=== PATIENT | female | born 1950 | race Caucasian/White ===

== ENCOUNTER 2019-03-22 07:40 | Outpatient (CLI) | payer MEDICARE, SELFPAY ==
--- NOTE | ~2019-03-22 | MR_ITS ---
EXAMINATION: MR cervical spine wo con DATE: 03/22/2019 08:58 INDICATION: Cervical radiculopathy. TECHNIQUE: Magnetic resonance imaging (MRI) of the cervical spine was performed without intravenous c ontrast. Sequences included sagittal T2-weighted FSE, sagittal STIR FSE, sagittal T1-weighted FSE, ax ial MERGE, and axial T2-weighted FSE. COMPARISON: Cervical spine radiographs 12/20/2017 FINDINGS: There is 2 mm anterolisthesis of C3 on C4. Vertebral body heights are normal. There is mild ly decreased disc height at C3-C4 and severely decreased disc height from C4-C5 through C6-C7. The sp inal cord signal intensity is normal. The following disc levels are specifically discussed: C2-C3: There is a central extrusion. There is no uncovertebral joint osteoarthritis. There is mild ri ght and severe left facet joint osteoarthritis. There is no neural foraminal stenosis. There is no ce ntral canal stenosis. C3-C4: The disc does not extend beyond the endplate margin. There is moderate bilateral uncovertebral joint osteoarthritis. There is mild right and severe left facet joint osteoarthritis. There is mild bilateral neural foraminal stenosis. There is no central canal stenosis. C4-C5: The disc is bulging. There is severe bilateral uncovertebral joint osteoarthritis. There is mi ld bilateral facet joint osteoarthritis. There is moderate right and mild left neural foraminal steno sis. There is mild central canal stenosis with ventral indentation of spinal cord. C5-C6: The disc is bulging. There is severe bilateral uncovertebral joint osteoarthritis. There is no facet joint osteoarthritis. There is moderate bilateral neural foraminal stenosis. There is mild jas tral canal stenosis with ventral indentation of spinal cord. C6-C7: The disc is bulging. There is moderate right and severe left uncovertebral joint osteoarthriti s. There is moderate bilateral facet joint osteoarthritis. There is mild right and moderate left neur al foraminal stenosis. There is mild central canal stenosis. C7-T1: The disc does not extend beyond the endplate margin. There is no uncovertebral joint osteoarth ritis. There is severe bilateral facet joint osteoarthritis. There is mild left neural foraminal sten osis. There is no central canal stenosis. IMPRESSION: 1. Severe cervical spondylosis. Reviewed, dictated and finalized at location A. GER REIMBURSEMENT
== END 2019-03-22 07:41 | disposition home or self-care (01) ==
PROVIDERS: PCP Internal Medicine; Visit Provider Internal Medicine
DX: M47.22 Other spondylosis with radiculopathy, cervical region (principal); M05.79 Rheumatoid arthritis with rheumatoid factor of multiple sites without organ or systems involvement
CPT/HCPCS: 72141

== ENCOUNTER 2019-04-04 08:45 | Outpatient (CLI) | payer MEDICARE, SELFPAY ==
--- NOTE | ~2019-04-04 | MM_ITS ---
EXAMINATION: MM screening kaleigh BI w maria l HISTORY: Screening mammogram TECHNIQUE: Craniocaudal and mediolateral oblique 3-D tomosynthesis images were obtained and synthetic 2-D images were generated. CAD analysis was submitted and interpreted. COMPARISON: No prior mammogram is available for comparison at this institution. BREAST PARENCHYMAL COMPOSITION: The breasts are heterogeneously dense, which may obscure small masses . FINDINGS: There are bilateral mammographic asymmetries. Comparison with any prior available mammogram s is recommended. If no prior examinations are available, then bilateral diagnostic mammography is re commended, with ultrasound if required. No malignant calcification, skin thickening or retraction is detected. IMPRESSION: 1. Bilateral mammographic asymmetries 2. Comparison with prior mammogram examinations is recommended; if not available, bilateral diagnosti c mammography and possibly breast ultrasound is recommended. BI-RADS Category 0: Incomplete: Needs additional imaging evaluation. Reviewed, dictated and finalized at location A. RAL SUPPLY MANAGER IMPRESSION: 1. Bilateral mammographic asymmetries 2. Comparison with prior mammogram examinations is recommended; if not availabl e, bilateral diagnostic mammography and possibly breast ultrasound is recommend ed. BI-RADS Category 0: Incomplete: Needs additional imaging evaluation.
--- NOTE | ~2019-04-04 | DEXA_ITS ---
Bone Density Report Name: Chandrika Welch Age: 69 Sex: Female Ethnicity: White Date of : 1950 Indication: postmenopausal; height loss; asthma or emphysema; rheumatoid arthritis; Referring Provider: MARGARITO HOOKS Study: Bone densitometry was performed. Exam Date: April 04, 2019 Accession number: [id number] Bone Density: Region BMD T-score Z-score Classification AP Spine (L1-L4) 0.693 -3.2 -1.0 Osteoporosis Femoral Neck (Left) 0.517 -3.0 -1.1 Osteoporosis Total Hip (Left) 0.615 -2.7 -1.1 Osteoporosis Total Hip Bilateral Avg 0.575 -3.1 -1.5 Osteoporosis Femoral Neck (Right) 0.483 -3.3 -1.4 Osteoporosis Total Hip (Right) 0.533 -3.4 -1.8 Osteoporosis World Health Organization criteria for BMD impression classify patients as: Normal (T-score at or above -1.0), Osteopenia (T-score between -1.0 and -2.5), or Osteoporosis (T-score at or below -2.5). 10-year Fracture Risk: FRAX not reported because: Some T-score for Spine Total or Hip Total or Femoral Neck at or below -2.5 Treated for osteoporosis Clinical Information Provided by Patient: Has rheumatoid arthritis Is being treated for osteoporosis Has used the following medications: Fosamax (i.e. alendronate), Vitamin D, Calcium Has the following medical conditions: Asthma or Emphysema Patient maximum height was 68 Menopause Age: 48 No regular weight bearing exercise Drinks caffeinated beverages Onset of menses at age 10 Number of children 2 Impression: The patient has osteoporosis, based on the Right Total Hip T-score. Discussion: It is important to ask patients whether they are taking their medications and to encourage continued and appropriate compliance with their osteoporosis therapies to reduce fracture risk. It is also important to review their risk factors and encourage appropriate calcium and vitamin D intakes, exercise, fall prevention and other lifestyle measures. Follow-Up: Consider a repeat BMD and Vertebral Fracture Assessment (VFA) exam in 2 years or sooner if medically necessary, to reassess this patient's status. Reported by: HANH on 04/04/2019 9:30:00 AM. Reviewed, dictated and finalized at location ADonovan WEINER
== END 2019-04-04 08:46 | disposition home or self-care (01) ==
LOC: ANHIMG 08:54
PROVIDERS: PCP Internal Medicine; Visit Provider Internal Medicine
DX: Z12.31 Encounter for screening mammogram for malignant neoplasm of breast (principal); N95.9 Unspecified menopausal and perimenopausal disorder; M81.0 Age-related osteoporosis without current pathological fracture; R92.8 Other abnormal and inconclusive findings on diagnostic imaging of breast
CPT/HCPCS: 77063; 77067; 77080

== ENCOUNTER 2019-04-19 08:56 | Outpatient (CLI) | payer MEDICARE, SELFPAY ==
--- NOTE | 2019-04-19 | EST_ITS ---
Patient Info Name: Chandrika Welch Age: 69 years : 1950 Gender: Female Ht: 66 in Wt: 115 lbs BSA: 1.55 m2 Exam Date: 04/19/2019 10:37 AM Exam Location: [facility] Stress Patient Status: Outpatient Admit Date: 04/19/2019 Staff Ordering Physician: Jarvis Castillo MD Attending Provider: Jarvis Castillo MD Exercise Technologist: Solange Torres RDCS Exercise Physician: Sanjay Palm DO Exam Type: CA stress kaye w NM Study Info Indications I25.10 - Atherosclerotic heart disease of [place] coronary artery without angina pectoris A regadenoson stress test was performed. Summary 1. 1. Negative lexiscan stress test for ischemic ST changes by ECG criteria. 2. 2. Baseline hypertension. 3. 3. Nuclear scan to follow and will be reported separately. Please correlate with it. 4. 4. Patient informed of the above results. Protocol: Lexiscan Stress ECG Details Stage: REST Duration (min): 5 min : 31 sec HR (bpm): 81 SBP (mmHg): 151 DBP (mmHg): 87 Stage: REST Duration (min): 26 min : 17 sec HR (bpm): 85 SBP (mmHg): 151 DBP (mmHg): 87 Stage: STAGE 1 Duration (min): 1 min : 0 sec HR (bpm): 103 SBP (mmHg): 141 DBP (mmHg): 83 Stage: RECOVERY Duration (min): 1 min : 0 sec HR (bpm): 109 SBP (mmHg): 139 DBP (mmHg): 82 Stage: RECOVERY Duration (min): 2 min : 0 sec HR (bpm): 109 SBP (mmHg): 139 DBP (mmHg): 82 Stage: RECOVERY Duration (min): 3 min : 0 sec HR (bpm): 108 SBP (mmHg): 138 DBP (mmHg): 81 Stage: RECOVERY Duration (min): 3 min : 18 sec HR (bpm): 105 SBP (mmHg): 138 DBP (mmHg): 81 Rest HR: 85 bpm Peak HR: 111 bpm Rest Sys BP: 151 mmHg Peak Sys BP: 141 mmHg Max Pred HR: 149 bpm % Max Pred HR: 74 % Target HR: 127 bpm Max RPP: 15,651 bpm*mmHg Termination Reason: Completed protocol Cardiac Symptoms: Shortness of breath Total Time: 1 min : 0 sec Rest Lassiter BP: 87 mmHg Peak Lassiter BP: 83 mmHg Total Dose: 0.4 mg Resting ECG Sinus rhythm with borderline ST abnormality in ant/inf leads. Stress ECG No ST changes. Arrhythmias None. Report Signatures
--- NOTE | ~2019-04-19 | NM_ITS ---
EXAMINATION: NM kaye stress w perfusion EXAM DATE: 04/19/2019 12:54 INDICATION: Atherosclerotic heart disease of [place] coronary arteries. TECHNIQUE: Rest images were obtained following intravenous administration of 8.5 mCi Tc99m tetrofosmi n (Myoview). The patient was infused intravenously with Lexiscan (regadenoson). Then, 24.9 mCi Tc99m tetrofosmin (Myoview) was administered intravenously, and stress images were obtained. Data was recon structed into short axis and horizontal and vertical long axis SPECT images. Gated SPECT images were also obtained. There is no prior study for comparison. FINDINGS: There is no definite reversible or fixed perfusion abnormality to suggest ischemia or infar ction. There is normal left ventricular wall motion. End diastolic volume: 68 mL. End-systolic volume: 28 mL. Left ventricular ejection fraction: 59%. IMPRESSION: 1. Normal myocardial perfusion at rest and during stress. 2. Left ventricular ejection fraction measuring 59%. Reviewed, dictated and finalized at location B. TEIN BROS BAGELS ASSISTANT MANAGER
== END 2019-04-19 08:57 | disposition home or self-care (01) ==
PROVIDERS: PCP Internal Medicine; Visit Provider Internal Medicine
DX: I25.10 Atherosclerotic heart disease of native coronary artery without angina pectoris (principal)
CPT/HCPCS: 78452; 93017; A9502; J2785

== ENCOUNTER 2019-05-06 11:20 | Outpatient (CLI) | payer MEDICARE, SELFPAY ==
--- NOTE | ~2019-05-06 | MMUS_ITS ---
EXAMINATION: MM diagnostic mammo BI, US breast BI limited HISTORY: Follow-up breast asymmetries TECHNIQUE: Additional 3-D tomosynthesis images of the breasts were performed and synthetic 2-D images were generated. CAD analysis was submitted and interpreted. High resolution bilateral breast ultraso und was performed. COMPARISON: Comparison to multiple prior studies sequentially, with oldest reviewed study dated 11/20. FINDINGS: MAMMOGRAPHIC FINDINGS: The breasts are heterogenously dense, which may obscure small masses. There are no suspicious masses, calcifications or architectural distortion in either breast to suggest malignancy. No significant in terval change. ULTRASOUND: The right axilla there is a 2.5 cm lymph node with normal hilum, likely reactive. No other right aubree st masses are identified. In the left breast at 12:00 there is an oval hypoechoic mass measuring 1.8 x 1.6 x 1.4 cm with internal vascularity. No significant posterior features. IMPRESSION: 1. Nonspecific oval hypoechoic left breast mass at 12:00 with internal vascularity. This does not hav e a typical appearance for intramammary lymph node. Ultrasound left breast biopsy recommended. BI-RAD S Category 4. 2. Probable benign right axillary lymph node. Six-month follow-up ultrasound recommended. BI-RADS Cat egory 3, likely benign. Reviewed, dictated and finalized at location A. IMPRESSION: 1. Nonspecific oval hypoechoic left breast mass at 12:00 with internal vascular ity. This does not have a typical appearance for intramammary lymph node. Ultra sound left breast biopsy recommended. BI-RADS Category 4. 2. Probable benign right axillary lymph node. Six-month follow-up ultrasound re commended. BI-RADS Category 3, likely benign.
== END 2019-05-06 11:21 | disposition home or self-care (01) ==
LOC: ANHIMG 11:23
PROVIDERS: PCP Internal Medicine; Visit Provider Internal Medicine
DX: R92.8 Other abnormal and inconclusive findings on diagnostic imaging of breast (principal)
CPT/HCPCS: 76642; 77066

== ENCOUNTER 2019-05-30 13:01 | Outpatient (CLI) | payer MEDICARE, SELFPAY ==
--- NOTE | ~2019-05-30 | US_ITS ---
US breast LT limited DATE: 05/30/2019 14:00 INDICATION: Nonspecific oval hypoechoic left breast mass suggested at 12:00 on 05/06/2019 bilateral di gital screening mammogram examination TECHNIQUE: High-resolution ultrasound imaging of left breast at 12:00 COMPARISON: 05/06/2019 bilateral Limited breast ultrasound bilateral diagnostic digital mammogram 04/04/2019 bilateral digital screening mammogram FINDINGS: No reproducible breast mass or suspicious shadowing is evident at 12:00. IMPRESSION: BI-RADS Category 1: Negative Recommendation: Routine annual mammographic screening Reviewed, dictated and finalized at Location A. Reviewed, dictated and finalized at location A.
== END 2019-05-30 13:02 | disposition home or self-care (01) ==
PROVIDERS: PCP Internal Medicine; Visit Provider Surgery
DX: R92.8 Other abnormal and inconclusive findings on diagnostic imaging of breast (principal)
CPT/HCPCS: 76642

== ENCOUNTER 2020-04-30 08:08 | Outpatient (CLI) | payer MEDICARE, SELFPAY ==
--- NOTE | ~2020-04-30 | XR_ITS ---
EXAMINATION: XR barium swallow modified DATE: 04/30/2020 08:54 INDICATION: Unspecified abnormal involuntary movements, history of breast tremor TECHNIQUE: Modified barium esophagram was performed by myself to administered fluoroscopy, in conjun ction with speech pathologist who administered barium in varying consistencies as per speech patholog ist documentation. This was recorded on tape. A single fluoroscopic spot image was recorded. The DAP for this procedure was 0.8 Gycm2. Fluoroscopy exposure time was 1.4 minutes. FINDINGS: Oral stage: Adequate function. Pharyngeal phase: Adequate function. Laryngeal penetration: None. Aspiration: None. Laryngeal sensitivity: Present. IMPRESSION: Normal modified esophagram. Please refer to speech pathologist findings and specific feed ing recommendations. Reviewed, dictated and finalized at location A. UP MOLD TECHNICIAN IMPRESSION: Normal modified esophagram. Please refer to speech pathologist find ings and specific feeding recommendations.
[2020-04-30 13:30] VITALS: PULSE 92; O2SAT 93
[2020-04-30 13:35] VITALS: PULSE 112; O2SAT 85
[2020-04-30 13:37] VITALS: O2SAT 87
[2020-04-30 13:38] VITALS: O2SAT 90
[2020-04-30 13:45] VITALS: PULSE 89; O2SAT 94
--- NOTE | 2020-04-30 14:02 | PCRCNOTE ---
Home o2 eval faxed to dr. zelaya called office to to inform of new set up
--- NOTE | 2020-04-30 14:03 | HOMEO2EVAL ---
Home Oxygen Evaluation RC: Home Oxygen (O2) Evaluation Start: 04/30/20 13:59 Freq: Status: Active Protocol: RPE Activity Type Activity Date Activity User E-Sign Co-Sign Detail Recorded Client Recorded Date Recorded By Document 04/30/20 13:30 ESPERANZA [id number] 04/30/20 14:02 ESPERANZA Document 04/30/20 13:35 ESPERANZA [email or web address] 04/30/20 14:02 ESPERANZA Document 04/30/20 13:37 ESPERANZA [email or web address] 04/30/20 14:02 ESPERANZA Document 04/30/20 13:38 ESPERANZA [email or web address] 04/30/20 14:02 ESPERANZA Document 04/30/20 13:45 ESPERANZA [email or web address] 04/30/20 14:02 ESPERANZA 04/30/20 04/30/20 04/30/20 13:30 13:35 13:37 Home O2 Evaluation Test Phase Resting Exercise Exercise Oxygen Delivery Room Air Room Air Nasal Cannula Oxygen Flow Rate (L/min) 1 Pulse Oximetry (90-100 %) 93 85 L 87 L Pulse Rate (60-100 beats/min) 92 112 H Activity Tolerance Excellent Ambulation Distance (feet) 600 Home Oxygen Evaluation Comments Treatment Charges O2 Evaluation - Outpatient 04/30/20 04/30/20 13:38 13:45 Home O2 Evaluation Test Phase Exercise Resting Oxygen Delivery Nasal Cannula Room Air Oxygen Flow Rate (L/min) 2 Pulse Oximetry (90-100 %) 90 94 Pulse Rate (60-100 beats/min) 89 Activity Tolerance Ambulation Distance (feet) Home Oxygen Evaluation Comments Pt. requires 2 liters with exertion/ activity. Treatment Charges
--- NOTE | 2020-04-30 16:43 | STOPEVAL ---
MODIFIED BARIUM SWALLOW EVALUATION: Thank you for referring Chandrika Welch to [facility].? Attending Provider: Jarvis Castillo MD fax# [phone] *ST Outpatient Evaluation Outpatient Past Medical History Past Medical History Source of Past Medical History Patient Neurological History Hx Other Neurological Disorders R/O; slight tremor--new Respiratory History Hx Chronic Obstructive Pulmonary Disease Yes (COPD) Evaluation Information Problem Diagnosis dysphagia Onset 2 years ago Additional Evaluation Detail pt reports having a tremor which she states is relatively new. Pt reports that she has increased mucous and coughing to the point of choking ; pt then reported that she has choked several times Prior Level of Function Prior Swallow Level Prior Intake Method Oral Prior Diet Regular (Level 7 Diet) Prior Liquid Consistency Thin (Level 0 Diet) Pain Assessment Timing of Pain Assessment Timing of Pain Assessment Assessment Self Report Self Report Pain Level 0 Pain Score Pain Score 0: Self Report Modified Barium Swallow Evaluation Consistency Solid Consistency Method of Presentation Spoon Oral Preparatory Symptoms Within Functional Limits Oral Phase Symptoms Within Functional Limits Pharyngeal Phase Symptoms Within Functional Limits Severity of Vallecular Residue None - 0% No Residue Severity of Pyriform Sinus Residue None - 0% No Residue 8 Point Laryngeal Penetration-Aspiration Material Does Not Enter Airway Scale Cervical/Esophageal Symptoms Within Functional Limits Mixed Consistency Method of Presentation Spoon Oral Preparatory Symptoms Within Functional Limits Oral Phase Symptoms Within Functional Limits Pharyngeal Phase Symptoms Within Functional Limits Severity of Vallecular Residue None - 0% No Residue Severity of Pyriform Sinus Residue None - 0% No Residue 8 Point Laryngeal Penetration-Aspiration Material Does Not Enter Airway Scale Cervical/Esophageal Symptoms Within Functional Limits Pureed Consistency Method of Presentation Spoon Oral Preparatory Symptoms Within Functional Limits Oral Phase Symptoms Within Functional Limits Pharyngeal Phase Symptoms Within Functional Limits Severity of Vallecular Residue None - 0% No Residue Severity of Pyriform Sinus Residue None - 0% No Residue 8 Point Laryngeal Penetration-Aspiration Material Does Not Enter Airway Scale Cervical/Esophageal Symptoms Within Functional Limits Thin Uncontrolled 2 Method of Presentation Straw Oral Preparatory Symptoms Within Functional Limits Oral Phase Sym
== END 2020-04-30 08:09 | disposition home or self-care (01) ==
PROVIDERS: PCP Internal Medicine; Visit Provider Internal Medicine
DX: R25.9 Unspecified abnormal involuntary movements (principal); R13.10 Dysphagia, unspecified
CPT/HCPCS: 92611; 94618

== ENCOUNTER → 2020-06-05 01:50 | Outpatient (CLI) | payer MEDICARE, SELFPAY ==
[2020-06-05 19:39] LABS: SARS-CoV-2 RNA PCR Negative
== END ==
PROVIDERS: PCP Internal Medicine; Visit Provider Internal Medicine Gastroenterology
DX: Z01.812 Encounter for preprocedural laboratory examination (principal); Z20.822 Contact with and (suspected) exposure to COVID-19
CPT/HCPCS: C9803; U0003; U0005

== ENCOUNTER 2020-06-08 00:53 | Day surgery (SDC) | payer MEDICARE, SELFPAY ==
[2020-05-29 10:52] VITALS: BMI 18.3
[2020-06-08 08:29] VITALS: BP 161/87; PULSE 94; RESP 18; TEMP 36.6; O2SAT 94; BMI 18.1
[2020-06-08] MEDS: LACTATED RINGERS 1,000 ML 150 ML IV CONT (08:37)
--- NOTE | 2020-06-08 09:02 | PM.HPGS ---
History of Present Illness History of Present Illness Consent: Risks, benefits, and alternatives have been discussed and questions answered. Patient agrees to proceed with procedure. Chief complaint: hx of colon polyps Narrative: Chandrika Welch is a 70 year old female here for colon cancer screening. She has had polyps removed in the past Review of Systems Review of Systems: All systems reviewed & are unremarkable except as noted in HPI and below PMFSH Past Medical History Medical History Abnormal finding of blood chemistry, unspecified Adult BMI <19 kg/sq m Cervicalgia Chronic mitral valve regurgitation Colon cancer screening COPD (chronic obstructive pulmonary disease) DJD (degenerative joint disease), multiple sites Elevated homocysteine Encounter for Medicare annual wellness exam Encounter for routine adult health examination without abnormal findings Encounter for screening mammogram for malignant neoplasm of breast Follow up Hyperlipidemia Migraines Mitral valve regurgitation MVP (mitral valve prolapse) On snf drug therapy Post menopausal problems Radicular pain of shoulder Resting tremor Rheumatoid arthritis Sinus drainage Trigger finger of both hands Vitamin D deficiency Surgical History Surgical History History of lymph node excision Hx of breast surgery 1974 Hx of tubal ligation 1972 Family History Family History Mother Hypertension Family history of atrial fibrillation Family history of congestive heart failure Family history of hearing loss Father Family history of chronic obstructive pulmonary disease Other Cerebrovascular accident Family history of liver disease Social History Social History Smoking packs per day: 1 Smoking cigarettes per day: 20.0 Years smoked: 36 Smoking pack-years: 36.00 Smoking status: Former smoker Tobacco type: cigarettes Alcohol intake: current Alcohol use details: socially Living arrangements: alone Gender identity (if verbalized by the patient): Female Spiritual care concerns: No Meds Home Medications and Allergies Home Medications Medication Instructions Recorded Confirmed Type cholecalciferol (vitamin D3) 50 2,000 unit PO DAILY 01/07/19 05/29/20 History mcg (2,000 unit) tablet folic acid 1 mg tablet 1 mg PO DAILY 01/07/19 05/29/20 History rosuvastatin 10 mg tablet 10 mg PO DAILY #90 tablet 08/16/19 05/29/20 Rx mecobalamin (vitamin B12) 1,000 1,000 mcg SUBLINGUAL DAILY 11/21/19 05/29/20 History mcg disintegrating tablet,sublingual sulfasalazine 500 mg tablet See Rx Instructions .ROUTE 01/27/20 05/29/20 Rx .COMPLEX #540 tablet alendronate 70 mg tablet See Rx Instructions .ROUTE 02/24/20 05/29/20 Rx .COMPLEX #12 tablet fluticasone fur. 100 mcg-umeclid See Rx Instructions .ROUTE 03/23/20 05/29/20 Rx 62.5 mcg-vilant 25 mcg .COMPLEX #60 ea inhalat.powder albuterol sulfate 90 mcg/actuation 1 inh INHALATION Q4H PRN #8.5 g 04/09/20 05/29/20 Rx aerosol inhaler Rinvoq 15 mg PO DAILY 05/29/20 05/29/20 History Allergies Allergy/AdvReac Type Severity Reaction Status Date / Time No Known Allergies Allergy Verified 06/08/20 08:28 Vital Signs Vital Signs - 24 hr 06/08/20 08:29 Temperature 36.6 C Pulse Rate 94 Respiratory Rate 18 Blood Pressure 161/87 H Pulse Oximetry 94 Exam Resp: Auscultation: clear to auscultation bilaterally Cardio: Rate: regular rate Rhythm: regular rhythm GI: GI Palp: Yes Soft to palpation and No Tenderness to palpation present (GI) Assessment and Plan Assessment and plan (1) Colon cancer screening: Code(s): Z12.11 - Encounter for screening for malignant neoplasm of colon Status: Acute Assessment and Plan: C
--- NOTE | 2020-06-08 09:20 | WPDANESEPPF ---
Anes - Initial Pre Proc Eval Procedure: Operation Date: 06/08/20 09:30 Proposed Procedures p Screening Colonoscopy - Collin Prado MD Date/Time: 06/08/20 09:20 Surgeon: Collin Prado MD Pre Op Diagnosis: hx of colon polyps Patient Data Age: 70 Gender: F Height: 5 ft 7 in Weight: 52.4 kg Last Vital Signs Temp 98 F 06/08/20 08:29 Pulse 94 06/08/20 08:29 Resp 18 06/08/20 08:29 BP 161/87 H 06/08/20 08:29 Pulse Ox 94 06/08/20 08:29 Allergies Allergy/AdvReac Type Severity Reaction Status Date / Time No Known Allergies Allergy Verified 06/08/20 08:28 Home Medications Medication Instructions Recorded Confirmed Type cholecalciferol (vitamin D3) 50 2,000 unit PO DAILY 01/07/19 05/29/20 History mcg (2,000 unit) tablet folic acid 1 mg tablet 1 mg PO DAILY 01/07/19 05/29/20 History rosuvastatin 10 mg tablet 10 mg PO DAILY #90 tablet 08/16/19 05/29/20 Rx mecobalamin (vitamin B12) 1,000 1,000 mcg SUBLINGUAL DAILY 11/21/19 05/29/20 History mcg disintegrating tablet,sublingual sulfasalazine 500 mg tablet See Rx Instructions .ROUTE 01/27/20 05/29/20 Rx .COMPLEX #540 tablet alendronate 70 mg tablet See Rx Instructions .ROUTE 02/24/20 05/29/20 Rx .COMPLEX #12 tablet fluticasone fur. 100 mcg-umeclid See Rx Instructions .ROUTE 03/23/20 05/29/20 Rx 62.5 mcg-vilant 25 mcg .COMPLEX #60 ea inhalat.powder albuterol sulfate 90 mcg/actuation 1 inh INHALATION Q4H PRN #8.5 g 04/09/20 05/29/20 Rx aerosol inhaler Rinvoq 15 mg PO DAILY 05/29/20 05/29/20 History Patient hx anesthesia problems: none Family hx anesthesia problems: none PMFSH Past Medical History Medical History Abnormal finding of blood chemistry, unspecified Adult BMI <19 kg/sq m Cervicalgia Chronic mitral valve regurgitation Colon cancer screening COPD (chronic obstructive pulmonary disease) DJD (degenerative joint disease), multiple sites Elevated homocysteine Encounter for Medicare annual wellness exam Encounter for routine adult health examination without abnormal findings Encounter for screening mammogram for malignant neoplasm of breast Follow up Hyperlipidemia Migraines Mitral valve regurgitation MVP (mitral valve prolapse) On snf drug therapy Post menopausal problems Radicular pain of shoulder Resting tremor Rheumatoid arthritis Sinus drainage Trigger finger of both hands Vitamin D deficiency Surgical History Surgical History History of lymph node excision Hx of breast surgery 1974 Hx of tubal ligation 1972 Family History Family History Mother Hypertension Family history of atrial fibrillation Family history of congestive heart failure Family history of hearing loss Father Family history of chronic obstructive pulmonary disease Other Cerebrovascular accident Family history of liver disease Social History Social History Smoking packs per day: 1 Smoking cigarettes per day: 20.0 Years smoked: 36 Smoking pack-years: 36.00 Smoking status: Former smoker Tobacco type: cigarettes Alcohol intake: current Alcohol use details: socially Living arrangements: alone Gender identity (if verbalized by the patient): Female Spiritual care concerns: No Anes - Eval Final PreProcedure Day of Procedure 06/08/20 09:20 Patient weight: normal Heart: regular rate and rhythm Lungs: clear to auscultation Airway: Mallampati scale class II Neurological: alert and oriented Last oral intake: >/= 8 hours ASA classification: III Emergent: no Anesthetic plan: proceed Anesthesia type and monitoring: general GIVS and standard monitoring Informed Consent: The patient's anesthetic plan and its attendant risks and benefits were discussed with the patient/
[2020-06-08 09:51] VITALS: BP 90/53; PULSE 81; RESP 20; O2SAT 100
[2020-06-08 10:01] VITALS: BP 111/62; PULSE 76; RESP 22; O2SAT 97
[2020-06-08 10:11] VITALS: BP 144/72; PULSE 74; RESP 18; O2SAT 97
== END 2020-06-08 10:30 | disposition home or self-care (01) ==
PROVIDERS: PCP Internal Medicine; Visit Provider Internal Medicine Gastroenterology
PROC: 0DJD8ZZ Inspection of Lower Intestinal Tract, Via Natural or Artificial Opening Endoscopic (ICD-10-PCS; CPT 45378; principal; 2020-06-08 09:30)
DX: Z12.11 Encounter for screening for malignant neoplasm of colon (principal); Z86.010 Personal history of colon polyps; J44.9 Chronic obstructive pulmonary disease, unspecified; E78.5 Hyperlipidemia, unspecified; I34.1 Nonrheumatic mitral (valve) prolapse; I34.0 Nonrheumatic mitral (valve) insufficiency; M06.9 Rheumatoid arthritis, unspecified; E55.9 Vitamin D deficiency, unspecified; Z79.51 Long term (current) use of inhaled steroids; Z87.891 Personal history of nicotine dependence
CPT/HCPCS: G0105; J2704; J7120

== ENCOUNTER 2020-09-30 10:31 | Outpatient (CLI) | payer MEDICARE, SELFPAY ==
--- NOTE | ~2020-09-30 | XR_ITS ---
EXAMINATION: XR chest 2V DATE: 09/30/2020 10:58 INDICATION: Shortness of breath TECHNIQUE: Frontal and lateral views of the chest are obtained COMPARISON: 01/06/2013 FINDINGS: There are airspace opacities of the left lung base. There is no pleural effusion or pneumot horax. The cardiomediastinal silhouette is normal. There is moderate thoracic spondylosis. IMPRESSION: 1. Left basilar airspace opacity, consistent with atelectasis versus pneumonia. Reviewed, dictated and finalized at location B.
[2020-09-30 11:47] LABS: Basophils Percent Auto 0.6 % (0.2-1.2); Eosinophils Absolute Auto 0.1 K/mm3 (0-0.3); Eosinophils Percent Auto 1.6 % (0-4.4); Hematocrit 35.9 % (37.0-47.0); Hemoglobin 11.4 g/dL (12.0-15.0); Immature Granulocyte Absolute 0.04 K/mm3 (0.00-0.031); Immature Granulocyte Percent A 0.6 % (0-0.5); Lymphocytes Absolute Auto 1.12 K/mm3 (0.9-3.2); Lymphocytes Percent Auto 16.3 % (18.3-44.2); Mean Corpuscular HGB Conc 31.8 g/dl (32-36); Mean Corpuscular Hemoglobin 30.5 pg (26-34); Mean Platelet Volume 8.8 fl (7.4-10.4); Monocytes Absolute Auto 0.9 K/mm3 (0.1-0.6); Monocytes Percent Auto 12.7 % (2.6-8.5); Neutrophils Absolute Auto 4.7 K/mm3 (1.3-6.7); Neutrophils Percent Auto 68.2 % (45.5-73.1); Platelet Count Result 311 k/mm3 (150-375); Red Blood Count 3.74 M/mm3 (4.2-5.4); Red Cell Distribution Width 13.8 % (11.5-14.5); White Blood Count 6.9 K/mm3 (4.5-10.0)
[2020-09-30 12:02] LABS: Anion Gap 8 mmol/L (8-16); Blood Urea Nitrogen 12 mg/dL (7-17); Calcium 9.7 mg/dL (8.4-10.2); Carbon Dioxide 27 mmol/L (22-30); Chloride 106 mmol/L (98-107); Estimated Glomerular Filt Rate > 60; Glucose 94 mg/dL (65-110); Potassium 4.2 mmol/L (3.4-5.0); Sodium 141 mmol/L (137-145)
[2020-09-30 12:24] LABS: Influenza Control Positive
== END 2020-09-30 10:32 | disposition home or self-care (01) ==
LOC: ANHIMG 10:41
PROVIDERS: PCP Internal Medicine; Visit Provider Internal Medicine
DX: R68.89 Other general symptoms and signs (principal); G43.901 Migraine, unspecified, not intractable, with status migrainosus; R91.8 Other nonspecific abnormal finding of lung field
CPT/HCPCS: 71046; 80048; 85025; 87804

== ENCOUNTER → 2020-10-02 03:50 | Outpatient (CLI) | payer MEDICARE, SELFPAY ==
[2020-10-03 04:07] LABS: SARS-CoV-2 RNA PCR Negative
== END ==
PROVIDERS: PCP Internal Medicine; Visit Provider Internal Medicine
DX: R68.89 Other general symptoms and signs (principal); Z20.822 Contact with and (suspected) exposure to COVID-19
CPT/HCPCS: C9803; U0003; U0005

== ENCOUNTER 2020-10-08 08:18 | Outpatient (CLI) | payer MEDICARE, SELFPAY ==
--- NOTE | ~2020-10-08 | XR_ITS ---
EXAMINATION: XR chest 2V DATE: 10/08/2020 08:44 INDICATION: COPD presenting with pneumonia TECHNIQUE: PA and lateral views of the chest were obtained. COMPARISON: Chest radiograph dated 09/30/2020 FINDINGS: Hyperexpansion of the lungs with increased lucency and architectural distortion the upper lung zones consistent with emphysema. No focal airspace opacities, pulmonary edema, pleural effusion or pneumoth orax. The cardiomediastinal silhouette is normal. Mild thoracic and moderate lower cervical spondylos is. IMPRESSION: 1. Emphysema. Reviewed, dictated and finalized at location A. IMPRESSION: 1. Emphysema.
== END 2020-10-08 08:19 | disposition home or self-care (01) ==
PROVIDERS: PCP Internal Medicine; Visit Provider Internal Medicine
DX: J18.9 Pneumonia, unspecified organism (principal); J43.9 Emphysema, unspecified
CPT/HCPCS: 71046

== ENCOUNTER 2021-05-12 09:59 | Outpatient (CLI) | payer MEDICARE, SELFPAY ==
--- NOTE | ~2021-05-12 | CT_ITS ---
EXAMINATION: CT abdomen pelvis wo con DATE: 05/12/2021 10:12 INDICATION: Hematuria TECHNIQUE: Computed tomography (CT) of the abdomen and pelvis was performed without intravenous contr ast. The dose-length product (DLP) was 144.39 mGy-cm. Automated exposure control and iterative recons truction technique were employed. COMPARISON: 01/04/2018 FINDINGS: There is severe emphysema visualized lung bases. The heart size is normal. There is calcifi ed atherosclerosis of the aorta and many of the other arteries. The liver, spleen, pancreas, and adre nal glands are normal. Stones are present in the nondistended gallbladder. There is a 1.5 cm cyst in the upper pole of the right kidney. The left kidney is unremarkable. No stones are identified in the kidneys, ureters, or bladder. There is no hydronephrosis or hydroureter. No pathologically enlarged a bdominal or pelvic lymph nodes are identified. There is no free intraperitoneal gas or evidence of [place] obstruction. There is calcified atherosclerosis of the aorta and many of the other arteries. A mo derate volume of colonic stool is present. There is mild lumbar spondylosis. IMPRESSION: 1. No CT correlate for the patient's symptoms. 2. Cholelithiasis without evidence of cholecystitis. Reviewed, dictated and finalized at location B.
== END 2021-05-12 10:00 | disposition home or self-care (01) ==
LOC: ANHIMG 10:02
PROVIDERS: PCP Internal Medicine; Visit Provider Internal Medicine
DX: R31.9 Hematuria, unspecified (principal); K80.20 Calculus of gallbladder without cholecystitis without obstruction; N28.1 Cyst of kidney, acquired; I70.0 Atherosclerosis of aorta; M47.816 Spondylosis without myelopathy or radiculopathy, lumbar region
CPT/HCPCS: 74176

== ENCOUNTER 2021-06-25 11:36 | Outpatient (CLI) | payer MEDICARE, SELFPAY ==
--- NOTE | ~2021-06-25 | XR_ITS ---
EXAMINATION: XR hip RT min 2V DATE: 06/25/2021 12:31 INDICATION: Multiple joint pain. TECHNIQUE: 2 views of right hip were obtained. COMPARISON: None. FINDINGS: Bone alignment is normal. No fracture. There is mild right hip osteoarthritis. IMPRESSION: 1. Mild right hip osteoarthritis. Reviewed, dictated and finalized at location A.
--- NOTE | ~2021-06-25 | XR_ITS ---
EXAMINATION: XR ankle RT 2V, XR foot LT 2V, XR foot RT 2V, XR ankle LT 2V DATE: 06/25/2021 12:30 INDICATION: Multiple joint pain TECHNIQUE: 1. Anteroposterior and lateral view of the right ankle were obtained. 2. Dorsoplantar and lateral views of the right foot were obtained. 3. Anteroposterior and lateral view of the left ankle were obtained. 2. Dorsoplantar and lateral views of the left foot were obtained. COMPARISON: None. FINDINGS: Alignment of the left foot and ankle is normal. No fracture. Relatively symmetric pattern of mild lux yarticular osteoarthritis at multiple joints throughout the right foot. Prominent juxta articular ero kushal with thin sclerotic margins and overhanging cortical edges at the lateral aspect of the head of the right fifth metatarsal with appearance classic for gout. A couple additional smaller scattered hernandez barticular lucencies with thin sclerotic margins at the lateral head of the right first metatarsal an d at the medial head of the left first metatarsal which could represent additional erosions. Couple s mall sclerotic bone islands at the right calcaneus and at the right second middle phalanx. No ankle j oint effusions. The soft tissues are unremarkable. IMPRESSION: 1. Juxta articular erosion at the head of the right fifth metatarsal and a couple additional smaller likely erosions at the heads of the bilateral first metatarsals. Differential would include gout or o ther crystalline arthritis or potentially other inflammatory arthritis such as rheumatoid although th e relative preservation of the joint space at the fifth metatarsal phalangeal joint despite the dispr oportionately large erosion would favor a crystalline arthropathy. 2. Mild polyarticular osteoarthritis at the bilateral feet. Reviewed, dictated and finalized at location A. IMPRESSION: 1. Juxta articular erosion at the head of the right fifth metatarsal and a coup le additional smaller likely erosions at the heads of the bilateral first metat arsals. Differential would include gout or other crystalline arthritis or poten tially other inflammatory arthritis such as rheumatoid although the relative pr eservation of the joint space at the fifth metatarsal phalangeal joint despite the disproportionately large erosion would favor a crystalline arthropathy. 2. Mild polyarticular osteoarthritis at the bilateral feet. IMPRESSION: 1. Juxta articular erosion at the head of the right fifth metatarsal and a coup le additional smaller likely erosions at the heads of the bilateral first metat arsals. Differential would include gout or other crystalline arthritis or poten tially other inflammatory arthritis such as rheumatoid although the relative pr eservation of the joint space at the fifth metatarsal phalangeal joint despite the disproportionately large erosion would favor a crystalline arthropathy. 2. Mild polyarticular osteoarthritis at the bilateral feet. IMPRESSION: 1. Juxta articular erosion at the head of the right fifth metatarsal and a coup le additional smaller likely erosions at the heads of the bilateral first metat arsals. Differential would include gout or other crystalline arthritis or poten tially other inflammatory arthritis such as rheumatoid although the relative pr eservation of the joint space at the fifth metatarsal phalangeal joint despite the disproportionately large erosion would favor a crystalline arthropathy. 2. Mild polyarticular osteoarthritis at the bilateral feet.
--- NOTE | ~2021-06-25 | XR_ITS ---
EXAMINATION: XR wrist RT 2V DATE: 06/25/2021 12:30 INDICATION: Multiple joint pain. TECHNIQUE: 2 views of right wrist were obtained. COMPARISON: None. FINDINGS: Bone alignment is normal. No fracture. There is mild osteoarthritis of distal radioulnar tomas int, triscaphe joint, and first carpometacarpal joint. IMPRESSION: 1. Mild polyarticular osteoarthritis. Reviewed, dictated and finalized at location A.
--- NOTE | ~2021-06-25 | XR_ITS ---
EXAMINATION: XR hip LT min 2V DATE: 06/25/2021 12:31 INDICATION: Multiple joint pain. TECHNIQUE: 2 views of left hip were obtained. COMPARISON: None. FINDINGS: Bone alignment is normal. No fracture. There is mild left hip osteoarthritis. IMPRESSION: 1. Mild left hip osteoarthritis. Reviewed, dictated and finalized at location A.
--- NOTE | ~2021-06-25 | XR_ITS ---
EXAMINATION: XR elbow RT 2V, XR elbow LT 2V DATE: 06/25/2021 12:30 INDICATION: Multiple joint pain TECHNIQUE: 1. Anteroposterior and lateral views of the right elbow were obtained. 2. Anteroposterior and lateral views of the left elbow were obtained. COMPARISON: None. FINDINGS: Diffuse osteopenia. Alignment is normal at both elbows. No fracture. Joint spaces are normal. No eros ions. Soft tissues are unremarkable. No elbow joint effusions. IMPRESSION: 1. Diffuse osteopenia. Otherwise negative bilateral oblique radiographs. Reviewed, dictated and finalized at location A. IMPRESSION: 1. Diffuse osteopenia. Otherwise negative bilateral oblique radiographs.
--- NOTE | ~2021-06-25 | XR_ITS ---
EXAMINATION: XR shoulder LT min 2V, XR shoulder RT min 2V DATE: 06/25/2021 12:31 INDICATION: Multiple joint pain TECHNIQUE: 1. AP and axillary views of the left shoulder were obtained. 2. AP and axillary views of the right shoulder were obtained. COMPARISON: None FINDINGS: Normal alignment at both shoulders. No fracture.Mild osteoarthritis at the bilateral acromioclavicul ar joints. Right glenohumeral joint space appears relatively preserved. The left glenohumeral joint s pace is not well profiled but appears likely mildly narrowed. No evident erosions. Severe lower cervi myesha and mild to moderate thoracic spondylosis. Visualized portions of the lungs are clear. Soft tiss ues are unremarkable. IMPRESSION: Mild right glenohumeral and bilateral acromioclavicular osteoarthritis. Reviewed, dictated and finalized at location A. IMPRESSION: Mild right glenohumeral and bilateral acromioclavicular osteoarthritis.
--- NOTE | ~2021-06-25 | XR_ITS ---
EXAMINATION: XR hand LT 2V DATE: 06/25/2021 12:32 INDICATION: Multiple joint pain TECHNIQUE: 1. Posteroanterior and lateral views of the left wrist were obtained. 2. Dorsal palmar and lateral views of the left hand were obtained. 3. Posteroanterior and lateral views of the right wrist were obtained. 2. Dorsal palmar and lateral views of the right hand were obtained. COMPARISON: None. FINDINGS: There is 2 mm ulnar minus variance on both the left and right. Chronic widening of the left scapholun ate interval consistent with scapholunate ligament insufficiency. Alignment of the hands and wrists i s otherwise normal normal. No fracture identified. Relatively symmetric polyarticular osteoarthritis at the bilateral hands and wrists. This is of moderate severity at the left midcarpal, bilateral tri scaphe joints, the left second-fourth and right second, fourth and fifth distal interphalangeal joint s and right fifth proximal interphalangeal joint and otherwise mild at the remaining bilateral interp halangeal joints, metacarpophalangeal joints, the distal radioulnar, wrist, midcarpal and first carpa l metacarpal joints. There are new periarticular erosions at the radial and ulnar aspects of the head of the right first metacarpal, at the head of the fifth proximal phalanx and base of the bilateral f ifth middle phalanges and at the radial side of the base of the left second distal phalanx. No eviden t progression of additional lucency suspicious for chronic erosions at the right ulnar styloid proces s, the head of the right second metacarpal and head of the right middle phalanx. Mild periarticular soft tissue swelling at a few of the interphalangeal joints. IMPRESSION: 1. Several new periarticular erosions at a few of the metacarpophalangeal and interphalangeal joints likely related to a reported history of rheumatoid arthritis. Differential would include other iván lline arthropathy such as gout or other inflammatory arthritides including bradycardiac of arthritis. 2. Mild to moderate polyarticular osteoarthritis at the bilateral hands and wrists. 3. 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 Reviewed, dictated and finalized at location A. IMPRESSION: 1. Several new periarticular erosions at a few of the metacarpophalangeal and i nterphalangeal joints likely related to a reported history of rheumatoid arthri tis. Differential would include other crystalline arthropathy such as gout or o ther inflammatory arthritides including bradycardiac of arthritis. 2. Mild to moderate polyarticular osteoarthritis at the bilateral hands and wri sts. 3. Widening of the scapholunate interval consistent with scapholunate ligament insufficiency with atypical moderate severity osteoarthritis at the midcarpal j oint suggesting developing secondary scapholunate advanced collapse (SLAC) warren t.
--- NOTE | ~2021-06-25 | XR_ITS ---
EXAMINATION: XR hand RT 2V, XR wrist LT 2V DATE: 06/25/2021 12:32 INDICATION: Multiple joint pain TECHNIQUE: 1. Posteroanterior and lateral views of the left wrist were obtained. 2. Dorsal palmar and lateral views of the left hand were obtained. 3. Posteroanterior and lateral views of the right wrist were obtained. 2. Dorsal palmar and lateral views of the right hand were obtained. COMPARISON: None. FINDINGS: There is 2 mm ulnar minus variance on both the left and right. Chronic widening of the left scapholun ate interval consistent with scapholunate ligament insufficiency. Alignment of the hands and wrists i s otherwise normal normal. No fracture identified. Relatively symmetric polyarticular osteoarthritis at the bilateral hands and wrists. This is of moderate severity at the left midcarpal, bilateral lalo caphe joints, the left second-fourth and right second, fourth and fifth distal interphalangeal joints and right fifth proximal interphalangeal joint and otherwise mild at the remaining bilateral interph alangeal joints, metacarpophalangeal joints, the distal radioulnar, wrist, midcarpal and first carpal metacarpal joints. There are new periarticular erosions at the radial and ulnar aspects of the head of the right first metacarpal, at the head of the fifth proximal phalanx and base of the bilateral fi fth middle phalanges and at the radial side of the base of the left second distal phalanx. No evident progression of additional lucency suspicious for chronic erosions at the right ulnar styloid process , the head of the right second metacarpal and head of the right middle phalanx. Mild periarticular so ft tissue swelling at a few of the interphalangeal joints. IMPRESSION: 1. Several new periarticular erosions at a few of the metacarpophalangeal and interphalangeal joints likely related to a reported history of rheumatoid arthritis. Differential would include other iván lline arthropathy such as gout or other inflammatory arthritides including bradycardiac of arthritis. 2. Mild to moderate polyarticular osteoarthritis at the bilateral hands and wrists. 3. 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 Reviewed, dictated and finalized at location A. Reviewed, dictated and finalized at location A. IMPRESSION: 1. Several new periarticular erosions at a few of the metacarpophalangeal and i nterphalangeal joints likely related to a reported history of rheumatoid arthri tis. Differential would include other crystalline arthropathy such as gout or o ther inflammatory arthritides including bradycardiac of arthritis. 2. Mild to moderate polyarticular osteoarthritis at the bilateral hands and wri sts. 3. Widening of the scapholunate interval consistent with scapholunate ligament insufficiency with atypical moderate severity osteoarthritis at the midcarpal j oint suggesting developing secondary scapholunate advanced collapse (SLAC) wris t.
--- NOTE | ~2021-06-25 | XR_ITS ---
EXAMINATION: XR knee LT 2V, XR knee RT 2V DATE: 06/25/2021 12:31 INDICATION: Multiple joint pain TECHNIQUE: 1. Weight bearing anterior and mildly flexed lateral views of the right knee were obtained. 2. Weight bearing anterior and mildly flexed lateral views of the left knee were obtained. COMPARISON: None. FINDINGS: Alignment is normal at both knees. No fracture. Mild joint space narrowing at the medial and lateral compartments of the right knee. Joint spaces in the left knee are normal. No erosions. Soft tissues a re unremarkable with no knee joint effusion. IMPRESSION: 1. Mild osteoarthritis at the medial and lateral compartments of the right knee. 2. Negative left knee radiographs. Reviewed, dictated and finalized at location A. IMPRESSION: 1. Mild osteoarthritis at the medial and lateral compartments of the right knee . 2. Negative left knee radiographs.
== END 2021-06-25 11:37 | disposition home or self-care (01) ==
PROVIDERS: PCP Internal Medicine; Visit Provider Internal Medicine Rheumatology
DX: M25.50 Pain in unspecified joint (principal); M89.9 Disorder of bone, unspecified; M15.9 Polyosteoarthritis, unspecified; M85.89 Other specified disorders of bone density and structure, multiple sites
CPT/HCPCS: 73030; 73070; 73100; 73120; 73502; 73560; 73600; 73620

== ENCOUNTER 2022-02-16 10:01 | Outpatient (CLI) | payer MEDICARE, SELFPAY ==
--- NOTE | ~2022-02-16 | XR_ITS ---
EXAMINATION: XR chest 2V DATE: 02/16/2022 10:39 INDICATION: Other general symptoms and signs TECHNIQUE: PA and lateral views of the chest are obtained. COMPARISON: 10/08/2020 FINDINGS: The lungs are hyperinflated but free of acute opacities. No pleural effusion or pneumothora x. The cardiomediastinal silhouette is normal. There is moderate thoracic spondylosis. IMPRESSION: 1. No acute cardiopulmonary abnormality. Reviewed, dictated and finalized at location B. [employer] SERVER ON CALL
[2022-02-16 10:47] LABS: Basophils Percent Auto 0.4 % (0.2-1.2); Eosinophils Absolute Auto 0.1 K/mm3 (0-0.3); Eosinophils Percent Auto 1.3 % (0-4.4); Hematocrit 38.9 % (37.0-47.0); Hemoglobin 12.2 g/dL (12.0-15.0); Immature Granulocyte Absolute 0.03 K/mm3 (0.00-0.031); Immature Granulocyte Percent A 0.5 % (0-0.5); Lymphocytes Absolute Auto 0.31 K/mm3 (0.9-3.2); Lymphocytes Percent Auto 5.6 % (18.3-44.2); Mean Corpuscular HGB Conc 31.4 g/dl (32-36); Mean Corpuscular Hemoglobin 30.5 pg (26-34); Mean Corpuscular Volume 97.3 fl (80-100); Mean Platelet Volume 9.6 fl (7.4-10.4); Monocytes Absolute Auto 0.8 K/mm3 (0.1-0.6); Monocytes Percent Auto 14.2 % (2.6-8.5); Neutrophils Absolute Auto 4.4 K/mm3 (1.3-6.7); Platelet Count Result 243 k/mm3 (150-375); Red Cell Distribution Width 13.4 % (11.5-14.5); White Blood Count 5.6 K/mm3 (4.5-10.0)
[2022-02-16 10:55] LABS: Anion Gap 7 mmol/L (8-16); Blood Urea Nitrogen 12 mg/dL (7-17); Calcium 8.8 mg/dL (8.4-10.2); Carbon Dioxide 27 mmol/L (22-30); Chloride 101 mmol/L (98-107); Cholesterol 180 mg/dL (0-200); Estimated Glomerular Filt Rate > 60; Glucose 116 mg/dL (65-110); HDL Direct 93 mg/dL; Potassium 3.6 mmol/L (3.4-5.0); Sodium 135 mmol/L (137-145); Triglycerides 65 mg/dL (<150)
[2022-02-16 11:06] LABS: LDL Cholesterol Direct 53 mg/dL
[2022-02-16 11:24] LABS: Hemoglobin A1C 5.7 % (<5.7)
[2022-02-16 11:25] LABS: Thyroid Stimulating Hormone 0.251 uIU/mL (0.465-4.680)
[2022-02-16 11:26] LABS: Influenza A QL RT-PCR Negative (Negative); Influenza B QL RT-PCR Negative (Negative); SARS-CoV-2 RNA PCR Positive
[2022-02-16 11:46] LABS: Free T4 Free Thyroxine 1.35 ng/mL (0.78-2.19); Vitamin D 25 Hydroxy 55.3 ng/mL
== END 2022-02-16 10:02 | disposition home or self-care (01) ==
PROVIDERS: PCP Internal Medicine; Visit Provider Internal Medicine
DX: R79.9 Abnormal finding of blood chemistry, unspecified (principal); E78.5 Hyperlipidemia, unspecified; E55.9 Vitamin D deficiency, unspecified; R68.89 Other general symptoms and signs; Z79.899 Other long term (current) drug therapy
CPT/HCPCS: 71046; 80048; 80061; 82306; 83036; 84439; 84443; 85025; 87636

== ENCOUNTER 2022-07-18 14:53 | Observation (INO) | payer MEDICARE, SELFPAY ==
[2022-07-18] VITALS (21 sets, daily range): BP systolic 97–127; BP diastolic 61–79; PULSE 93–119; RESP 13–120; TEMP 37.1–37.3; O2SAT 80–100
--- NOTE | ~2022-07-18 | CT_ITS ---
EXAMINATION: CT cervical spine wo con DATE: 07/19/2022 11:36 INDICATION: Neck pain. TECHNIQUE: Computed tomography (CT) of the cervical spine was performed without intravenous contrast. Automated exposure control and iterative reconstruction technique were employed. The dose-length pro duct was 103.99 mGy-cm. COMPARISON: None FINDINGS: Emphysema is noted. There is 2 mm retrolisthesis of C5 on C6 and C7 on T1. There is mild ky phosis of cervical spine. Vertebral body heights are normal. There is mildly decreased disc height at C2-C3 and C3-C4 and severely decreased disc height from C4-C5 through C6-C7. The following disc leve ls are specifically discussed: C2-C3: There is no uncovertebral joint osteoarthritis. There is mild right and severe left facet join t osteoarthritis. There is no neural foraminal stenosis. There is no central canal stenosis. C3-C4: There is moderate bilateral uncovertebral joint osteoarthritis. There is severe bilateral face t joint osteoarthritis. There is mild bilateral neural foraminal stenosis. There is no central canal stenosis. C4-C5: There is severe bilateral uncovertebral joint osteoarthritis. There is mild right and severe l eft facet joint osteoarthritis. There is moderate right and mild left neural foraminal stenosis. Ther e is mild central canal stenosis. C5-C6: There is severe bilateral uncovertebral joint osteoarthritis. There is mild bilateral facet tomas int osteoarthritis. There is moderate bilateral neural foraminal stenosis. There is mild central herson l stenosis. C6-C7: There is severe bilateral uncovertebral joint osteoarthritis. There is severe right and modera te left facet joint osteoarthritis. There is mild bilateral neural foraminal stenosis. There is mild central canal stenosis. C7-T1: There is no uncovertebral joint osteoarthritis. There is severe bilateral facet joint osteoart hritis. There is mild left neural foraminal stenosis. There is no central canal stenosis. IMPRESSION: 1. No fracture. 2. Severe cervical spondylosis. Reviewed, dictated and finalized at location L.
--- NOTE | ~2022-07-18 | CT_ITS ---
EXAMINATION: CTA chest PE protocol DATE: 07/18/2022 16:52 INDICATION: Chest wall pain with breathing. Shortness of breath. TECHNIQUE: Computed tomography (CT) pulmonary angiogram of the chest was performed with 100 mL Omnipa que-350 intravenous contrast. Additional 3D reconstructions utilizing coronal maximum intensity proje ction (MIP) were performed. Automated exposure control and iterative reconstruction technique were em ployed. The dose-length product was 193.46 mGy-cm. COMPARISON: None FINDINGS: Excellent contrast opacification of the pulmonary arteries. There is mild streak artifact from dense contrast in the superior vena cava and right atrium. Mild scattered respiratory motion artifact which does not significantly limit evaluation. No pulmonary embolism. No pneumonia, pulmonary edema, pleur al effusion or pneumothorax. Mild cardiomegaly with mild right ventricular and right atrial enlargeme nt. There is enlargement of the central pulmonary arteries consistent with pulmonary arterial hyperte nsion. Small amount of atherosclerotic coronary artery calcification. No pericardial effusion. Thorac ic aorta is normal in caliber with no dissection. No pathologically enlarged thoracic lymphadenopathy . Multiple small calcified gallstones in the dependent aspect of the normal gallbladder. 1 cm cyst at the upper pole of the right kidney. Moderate thoracic spondylosis. IMPRESSION: 1. Severe emphysema and enlargement of the central pulmonary arteries consistent with pulmonary arter ial hypertension. No acute cardiopulmonary disease. 2. Cholelithiasis. Reviewed, dictated and finalized at location A. IMPRESSION: 1. Severe emphysema and enlargement of the central pulmonary arteries consisten t with pulmonary arterial hypertension. No acute cardiopulmonary disease. 2. Cholelithiasis.
--- NOTE | ~2022-07-18 | XR_ITS ---
EXAMINATION: XR chest 2V DATE: 07/18/2022 15:26 INDICATION: Shortness of breath with back pain and fever TECHNIQUE: frontal and lateral views of the chest were obtained. COMPARISON: Chest radiograph dated 02/16/2022 FINDINGS: Mild hyperexpansion of lungs with increased retrosternal clear space and increased lucency and yonathan ectural distortion in the upper lung zones consistent with emphysema. Blunting at the bilateral poste rior sulci which could relate to be hyperexpansion or very small pleural effusions. No other airspace opacities, pulmonary edema or pneumothorax. The cardiomediastinal silhouette is within normal limits for AP technique. Mild lumbar dextrocurvature. Chronic mild anterior wedging of a couple upper thora cic vertebral bodies. IMPRESSION: 1. Emphysema with blunting at the posterior sulci which could be due to the emphysema or very small p leural effusions. Reviewed, dictated and finalized at location A. IMPRESSION: 1. Emphysema with blunting at the posterior sulci which could be due to the emp hysema or very small pleural effusions.
--- NOTE | 2022-07-18 14:59 | ECG_ITS ---
Measurements Intervals [place] Rate: 0 P: MS: 0 QRS: QRSD: 0 T: QT: 0 QTc: 0 Interpretive Statements SINUS OR ECTOPIC ATRIAL TACHYCARDIA NON-CONDUCTED PREMATURE ATRIAL COMPLEXES BORDERLINE ST-T WAVE ABNORMALITY- DIFFUSE LEADS BASELINE ARTIFACT- AVR, AVL, AVF, V1-V6 ABNORMAL ECG NO PREVIOUS ECG AVAILABLE FOR COMPARISON Electronically Signed On 07-18-2022 21:18:14 CDT by Sanjay Palm D.O.
[2022-07-18 15:12] LABS: Hematocrit 37.3 % (37.0-47.0); Hemoglobin 12.1 g/dL (12.0-15.0); Mean Corpuscular HGB Conc 32.4 g/dl (32-36); Mean Corpuscular Hemoglobin 31.3 pg (26-34); Mean Corpuscular Volume 96.4 fl (80-100); Mean Platelet Volume 8.9 fl (7.4-10.4); Platelet Count Result 210 k/mm3 (150-375); Red Blood Count 3.87 M/mm3 (4.2-5.4); Red Cell Distribution Width 13.3 % (11.5-14.5)
[2022-07-18 15:25] LABS: Alanine Aminotransferase 25 U/L (6-35); Albumin Level 4.2 g/dL (3.5-5.1); Alkaline Phosphatase 37 U/L (38-126); Anion Gap 6 mmol/L (8-16); Aspartate Amino Transferase 32 U/L (14-36); Bilirubin,Total 0.5 mg/dL (0.2-1.3); Blood Urea Nitrogen 30 mg/dL (7-17); Calcium 8.1 mg/dL (8.4-10.2); Carbon Dioxide 26 mmol/L (22-30); Chloride 102 mmol/L (98-107); Estimated CRCL calculation 74 ml/min; Estimated Glomerular Filt Rate > 60; Glucose 102 mg/dL (65-110); Potassium 3.9 mmol/L (3.4-5.0); Sodium 134 mmol/L (137-145)
[2022-07-18 15:42] LABS: Band Neutrophils Percent 18 % (0-6); Monocytes Absolute Manual 0.55 K/mm3 (0.1-0.90); Monocytes Percent Manual 11 % (3-9); Neutrophils Absolute Manual 4.25 K/mm3 (1.7-7.2); Neutrophils Percent Manual 67 % (46-73); Total Cells Counted 100
[2022-07-18 15:43] LABS: Platelet Estimate Adequate (Adequate); Schistocytes None Seen (NORMAL)
[2022-07-18] MEDS: KETOROLAC 15 MG/ML VIAL (*BKC) IV PUSH (15:55)
[2022-07-18] MEDS: SODIUM CHLORIDE 0.9% IV 1,000 ML 999 ML IV CONT (15:56)
[2022-07-18 16:28] LABS: Influenza A QL RT-PCR Negative (Negative); Influenza B QL RT-PCR Negative (Negative); SARS-CoV-2 RNA PCR Negative (Negative)
--- NOTE | 2022-07-18 17:10 | PC.NURSE ---
Hypoxia noted on monitor, pt placed on 2L NC.
[2022-07-18] MEDS: IPRATROPIUM BR 0.02% INH SOLN 0.5 MG/2.5 ML VIAL INHALATION (17:53)
[2022-07-18] MEDS: LEVALBUTEROL NEB 1.25 MG/3 ML INHALATION (17:53)
--- NOTE | 2022-07-18 18:30 | ED.GENADULT ---
HPI - General Adult General Chief complaint: Shortness of Breath/Dyspnea Stated complaint: SOB, upper back pain Time Seen by Provider: 07/18/22 14:57 History of Present Illness HPI narrative: Patient is a 72-year-old female who presents ER with shortness of breath. Reports she woke up this morning and been feeling short of breath throughout the day. Has history of COPD and emphysema. She reports she started having some back pain along with it. Mild pain with deep breath. She also reports generalized myalgias body aches into her legs. She reports that she had a temperature of 100.5 ?F. No runny nose or sore throat. She does have some cough. No chest pain or pressure. No known sick contacts. Patient reports dysuria x3 over the last week. Related Data Home Medications Medication Instructions Recorded Confirmed cholecalciferol (vitamin D3) 50 2,000 unit PO DAILY 01/07/19 07/15/22 mcg (2,000 unit) tablet folic acid 1 mg tablet 1 mg PO DAILY 01/07/19 07/15/22 mecobalamin (vitamin B12) 1,000 1,000 mcg sublingual DAILY 11/21/19 07/15/22 mcg disintegrating tablet,sublingual Rinvoq 15 mg PO DAILY 05/29/20 07/15/22 Allergies Allergy/AdvReac Type Severity Reaction Status Date / Time No Known Allergies Allergy Verified 07/18/22 15:06 Review of Systems Review of Systems: All systems reviewed & are unremarkable except as noted in HPI and below Constitutional: Constitutional: Denies chills, Reports fatigue and Reports fever(s) ENT: Denies nasal congestion and Denies sore throat Cardiovascular: Cardiovascular: Denies chest pain, Denies rapid heart rate and Denies radiating jaw, neck or arm pain Respiratory: Respiratory: Reports cough, Reports dyspnea and Denies wheezing Gastrointestinal: Gastrointestinal: Denies abdominal pain, Reports nausea and Denies vomiting Genitourinary: Genitourinary: Denies nocturia and Reports dysuria Musculoskeletal: Musculoskeletal: Reports back pain, Reports myalgias, Denies arthralgias and Denies joint swelling PMFSH Past Medical History Medical History Abnormal finding of blood chemistry, unspecified Adult BMI <19 kg/sq m Cervicalgia Chronic mitral valve regurgitation Colon cancer screening COPD (chronic obstructive pulmonary disease) DJD (degenerative joint disease), multiple sites Elevated coronary artery calcium score Elevated homocysteine Encounter for Medicare annual wellness exam Encounter for routine adult health examination without abnormal findings Encounter for screening mammogram for malignant neoplasm of breast Follow up Hematuria History of colonic polyps Hyperlipidemia Migraines Mitral valve regurgitation MVP (mitral valve prolapse) Need for COVID-19 vaccine On intermediate accountant drug therapy Personal history of COVID-19 Post menopausal problems Radicular pain of shoulder Resting tremor Rheumatoid arthritis Sinus drainage Trigger finger of both hands Vitamin D deficiency Surgical History Surgical History History of lymph node excision Hx of breast surgery 1974 Hx of tubal ligation 1972 Family History Family History Mother Hypertension Family history of atrial fibrillation Family history of congestive heart failure Family history of hearing loss Father Family history of chronic obstructive pulmonary disease Other Cerebrovascular accident Family history of liver disease Social History Social History Smoking packs per day: 1 Smoking cigarettes per day: 20.0 Years smoked: 36 Smoking pack-years: 36.00 Smoking status: Former smoker Tobacco type: cigarettes Alcohol intake: current Alcohol use details: socially Lack of Transportation: No Lack of Food: Never True Current Housing: I Have Housing Concerne
--- NOTE | 2022-07-18 19:13 | PC.NURSE ---
Pt taken to the bathroom via wheelchair, without O2. When pt returned to room she states that she was very SOB and O2 was 80%. Pt placed back on O2 at this time.
[2022-07-18 19:17] LABS: Appearance Urine Clear (Clear); Bacteria Urine None Seen /hpf; Bilirubin Urine Negative (Negative); Blood Urine 2+ (Negative); Color Urine Yellow (Yellow); Glucose Urine UA Negative (Negative); Ketones Urine Negative (Negative); Leukocyte Esterase Ur Negative LEU/UL (Negative); Nitrate Urine Negative (Negative); Non Pathogenic Casts 0-2; Protein Urine Negative (Negative); Squamous Epithelial Cell Urine None seen /hpf (Few); Urobilinogen Urine 0.2 mg/dL (<2.0); WBC Urine 0-5 /hpf
[2022-07-18] MEDS: methylPREDNISolone SOD SUCC 125 MG VIAL IV PUSH (19:25)
[2022-07-18 19:28] LABS: Add Urine Microscopic? YES; Specific Grav Ur 1.077 (1.001-1.035)
--- NOTE | 2022-07-18 19:36 | PC.NURSE ---
Pt was removed from o2 at 191 by this Rn to assess o2 stat without, pt stats in 90s but with any movement stats drop back to mid to low 80s. Pt placed back on oxygen 2L at this time.
[2022-07-18] MEDS: MORPHINE SULFATE (*CRX) 2 MG/ML INJ IV PUSH (20:01)
--- NOTE | 2022-07-18 20:35 | PM.IMHP ---
H&P: HPI History of Present Illness Date/Time: 07/18/22 20:35 Chief Complaint: Shortness of breath Narrative: this is a 72-year-old female patient who has a history of COPD and does not wear oxygen at home. The patient woke up this morning has been feeling short of breath throughout the day. The patient states that she was coughing yesterday but not today. She has been having some lower back pain and some middle back pain some pain in between her shoulders. She had mild pain with deep inspiration. She also had some generalized myalgias and malaise. She reported that she had a temperature as high as 100.5?. She also stated that she was very nauseated earlier today. She has no known sick contacts. The patient has dysuria over the last week. She is negative for influenza A/B and COVID. Chest x-ray was read as emphysema with blunting in the posterior sulci which could be due to the emphysema or very small pleural effusions. CTA was read as severe emphysema and enlargement of the central pulmonary arteries consistent with pulmonary artery hypertension. No acute cardiopulmonary disease. Cholelithiasis. The patient was given IV fluids, Toradol, neb treatment, Solu-Medrol in morphine. The patient is being admitted to observation status on the date of service of 07/18/2022. Review of Systems Review of Systems: All systems reviewed & are unremarkable except as noted in HPI and below Constitutional: Constitutional: Reports as per HPI and Reports no additional constitutional complaints Eyes: Eyes: Reports as per HPI and Reports no additional eye complaints ENT: Reports system reviewed and no additional complaints, except as documented and Reports Normal hearing present Cardiovascular: Cardiovascular: Reports no additional cardiovascular complaints Respiratory: Respiratory: Reports no additional respiratory complaints and Reports no additional respiratory complaints Gastrointestinal: Gastrointestinal: Reports as per HPI and Reports no additional gastrointestinal complaints Musculoskeletal: Musculoskeletal: Reports no additional musculoskeletal complaints Integumentary/Breasts: Skin/Breast: Reports system reviewed and no additional complaints, except as docu and Reports as per HPI Neurologic: Reports system reviewed and no additional complaints, except as documented, Reports as per HPI and Reports Normal hearing present Psychiatric: Psychiatric: Reports no additional psychiatric complaints and Reports as per HPI Endocrine: Endocrine: Reports no additional endocrine complaints Hematologic/Lymphatic: Hematologic/Lymphatic: Reports no additional hematologic/lymphatic complaints Allergic/Immunologic: Allergic/Immunologic: Reports no additional allergic/immunologic complaints PMFSH Past Medical History Medical History Abnormal finding of blood chemistry, unspecified Adult BMI <19 kg/sq m Cervicalgia Chronic mitral valve regurgitation Colon cancer screening COPD (chronic obstructive pulmonary disease) DJD (degenerative joint disease), multiple sites Elevated coronary artery calcium score Elevated homocysteine Encounter for Medicare annual wellness exam Encounter for routine adult health examination without abnormal findings Encounter for screening mammogram for malignant neoplasm of breast Follow up Hematuria History of colonic polyps Hyperlipidemia Migraines Mitral valve regurgitation MVP (mitral valve prolapse) Need for COVID-19 vaccine On intermediate card tender drug therapy Personal history of COVID-19 Post menopausal problems Radicular pain of shoulder Resting tremor Rheumatoid arthritis Sinus drainage Trigger finger of both hands Vitamin D deficiency Surgical History Surgical History (Updated 07/18/22 @ 22:06 by Luisa Carrasquillo NP) H/O colonoscopy with polypectomy History of lymph node excision Hx of breast surgery 1974 Hx of tubal ligation 1972 S/P tonsillectomy
[2022-07-18] MEDS: methylPREDNISolone SOD SUCC 125 MG VIAL 60 MG IV PUSH (23:33)
[2022-07-19] VITALS (23 sets, daily range): BP systolic 96–128; BP diastolic 48–68; PULSE 78–98; RESP 14–20; TEMP 36.1–36.7; O2SAT 84–98; BMI 19.1
--- NOTE | 2022-07-19 00:29 | ADMGEN ---
This patient, Chandrika Welch, was admitted to [facility] Room 301-01. Patient/family oriented to hospital policies and general routines including ID bracelet, bed and alarms, visiting hours, pain management, procedures, bathroom and other care routines, personal items, smoking policy, room service/diet, and visiting hours. Information on how to activate the Rapid Response Team has been discussed. Patient/Family are encouraged to report perceived risks to care and to ask questions if they do not understand what they are told or what they should do.
[2022-07-19] MEDS: LEVALBUTEROL NEB 1.25 MG/3 ML 0.63 MG INHALATION ×4 (01:22→21:00)
[2022-07-19] MEDS: IPRATROPIUM BR 0.02% INH SOLN 0.5 MG/2.5 ML VIAL INHALATION ×4 (01:22→21:00)
[2022-07-19] MEDS: methylPREDNISolone SOD SUCC 125 MG VIAL 60 MG IV PUSH (06:18)
[2022-07-19 06:22] LABS: Hematocrit 32.6 % (37.0-47.0); Hemoglobin 10.3 g/dL (12.0-15.0); Mean Corpuscular HGB Conc 31.6 g/dl (32-36); Mean Corpuscular Hemoglobin 30.7 pg (26-34); Mean Platelet Volume 9.6 fl (7.4-10.4); Platelet Count Result 180 k/mm3 (150-375); Red Blood Count 3.36 M/mm3 (4.2-5.4); Red Cell Distribution Width 13.4 % (11.5-14.5); White Blood Count 4.7 K/mm3 (4.5-10.0)
[2022-07-19 06:29] LABS: Lactic Acid Reflex 1.5 mmol/L (0.7-2.0)
[2022-07-19 06:35] LABS: Alanine Aminotransferase 26 U/L (6-35); Albumin Level 3.5 g/dL (3.5-5.1); Alkaline Phosphatase 34 U/L (38-126); Anion Gap 5 mmol/L (8-16); Aspartate Amino Transferase 27 U/L (14-36); Bilirubin,Total 0.3 mg/dL (0.2-1.3); Blood Urea Nitrogen 22 mg/dL (7-17); Calcium 7.5 mg/dL (8.4-10.2); Carbon Dioxide 26 mmol/L (22-30); Chloride 104 mmol/L (98-107); Estimated CRCL calculation 72 ml/min; Estimated Glomerular Filt Rate > 60; Glucose 166 mg/dL (65-110); Potassium 4.1 mmol/L (3.4-5.0); Sodium 135 mmol/L (137-145)
[2022-07-19 07:17] LABS: Thyroid Stimulating Hormone Reflex 0.049 uIU/mL (0.465-4.68)
[2022-07-19 08:02] LABS: Band Neutrophils Percent 7 % (0-6); Lymphocytes Absolute Manual 0.23 K/mm3 (1.1-4.5); Monocytes Absolute Manual 0.04 K/mm3 (0.1-0.90); Monocytes Percent Manual 1 % (3-9); Neutrophils Absolute Manual 4.41 K/mm3 (1.7-7.2); Neutrophils Percent Manual 87 % (46-73); Platelet Estimate Adequate (Adequate); Schistocytes None Seen (NORMAL); Total Cells Counted 100
[2022-07-19] MEDS: FLUTICASONE/UMECLIDIN/VILANTER 100-62.5-25 MCG ELLIPTA 1 PUFF INHALATION (08:22)
[2022-07-19] MEDS: ACETAMINOPHEN 325 MG TABLET 650 MG PO ×3 (08:42→18:36)
[2022-07-19] MEDS: FOLIC ACID 1 MG TABLET PO (08:42)
[2022-07-19] MEDS: CHOLECALCIFEROL 1,000 UNITS TABLET 2000 UNITS PO (08:42)
[2022-07-19] MEDS: CYANOCOBALAMIN 1,000 MCG TABLET 1000 MCG PO (08:42)
[2022-07-19] MEDS: ROSUVASTATIN 10 MG TABLET PO (08:42)
--- NOTE | 2022-07-19 12:57 | PM.IMPN ---
Progress Note: A&P Assessment and Plan (1) Back pain: Qualifiers: Back pain location: back pain in other location Chronicity: unspecified Qualified Code(s): M54.89 - Other dorsalgia Code(s): M54.9 - Dorsalgia, unspecified Status: Acute Assessment and Plan: Patient presented to the ED due to acute back pain. Patient states that she has been having this pain for approximately 3 months. Had gotten worse approximately 5 days ago and had become unbearable. Patient describes the pain as runny across her shoulders. CT cervical spine revealing severe cervical spondylosis Neurosurgery consulted and appreciate recommendations Start cyclobenzaprine p.r.n. for muscle spasms (2) COPD exacerbation: Code(s): J44.1 - Chronic obstructive pulmonary disease with (acute) exacerbation Status: Acute Assessment and Plan: Patient presents to the ED for back pain. Patient did not have any shortness of breath upon presentation. She does have a history of COPD. She had been told in the past she is to be wearing home oxygen but she refuses. CTA chest showed severe emphysema and enlargement of the central pulmonary arteries consistent with pulmonary arterial hypertension. No acute cardiopulmonary disease. Continue with nebulizer treatment Continue with Solu-Medrol Continue with Trelegy (3) Hypoxia: Code(s): R09.02 - Hypoxemia Status: Acute Assessment and Plan: the patient does not usually wear oxygen at home when she is currently on 2 L per nasal cannula. (4) Nonrheumatic mitral valve insufficiency: Code(s): I34.0 - Nonrheumatic mitral (valve) insufficiency Status: Acute Assessment and Plan: Patient is being monitored outpatient. (5) Hyperlipidemia: Qualifiers: Hyperlipidemia type: unspecified Qualified Code(s): E78.5 - Hyperlipidemia, unspecified Code(s): E78.5 - Hyperlipidemia, unspecified Status: Acute Assessment and Plan: The patient is on rosuvastatin Subjective Date/time seen: 07/19/22 12:57 Interval history: Patient presented to the ED due to acute back pain. Patient states that she has been having this pain for approximately 3 months. Had gotten worse approximately 5 days ago and had become unbearable. Patient describes the pain as runny across her shoulders. She denies numbness and tingling down her arms or legs. She has been taking [id number] Advil in aspirin for her pain. She does have history of substance dependence and worries about taking too many addictive pain medications. Exam Narrative: GENERAL: Comfortable, no acute distress HENMT: moist mucous membranes EYES: EOM intact b/l NECK: no lymphadenopathy RESPIRATORY: clear to auscultation CARDIO: RRR GI: soft, nontender, bowel sounds present SKIN: no rashes EXTREMITIES: no edema, redness or tenderness MUSCULAR: Paraspinal tenderness from and thoracic and cervical area, no spinal tenderness Objective Data Vital Signs Vital Signs: Vital Signs - 24 hr 07/18/22 14:54 07/18/22 15:02 07/18/22 17:11 Temperature 98.7 F Pulse Rate 116 H 108 H Respiratory Rate 31 H Blood Pressure 127/67 Pulse Oximetry 94 99 Oxygen Delivery Room Air Nasal Cannula Oxygen Flow Rate 2 07/18/22 17:13 07/18/22 17:13 07/18/22 17:50 Temperature Pulse Rate 100 93 Respiratory Rate 18 18 Blood Pressure 105/61 Pulse Oximetry 99 99 Oxygen Delivery Nasal Cannula Oxygen Flow Rate 2 07/18/22 15:30 07/18/22 16:00 07/18/22 16:15 Temperature Pulse Rate 111 H 108 H 105 H Respiratory Rate 18 16 13 Blood Pressure 105/64 117/67 109/65 Pulse Oximetry 99 89 L 91 Oxygen Delivery Oxygen Flow Rate 07/18/22 16:30 07/18/22 17:15 07/18/22 17:46 Temperature Pulse Rate 100 99 94 Respiratory Rate 29 H 23 H 20 Blood Pressure 102/79 115/68 97/62 L Pulse Oximetry 83 L 97 99 Oxygen Delivery Oxygen F
[2022-07-19 13:00] LABS: Free T4 Free Thyroxine Reflex 0.91 ng/dL (0.78-2.19)
[2022-07-19] MEDS: CYCLOBENZAPRINE HCL 5 MG TABLET PO ×2 (13:21→20:54)
--- NOTE | 2022-07-19 16:06 | PCRCNOTE ---
HOME O2 EVAL DONE, PT REQUIRES 2 LITERS WITH ACTIVITY, ROOM AIR AT REST. PT REFUSES HOME O2 SET UP, STATES SHE WILL THINK ABOUT IT AND [facility] OFFICE HAS ALREADY BEEN TRYING TO GET HER TO WEAR IT, SHE WILL FOLLOW UP WITH THEM IF SHE DECIDES TO USE HOME O2. FORMAL HOME O2 EVAL IS CHARTED AND IS GOOD FOR 48 HOURS.
[2022-07-19 17:05] LABS: Total Triiodothyronine (T3) 0.79 NG/ML (0.97-1.69)
[2022-07-19] MEDS: HYDROcodone/acetaminophen (*CRX) 5-325 MG TABLET 1 TAB PO (20:58)
[2022-07-20] VITALS: BP 111/60; PULSE 111; RESP 14; TEMP 36.5; O2SAT 90
[2022-07-20 04:00] VITALS: BP 122/65; PULSE 88; RESP 14; TEMP 36.2; O2SAT 94
[2022-07-20] MEDS: CYCLOBENZAPRINE HCL 5 MG TABLET PO ×2 (05:55→14:27)
[2022-07-20 06:27] LABS: Basophils Percent Auto 0.4 % (0.2-1.2); Hematocrit 31.5 % (37.0-47.0); Immature Granulocyte Absolute 0.04 K/mm3 (0.00-0.031); Immature Granulocyte Percent A 0.5 % (0-0.5); Lymphocytes Absolute Auto 0.33 K/mm3 (0.9-3.2); Lymphocytes Percent Auto 4.1 % (18.3-44.2); Mean Corpuscular HGB Conc 31.7 g/dl (32-36); Mean Corpuscular Hemoglobin 31.4 pg (26-34); Mean Corpuscular Volume 99.1 fl (80-100); Mean Platelet Volume 9.8 fl (7.4-10.4); Monocytes Absolute Auto 1.1 K/mm3 (0.1-0.6); Monocytes Percent Auto 13.4 % (2.6-8.5); Neutrophils Absolute Auto 6.6 K/mm3 (1.3-6.7); Neutrophils Percent Auto 81.6 % (45.5-73.1); Platelet Count Result 200 k/mm3 (150-375); Red Blood Count 3.18 M/mm3 (4.2-5.4); Red Cell Distribution Width 13.7 % (11.5-14.5); White Blood Count 8.1 K/mm3 (4.5-10.0)
[2022-07-20 06:38] LABS: Alanine Aminotransferase 25 U/L (6-35); Albumin Level 3.6 g/dL (3.5-5.1); Alkaline Phosphatase 38 U/L (38-126); Anion Gap 5 mmol/L (8-16); Aspartate Amino Transferase 28 U/L (14-36); Bilirubin,Total 0.2 mg/dL (0.2-1.3); Blood Urea Nitrogen 18 mg/dL (7-17); Calcium 8.1 mg/dL (8.4-10.2); Carbon Dioxide 27 mmol/L (22-30); Chloride 106 mmol/L (98-107); Estimated CRCL calculation 72 ml/min; Estimated Glomerular Filt Rate > 60; Glucose 121 mg/dL (65-110); Potassium 4.5 mmol/L (3.4-5.0); Sodium 138 mmol/L (137-145)
[2022-07-20 06:56] LABS: Platelet Estimate Adequate (Adequate); Poikilocytosis 1+ (NORMAL); Schistocytes None Seen (NORMAL)
[2022-07-20 08:00] VITALS: BP 144/90; PULSE 86; RESP 24; TEMP 36.3; O2SAT 93
[2022-07-20 08:20] VITALS: O2SAT 96
[2022-07-20] MEDS: predniSONE 20 MG TABLET 40 MG PO (08:21)
[2022-07-20] MEDS: ROSUVASTATIN 10 MG TABLET PO (08:21)
[2022-07-20] MEDS: CHOLECALCIFEROL 1,000 UNITS TABLET 2000 UNITS PO (08:21)
[2022-07-20] MEDS: CYANOCOBALAMIN 1,000 MCG TABLET 1000 MCG PO (08:22)
[2022-07-20] MEDS: FOLIC ACID 1 MG TABLET PO (08:22)
[2022-07-20] MEDS: FLUTICASONE/UMECLIDIN/VILANTER 100-62.5-25 MCG ELLIPTA 1 PUFF INHALATION (09:02)
--- NOTE | 2022-07-20 10:05 | PM.IMPN ---
Progress Note: A&P Assessment and Plan (1) Back pain: Qualifiers: Back pain location: back pain in other location Chronicity: unspecified Qualified Code(s): M54.89 - Other dorsalgia Code(s): M54.9 - Dorsalgia, unspecified Status: Acute Assessment and Plan: Patient presented to the ED due to acute back pain. Patient states that she has been having this pain for approximately 3 months. Had gotten worse approximately 5 days ago and had become unbearable. Patient describes the pain as runny across her shoulders. CT cervical spine revealing severe cervical spondylosis Neurosurgery consulted and appreciate recommendations Start cyclobenzaprine p.r.n. for muscle spasms (2) COPD exacerbation: Code(s): J44.1 - Chronic obstructive pulmonary disease with (acute) exacerbation Status: Acute Assessment and Plan: Patient presents to the ED for back pain. Patient did not have any shortness of breath upon presentation. She does have a history of COPD. She had been told in the past she is to be wearing home oxygen but she refuses. CTA chest showed severe emphysema and enlargement of the central pulmonary arteries consistent with pulmonary arterial hypertension. No acute cardiopulmonary disease. Continue with nebulizer treatment Continue with Solu-Medrol Continue with Trelegy (3) Hypoxia: Code(s): R09.02 - Hypoxemia Status: Acute Assessment and Plan: the patient does not usually wear oxygen at home when she is currently on 2 L per nasal cannula. (4) Nonrheumatic mitral valve insufficiency: Code(s): I34.0 - Nonrheumatic mitral (valve) insufficiency Status: Acute Assessment and Plan: Patient is being monitored outpatient. (5) Hyperlipidemia: Qualifiers: Hyperlipidemia type: unspecified Qualified Code(s): E78.5 - Hyperlipidemia, unspecified Code(s): E78.5 - Hyperlipidemia, unspecified Status: Acute Assessment and Plan: The patient is on rosuvastatin Subjective Date/time seen: 07/20/22 10:05 Exam Narrative: General: No acute distress.? Mental Status/Psych: Awake, alert and oriented x4 with clear speech. Pleasant and cooperative. Skin: Skin fair, warm, dry and intact without rashes or lesions. No open wounds. Good turgor.? HEENT: Normocephalic. Sclera is non-icteric. Pupils equal and round. Oral mucosa pink and moist. Neck: No JVD. Heart: S1 and S2 regular rate and rhythm. No murmurs, gallops, or rubs auscultated. Chest: Respirations even and unlabored. Lung sounds are clear to auscultation without wheezes, rhonchi, or rales. Abdomen: Soft, obese and non-tender to palpation.? Bowel sounds present in all 4 quadrants. No guarding. Extremities:? No edema, erythema or calf tenderness. Point tenderness right knee with palpation. No effusion. Grossly normal ROM. Neurological: No focal deficits. Sensation intact all extremities ? Objective Data Vital Signs Vital Signs: Vital Signs - 24 hr 07/19/22 13:41 07/19/22 14:13 07/19/22 14:24 Temperature 97.6 F Pulse Rate 96 90 94 Respiratory Rate 20 18 18 Blood Pressure 128/68 Pulse Oximetry 94 Oxygen Delivery Oxygen Flow Rate Fraction of Inspired Oxygen 07/19/22 15:00 07/19/22 15:05 07/19/22 15:06 Temperature Pulse Rate Respiratory Rate Blood Pressure Pulse Oximetry 94 84 L 86 L Oxygen Delivery Room Air Room Air Nasal Cannula Oxygen Flow Rate 1 Fraction of Inspired Oxygen 07/19/22 15:07 07/19/22 15:15 07/19/22 20:00 Temperature 97.2 F L Pulse Rate 94 Respiratory Rate 14 Blood Pressure 110/57 L Pulse Oximetry 90 95 92 Oxygen Delivery Nasal Cannula Room Air Oxygen Flow Rate 2 Fraction of Inspired Oxygen 07/19/22 21:00 07/19/22 21:21 07/19/22 21:10 Temperature Pulse Rate 98 98 95 Respiratory Rate 18 18 Blood Pressure Pulse Oximetry 93 Oxygen Delivery Room
[2022-07-20 12:00] VITALS: BP 132/68; PULSE 91; RESP 24; TEMP 36.7; O2SAT 92
--- NOTE | 2022-07-20 12:04 | WPDNEUROSGCN ---
Assessment and Plan Assessment and plan (1) Back pain: Qualifiers: Back pain location: back pain in other location Chronicity: unspecified Qualified Code(s): M54.89 - Other dorsalgia Code(s): M54.9 - Dorsalgia, unspecified Status: Acute (2) Rheumatoid arthritis: Qualifiers: Rheumatoid arthritis location: multiple sites Rheumatoid factor presence: with rheumatoid factor Qualified Code(s): M05.79 - Rheumatoid arthritis with rheumatoid factor of multiple sites without organ or systems involvement Code(s): M06.9 - Rheumatoid arthritis, unspecified Status: Acute Plan HPI: Chandrika Welch is a 72 year old female with history of RA, pulmonary HTN, COPD who presented to the ER two days ago with upper back pain and a low-grade fever. The patient states she has been having pain across the upper part of her back across her shoulders, worse on the right, for the last year or so. It is intermittent and frequently brought on while sitting at her computer. She notices that she generally has poor posture when at the computer and hunches over to see the screen. Typically, when she tries to sit up straight, her pain will improve. This past Monday, however, her pain was getting quite severe and not being relieved with OTC pain medications. She also measured a 100.5F temperature at home. She was concerned she had COVID or pneumonia which prompted her to seek medical attention. She will rarely get pain into the upper part of her right arm, but she otherwise denies radicular pain, paresthesias, weakness, or difficulty with ambulation. She reports urinary urgency and frequency since being admitted to the hospital. She has not had any conservative treatments for her back pain. Today, her pain is significantly better than when she initially presented to the hospital. Assessment: Ms. Welch is a 72-year-old female with history of RA, COPD who presents with acute on chronic upper thoracic pain without evidence of radiculopathy or myelopathy. She is neurologically intact on physical exam. Imaging of the cervical spine shows spondylosis without stenosis, spondylolisthesis, or fracture. Her pain is significantly improved since admission. Her symptoms sound to be related to her posture when sitting in front of her computer. I would recommend that she participate in a course of physical therapy as an outpatient to work on improving her posture and muscle strength. If she continues to have pain after 6 weeks of PT, she could see a pain management physician. I would not recommend any surgical intervention. Plan: -Recommend outpatient physical therapy followed by Pain Management if PT is not effective -No surgical intervention recommended at this time. Consult date: 07/20/22 HPI: Chandrika Welch is a 72 year old female with history of RA, pulmonary HTN, COPD who presented to the ER two days ago with upper back pain and a low-grade fever. The patient states she has been having pain across the upper part of her back across her shoulders, worse on the right, for the last year or so. It is intermittent and frequently brought on while sitting at her computer. She notices that she generally has poor posture when at the computer and hunches over to see the screen. Typically, when she tries to sit up straight, her pain will improve. This past Monday, however, her pain was getting quite severe and not being relieved with OTC pain medications. She also measured a 100.5F temperature at home. She was concerned she had COVID or pneumonia which prompted her to seek medical attention. She will rarely get pain into the upper part of her right arm, but she otherwise denies radicular pain, paresthesias, weakness, or difficulty with ambulation. She reports urinary urgency and frequency since being admitted to the hospital. She has not had any conservative treatments for her back pain. Today, her pain is significantly better than when she initially presented to
[2022-07-20 14:00] VITALS: BP 132/68; PULSE 91; RESP 24; TEMP 36.7; O2SAT 92
--- NOTE | 2022-07-20 16:13 | PM.DS ---
DS: Admitting Diagnosis Discharge Date 07/20/2022 Admitting Diagnosis Chronic obstructive pulmonary disease with (acute) exacerbation Hypoxemia DS: Discharge Diagnosis Discharge Diagnosis (1) Back pain: Qualifiers: Back pain location: back pain in other location Chronicity: unspecified Qualified Code(s): M54.89 - Other dorsalgia Code(s): M54.9 - Dorsalgia, unspecified Status: Acute Assessment and Plan: Patient presented to the ED due to acute back pain. Patient states that she has been having this pain for approximately 3 months. It had gotten worse approximately 5 days prior to admission and became unbearable. Patient described the pain as running across her shoulders . CT cervical spine revealed severe cervical spondylosis with mild central canal stenosis. Neurosurgery consulted and no surgical intervention at this time. Recommended outpatient physical therapy and pain management if pain is not improved with therapy. Started cyclobenzaprine p.r.n. for muscle spasms with some improvement. (2) COPD exacerbation: Code(s): J44.1 - Chronic obstructive pulmonary disease with (acute) exacerbation Status: Acute Assessment and Plan: Patient presented to the ED for back pain. Patient did not have any shortness of breath upon presentation reportedly. She has a history of COPD. She had been told in the past she should wear home oxygen but she refuses at this time. She endorse her father had oxygen for similar lung issues and she feels wearing oxygen would limit her mobility and activity. CTA chest showed severe emphysema and enlargement of the central pulmonary arteries consistent with pulmonary arterial hypertension. No acute cardiopulmonary disease. Treated initially with scheduled nebulizer treatment Started on IV Solu-Medrol and weaned to oral prednisone 40 mg PO daily x5 days, patient discharged with 4 more days oral prednisone. Continued Trelegy at discharge. Patient counseled extensively on need for oxygen for improvement oxygenation and lung health. She verbalized understanding, but did not want to initiate at this time. (3) Hypoxia: Code(s): R09.02 - Hypoxemia Status: Chronic Assessment and Plan: the patient does not usually wear oxygen at home and requiring 2 L per nasal cannula. As above, this is a chronic issue and patient is not willing to initate oxygen at this time. (4) Nonrheumatic mitral valve insufficiency: Code(s): I34.0 - Nonrheumatic mitral (valve) insufficiency Status: Chronic Assessment and Plan: Patient is being monitored outpatient. To be aware. No complications identified. (5) Hyperlipidemia: Qualifiers: Hyperlipidemia type: unspecified Qualified Code(s): E78.5 - Hyperlipidemia, unspecified Code(s): E78.5 - Hyperlipidemia, unspecified Status: Chronic Assessment and Plan: Chronic, continue rosuvastatin DS: Summary Hospital Course Reason for hospitalization: Shortness of breath Hospital Course: Patient is a 72-year-old female patient with COPD and hyperlipidemia.? The patient reportedly presented to the ED for evaluation of shortness of breath starting the morning of admission. Upon further assessment she endorsed upper back/neck pain as chief complaint. The patient reported coughing episodes.? Her back pain was lower and middle back pain more notable between her shoulders.? She had mild pain with deep inspiration.? She also had some generalized?myalgias and malaise.? She reported that she had a temperature as high as 100.5?.? She had associated nauseated without emesis.? She denied no known sick contacts.? She reported presence of dysuria over the last week.? Influenza A/B and COVID were negative? Chest x-ray showed emphysema with blunting in the posterior sulci which could be due to the emphysema or very small pleural effusions.? CTA chest suggested
== END 2022-07-20 16:45 | disposition home or self-care (01) ==
LOC: ANHED 15:10 → ANH3MEDSUR 20:36
PROVIDERS: Internal Medicine Critical Care Medicine; Nurse Practitioner; Admitting Provider Internal Medicine; Emergency Provider Emergency Medicine; PCP Internal Medicine; Visit Provider Student in an Organized Health Care Education/Training Program
DX: M54.89 Other dorsalgia (principal); J44.1 Chronic obstructive pulmonary disease with (acute) exacerbation; R09.02 Hypoxemia; I34.0 Nonrheumatic mitral (valve) insufficiency; E78.5 Hyperlipidemia, unspecified; M15.9 Polyosteoarthritis, unspecified; Z20.822 Contact with and (suspected) exposure to COVID-19; M47.812 Spondylosis without myelopathy or radiculopathy, cervical region; R30.0 Dysuria; K80.20 Calculus of gallbladder without cholecystitis without obstruction; R50.9 Fever, unspecified; G43.909 Migraine, unspecified, not intractable, without status migrainosus; M05.79 Rheumatoid arthritis with rheumatoid factor of multiple sites without organ or systems involvement; E55.9 Vitamin D deficiency, unspecified; Z86.16 Personal history of COVID-19; R94.31 Abnormal electrocardiogram [ECG] [EKG]; F10.90 Alcohol use, unspecified, uncomplicated; Z87.891 Personal history of nicotine dependence; Z79.51 Long term (current) use of inhaled steroids; Z79.82 Long term (current) use of aspirin; Z79.899 Other long term (current) drug therapy
CPT/HCPCS: 36415; 71046; 71275; 72125; 80053; 81001; 83605; 83735; 84439; 84443; 84480; 85025; 87636; 93005; 94618; 94640; 96361; 96374; 96375; 96376; 99285; A9270; G0378; J1885; J2270; J2930; J7030; J7512; Q9967

== ENCOUNTER 2022-08-20 22:45 | Emergency (ER) | payer MEDICARE, SELFPAY ==
--- NOTE | ~2022-08-20 | XR_ITS ---
EXAMINATION: XR chest 2V DATE: 08/21/2022 01:27 INDICATION: Productive cough TECHNIQUE: PA and lateral views of the chest are obtained. COMPARISON: 07/18/2022 FINDINGS: The lungs are free of acute opacities. No pleural effusion or pneumothorax. The cardiomedia stinal silhouette is normal. There is moderate thoracic spondylosis. IMPRESSION: 1. No acute cardiopulmonary abnormality. Reviewed, dictated and finalized at location A.
[2022-08-20 22:47] VITALS: BP 134/70; PULSE 95; RESP 16; TEMP 36.8; O2SAT 93
[2022-08-21 00:48] VITALS: O2SAT 93
[2022-08-21 00:51] VITALS: BP 148/85; PULSE 83; RESP 19; O2SAT 93
[2022-08-21 01:33] LABS: Basophils Percent Auto 0.2 % (0.2-1.2); Eosinophils Percent Auto 0.5 % (0-4.4); Hematocrit 36.8 % (37.0-47.0); Immature Granulocyte Absolute 0.03 K/mm3 (0.00-0.031); Immature Granulocyte Percent A 0.5 % (0-0.5); Lymphocytes Absolute Auto 0.32 K/mm3 (0.9-3.2); Lymphocytes Percent Auto 4.9 % (18.3-44.2); Mean Corpuscular HGB Conc 32.6 g/dl (32-36); Mean Corpuscular Volume 95.1 fl (80-100); Mean Platelet Volume 9.1 fl (7.4-10.4); Monocytes Absolute Auto 1.2 K/mm3 (0.1-0.6); Monocytes Percent Auto 17.5 % (2.6-8.5); Neutrophils Percent Auto 76.4 % (45.5-73.1); Platelet Count Result 244 k/mm3 (150-375); Red Blood Count 3.87 M/mm3 (4.2-5.4); Red Cell Distribution Width 13.6 % (11.5-14.5); White Blood Count 6.6 K/mm3 (4.5-10.0)
[2022-08-21] MEDS: methylPREDNISolone SOD SUCC 125 MG VIAL IV PUSH (01:37)
[2022-08-21 01:44] LABS: Anion Gap 5 mmol/L (8-16); Blood Urea Nitrogen 18 mg/dL (7-17); Calcium 8.7 mg/dL (8.4-10.2); Carbon Dioxide 29 mmol/L (22-30); Chloride 99 mmol/L (98-107); Estimated CRCL calculation 53 ml/min; Estimated Glomerular Filt Rate > 60; Glucose 111 mg/dL (65-110); Sodium 133 mmol/L (137-145)
--- NOTE | 2022-08-21 01:59 | ED.URI ---
HPI - URI/Sore Throat General Chief Complaint: Upper Respiratory Infection <Mary Grace Jose PA-C - Last Filed: 08/21/22 03:08> Stated Complaint: cough <ARNOLD Anguiano Last Filed: 08/21/22 03:08> Time Seen by Provider: 08/21/22 00:54 <ARNOLD Anguiano Last Filed: 08/21/22 03:08> Source: patient <ARNOLD Anguiano Last Filed: 08/21/22 03:08> Mode of arrival: ambulatory <ARNOLD Anguiano Last Filed: 08/21/22 03:08> Limitations: no limitations <ARNOLD Anguiano Last Filed: 08/21/22 03:08> History of Present Illness HPI Narrative: This is a 72 year old female that presents to the ER for cold symptoms present over the last 4 days. Reports sore throat, cough, and fever. Her PCP prescribed her an antibiotic for her symptoms. Reports history of COPD. Reports her oxygen saturations have been normal. She has been experiencing coughing fits and tonight during 1 felt as though she was choking which prompted her to be seen. Does report a productive cough. Denies chest pain or current shortness of breath. <ARNOLD Anguiano Last Filed: 08/21/22 03:08> Related Data Home Medications: Home Medications Medication Instructions Recorded Confirmed cholecalciferol (vitamin D3) 50 2,000 unit PO DAILY 01/07/19 08/05/22 mcg (2,000 unit) tablet folic acid 1 mg tablet 1 mg PO DAILY 01/07/19 08/05/22 mecobalamin (vitamin B12) 1,000 1,000 mcg sublingual DAILY 11/21/19 08/05/22 mcg disintegrating tablet,sublingual Rinvoq 15 mg PO DAILY 05/29/20 08/05/22 alendronate 70 mg tablet 70 mg PO WEEKLY 07/18/22 08/05/22 aspirin 325 mg tablet 325 mg PO Q4H PRN Migraine Headache 07/18/22 08/05/22 fluticasone fur. 100 mcg-umeclid 1 inh inhalation DAILY 07/18/22 08/05/22 62.5 mcg-vilant 25 mcg inhalat.powder (Trelegy Ellipta) rosuvastatin 10 mg tablet 10 mg PO DAILY 07/18/22 08/05/22 <Mary Grace Jose PA-C - Last Filed: 08/21/22 03:08> Allergies/Adverse Reactions: Allergies Allergy/AdvReac Type Severity Reaction Status Date / Time No Known Allergies Allergy Verified 08/05/22 11:15 <Mary Grace Jose PA-C - Last Filed: 08/21/22 03:08> Review of Systems Review of Systems: CONSTITUTIONAL: Reports fever ENT: Reports congestion, sore throat CARDIOVASCULAR: Denies chest pain, or edema. RESPIRATORY: Reports cough. Denies current dyspnea. <Mary Grace Jose PA-C - Last Filed: 08/21/22 03:08> All systems reviewed & are unremarkable except as noted in HPI and below <Mary Grace Jose PA-C - Last Filed: 08/21/22 03:08> ON LICENSE OF [facility] Past Medical History Medical History: Medical History Abnormal finding of blood chemistry, unspecified Adult BMI <19 kg/sq m Cervicalgia Chronic mitral valve regurgitation Chronic obstructive pulmonary disease Colon cancer screening COPD (chronic obstructive pulmonary disease) DJD (degenerative joint disease), multiple sites Elevated coronary artery calcium score Elevated homocysteine Encounter for Medicare annual wellness exam Encounter for routine adult health examination without abnormal findings Encounter for screening mammogram for malignant neoplasm of breast Follow up Hematuria History of colonic polyps Hyperlipidemia Left knee pain Migraines Mitral valve regurgitation MVP (mitral valve prolapse) Need for COVID-19 vaccine On fpc drug therapy Personal history of COVID-19 Post menopausal problems Radicular pain of shoulder Resting tremor Rheumatoid arthritis Sinus drainage Sprain of left foot Trigger finger of both hands Vitamin D deficiency <Mary Grace Jose PA-C - Last Filed: 08/21/22 03:08> Surgical History Surgical History: Surgical History H/O colonoscopy with polypectomy History of lymph node excision Hx of breast surgery 1974 Hx of tubal ligation 1972 S/P tonsillecto
[2022-08-21 02:06] VITALS: PULSE 80; RESP 18
[2022-08-21] MEDS: IPRATROPIUM BR 0.02% INH SOLN 0.5 MG/2.5 ML VIAL INHALATION (02:07)
[2022-08-21] MEDS: ALBUTEROL SULFATE NEB 2.5 MG/3 ML INH INHALATION (02:07)
[2022-08-21 02:11] LABS: Influenza A QL RT-PCR Negative (Negative); Influenza B QL RT-PCR Negative (Negative); SARS-CoV-2 RNA PCR Negative (Negative)
[2022-08-21 02:21] VITALS: PULSE 76
[2022-08-21 03:57] VITALS: BP 126/72; PULSE 96; RESP 19; O2SAT 96
[2022-08-21 04:22] VITALS: BP 131/65; PULSE 90; RESP 20; O2SAT 96
== END 2022-08-21 04:49 | disposition home or self-care (01) ==
PROVIDERS: Emergency Provider Physician Assistant; PCP Internal Medicine
DX: J44.1 Chronic obstructive pulmonary disease with (acute) exacerbation (principal); I34.0 Nonrheumatic mitral (valve) insufficiency; E78.5 Hyperlipidemia, unspecified; I34.1 Nonrheumatic mitral (valve) prolapse; M06.9 Rheumatoid arthritis, unspecified; E55.9 Vitamin D deficiency, unspecified; Z86.16 Personal history of COVID-19; Z86.010 Personal history of colon polyps; Z87.891 Personal history of nicotine dependence; Z79.82 Long term (current) use of aspirin
CPT/HCPCS: 36415; 71046; 80048; 85025; 87636; 94640; 96374; 99284; J2930

== ENCOUNTER 2024-09-24 14:38 | Outpatient (CLI) | payer OTHER, SELFPAY ==
--- NOTE | ~2024-09-24 | CT_ITS ---
EXAMINATION: CT sinus wo con DATE: 09/24/2024 15:03 INDICATION: Cough TECHNIQUE: Computed tomography (CT) of the paranasal sinuses was performed without intravenous contra st. The dose-length product was 295.93 mGy-cm. Automated exposure control and iterative reconstructio n technique were employed. COMPARISON: None FINDINGS: There is mild mucosal thickening of the ethmoid sinuses. No air-fluid levels. Remainder of the sinuses are unremarkable. Rightward nasal septal deviation. No mucoperiosteal reaction. There is intracranial atherosclerosis. Mastoids are pneumatized. IMPRESSION: 1. Mild eighth white sinuses disease. Reviewed, dictated and finalized at location A.
--- NOTE | ~2024-09-24 | CT_ITS ---
CT Scan of the Chest without Contrast: Clinical Indication: Lung cancer screening, nicotine dependence Technique: Contiguous sections were acquired throughout the chest without intravenous contrast. Dose reduction technique was used on this scan by utilizing automated exposure control and iterative recon struction technique. The dose-length product (DLP) was 56.73 mGy-cm. Findings: There is no evidence of any significant mediastinal, hilar or axillary lymphadenopathy. The mediastin al soft tissues appear normal. Minimal pericardial effusion. No pleural effusions. The lungs are clear. No pulmonary nodules or infiltrates are noted. Severe emphysema noted. Images through the upper abdomen reveal small calcified gallstones. Impression: Lung RADS 1: Negative. 12 month follow-up screening CT advised. Severe emphysema. Reviewed, dictated and finalized at [facility]. Impression: Lung RADS 1: Negative. 12 month follow-up screening CT advised. Severe emphysema.
--- OUTSIDE RECORDS SUMMARY | 2024-09-24 14:44 | XMS_ITS | Clinical Summary ---
Author Organization [facility] Address [address] [place] [address] Care Team Providers Care Animal Trainer Supervisor Name Role Phone Chilo Shah MD Primary Care Provider [phone] Source Comments [facility],non-owned Affiliates and Associated Physician Practices is amultiple site organization consisting of ambulatory clinics and hospital sitesin [place], [place], [place] and [place]. This disclosure is being madepursuant to the Care Everywhere program and may not contain all information available regarding this patient. Last updated 17.[facility] Medications * Be aware that medications may not be up to date on this document. Alwaysverify current medications with the patient. PROAIR HFA 108 (90 BASE) MCG/ACT inhaler INHALE 2 PUFFS EVERY 6 HOURS NEEDED FOR WHEEZING 8.5 g 06/21/2017 Active Social History Tobacco Use Types Packs/Day Years Used Date Smoking Tobacco: Never Assessed Comments Unknown Sex and Gender Information Value Date Recorded Sex Assigned at Not on file Legal Sex Female 10:15 AM CDT Gender Identity Not on file Sexual Orientation Not on file Last Filed Vital Signs Vital Sign Reading Time Taken Comments Blood Pressure 126/78 05/17/2016 8:15 AM CDT Pulse 93 05/17/2016 8:15 AM CDT Temperature 36.9 C (98.5 F) 05/17/2016 8:15 AM CDT Respiratory Rate 18 05/17/2016 8:15 AM CDT Oxygen Saturation 92% 05/17/2016 8:15 AM CDT Inhaled Oxygen Concentration - - Weight 56.2 kg (124 lb) 05/17/2016 8:15 AM CDT Height 170.2 cm (5' 7) 05/17/2016 8:15 AM CDT Body Mass Index 19.42 05/17/2016 8:15 AM CDT Plan of Treatment Health Maintenance Due Date Last Done Comments MEDICARE AWV 12 MONTHS 1950 DTAP/TDAP/TD VACCINES (1 - Tdap) 01/14/1967 PNEUMOCOCCAL VACCINE 50+ (1 of 1 - PCV) 01/14/1998 ZOSTER VACCINE (1 of 2) 01/14/1998 Respiratory Syncytial Virus (RSV) Vaccine Pt: or over 60 yrs (1 - 1-dose 75+ series) 01/14/2023 COVID-19 VACCINE (1 - 2023-2 5 season) 2023 DEPRESSION SCREENING 02/21/2024 INFLUENZA VACCINE (#1) 2024 5, 12/03/2013 HEPATITIS C SCREENING Completed 07/15/2014 BONE DENSITY TESTING Completed 02/01/2016, 01/07/2015 HEPATITIS B VACCINE Aged Out No longe r eligible based on patient's age to complete this topic HIB VACCINE Aged Out No longer eligi ble based on patient's age to complete this topic HPV VACCINE Aged Out No longer eligi ble based on patient's age to complete this topic MENINGOCOCCAL (Group B) VACCINE SHARED DECISION-MAKING Aged Out No longer eligible based on patient's age to complete this topic MENINGOCOCCAL GROUPS A/C/Y/W VACCINE Aged Out No longer eligible b ased on patient's age to complete this topic Procedures Procedure Name Priority Date/Time Associated Diagnosis Comments DEXA BONE DENSITY AXIAL SKELETON Routine 02/01/2016 9:00 AM SOFTWARE QUALITY MANAGER HEPATITIS SCREEN ACUTE Routine 07/15/2014 10:18 AM CDT from Last 3 Months or Most Recently Relevant to Health Maintenance Results * DEXA BONE DENSITY AXIAL SKELETON (02/01/2016 9:00 AM SOFTWARE QUALITY MANAGER) Anatomical Region Laterality Modality Other Narrative 02/02/2016 8:41 AM SOFTWARE QUALITY MANAGER Examination: Dual energy x-ray absorptiometry of the lumbar spine and hip. Clinical Indication: 66-year-old female with prolonged steroid use screening for osteoporosis Findings: Detailed data from the exam is sent separately to the ordering physician and is also available on [employer], the Radiology Department's computerized picture archive system SUMMARY: Comparison made with prior study dated 01/07/2015 BONE MINERAL DENSITY (BMD) lumbar spine (L1-4): Osteoporosis; T-score -2.8, previously -2.9. BONE MINERAL DENSITY (BMD) left femoral neck: Osteoporosis; T-score -2.6, previously -2.6. FRAX 10 year fracture risk Not calculated because patient T scores are below -2.5. Definitions: T-score = Standard Deviation Normal: A value for bone mineral density(BMD) within 1 standard deviation of the young adult reference mean. (T-score above -1) Low bone mass(osteopenia): A value for bone mineral density(BMD) more than 1 standard deviation below the young adult mean, but less than 2.5 standard deviations below the young adult mean. ( T-score between -1 and -2.5) Osteoporosis: A value for bone mineral density 2.5 standard deviations or more below the young adult mean. ( T-score at or below -2.5) Severe osteoporosis: Osteoporosis + the presence of one or more fragility fractures. Please note that T-score values are important in determining increased risk for fractures. The T-score represents the standard deviation above or below the mean bone mineral density for young adults. With each -1 standard deviation decrease in bone mineral density, the risk for fracture doubles exponentially. A T-score of -1 will double the risk , and -2 will be 4 times the risk. As a rule of thumb, a T-score of -1 to -2.5 indicates increasing degrees of osteopenia. This report was approved by Nate Taylor M.D. on 02/01/2016 9:18 AM . IDr. JOVANNI D.O. have personally reviewed and interpreted this examination/study. This report was electronically signed by JOVANNI CLAYTON D.O. on 02/02/2016 8:41 AM . Procedure Note Jovanni Clayton, DO - 05/20/2017 Examination: Dual energy x-ray absorptiometry of the lumbar spine andhip. Clinical Indication: 66-year-old female with prolonged steroid usescreening for osteoporosis Findings: Detailed data from the exam is sent separately to the orderingphysician and is also available on [employer], the Radiology Department'[employer] picture archive system SUMMARY: Comparison made with prior study dated 01/07/2015 BONE MINERAL DENSITY (BMD) lumbar spine (L1-4): Osteoporosis; T-score -2.8, previously -2.9. BONE MINERAL DENSITY (BMD) left femoral neck: Osteoporosis; T-score -2.6, previously -2.6. FRAX 10 year fracture risk Not calculated because patient T scores are below -2.5. Definitions: T-score = Standard Deviation Normal: A value for bone mineral density(BMD) within 1 standard deviationof the young adult reference mean. (T-score above -1) Low bone mass(osteopenia): A value for bone mineral density(BMD) more than1 standard deviation below the young adult mean, but less than 2.5standard deviations below the young adult mean. ( T-score between -1 and-2.5) Osteoporosis: A value for bone mineral density 2.5 standard deviations ormore below the young adult mean. ( T-score at or below -2.5) Severe osteoporosis: Osteoporosis + the presence of one or more fragilityfractures. Please note that T-score values are important in determining increasedrisk for fractures. The T-score represents the standard deviation above orbelow the mean bone mineral density for young adults. With each -1standard deviation decrease in bone mineral density, the risk for fracture doubles exponentially. A T-score of-1 will double the risk , and -2 will be 4 times the risk. As a rule ofthumb, a T-score of -1 to -2.5 indicates increasing degrees ofosteopenia. This report was approved by Nate Taylor M.D. on 02/01/2016 9:18AM . IDr. JOVANNI D.O. have personally reviewed and interpreted thisexamination/study. This report was electronically signed by JOVANNI CLAYTON D.O. on02/02/2016 8:41 AM . Ester Starkey MD DEXA ORDERABLES Final R esult * HEPATITIS SCREEN ACUTE (07/15/2014 10:18 AM CDT) Hepatitis A Virus Antibody IgM Non-react [facility] Hepatitis B Virus Surface Antigen Non-react [facility] Hepatitis B Core Virus Antibody IgM Non-react [facility] Hepatitis C Antibody Non-react [facility] Comment: Hepatitis C Antibody screen indicates no serologic evidence of past or current infection with Hepatitis C Virus. Patients with unexplained liver disease who are immunocompromised or suspected of having acute Hepatitis C infection may benefit from Nucleic Acid Test (ANGELY) for Hepatitis C Viral RNA to confirm Hepatitis C status. Blood specimen (specimen) BLOOD SPECIMEN / Unknown 07/15/2014 10:18 AM CDT 07/15/2014 10:49 AM CDT Radha Bernardo MD LAB - CHEMISTRY OR DERABLES Final Result [address] [phone] from Last 3 Months or Most Recently Relevant to Health Maintenance [place] [place] [address] MEDICARE FORMERLY [facility] Care Teams Animal Trainer Supervisor Relationship Specialty Start Date End Date Chilo Shah MD [address] [place] [address] PCP - General 06/20/17
--- OUTSIDE RECORDS SUMMARY | 2024-09-24 14:44 | XMS_ITS | Clinical Summary ---
Author Organization [facility] Address [address] [place] [address] Care Team Providers Care Psychology Assistant Name Role Phone Adrian Trandichasity Tracey Primary Care Provider [phone] Allergies No known active allergies Medications Upadacitinib ER (RINVOQ) 15 MG TABLET SR 24 HR Take 15 mg by mouth daily. Active rosuvastatin (CRESTOR) 10 MG tabletIndications:H yperlipidemia, unspecified hyperlipidemia type Take 1 tablet (10 mg total) by mouth daily. 90 tablet 3 4 Active albuterol sulfate HFA 108 (90 Base) MCG/ACT inhalerIndications: Chronic cough,Pulmonary emphysema, unspecified emphysema type (CMS/HCC HHS/HCC) Inhale 2 puffs into the lungs every 6 (six) hours as needed for Wheezing. 18 g 3 4 Active Aspirin 325 MG Cap A ctive alendronate (FOSAMAX) 70 MG tabletIndications:A ge-related osteoporosis without current pathological fracture Take 1 tablet (70 mg total) by mouth every 7 days. 12 tablet 1 4 Active primidone (MYSOLINE) 50 MG tablet Take 0.5 tablets (25 mg total) by mouth nightly at bedtime. 4 Active metoprolol succinate ER (TOPROL XL) 12.5 mg TABLET SR 24 HR 24 hr tabletIndications:T achycardia Take 1 split tab (12.5 mg total) by mouth daily. 90 tablet 3 4 11/03/19 25 Active TRELEGY ELLIPTA 100-62.5-25 MCG/ACT AEROSOL POWDER, BREATH ACTIVATEDIndication s:Chronic cough take 1 puff by mouth every day 120 each 4 Active Active Problems Problem Noted Date Diagnosed Date Urinary incontinence, unspecified type 4 Parkinson's disease 05/26/2023 Emphysema of lung ([facility]) 03/31/2023 Tremor 03/31/2023 Hyperlipidemia 08/25/2018 Osteoporosis 11/30/2017 Overview (03/31/2023): Last Assessment & Plan: Last DEXA 2016 - BONE MINERAL DENSITY (BMD) lumbar spine (L1-4): Osteoporosis; T-score -2.8, previously -2.9. BONE MINERAL DENSITY (BMD) left femoral neck: Osteoporosis; T-score -2.6, previously -2.6. Discussed need for repeat DEXA and for osteoporosis treatment. Has previously declined noting adverse effect to Fosamax, after reviewing the implications of steroid use on osteoporosis and the need to limit steroids, she indicates that she will consider initiating treatment but not until next year. Indicates that she would prefer oral medication to injectable due to concern for lingering side effects. Rheumatoid arthritis involvi ng multiple sites with positive rheumatoid factor ([facility]) 08/02/2016 Overview (03/31/2023): Positive RF and anti-ccp abs with erosive changes in hands per xrays. US L hand revealed marked synovitis and effusions. Unable to tolerate MTX due to GI intolerance. HCQ and leflunomide worsened headaches. Pt reluctant to start biologics. Maintained on SSZ 1500 mg bid Last Assessment & Plan: Doing very well on current therapy with upadicitinib XR 15 mg daily. She self weaned off the sulfasalazine and has not had any flares of her joint disease. We discussed the risks and benefits of therapy with a UYE inhibitor including increased risk of heart disease, stroke, blood clots. She would like to change medications at this time and has never tried a TNF inhibitor or any other biologic. She will check with her insurance on what will be covered and will call to let us know. We will switch to a TNF inhibitor at that time. -for now will continue upadicitinib until she calls with information on insurance coverage -will officially discontinue sulfasalazine as patient already stop taking Resolved Problems Problem Noted Date Diagnosed Date Resolved Date Atherosclerosis 08/25/2018 03/31/[address] scan, esophagus 01/02/2018 03/31/2023 Overview (03/31/2023): Patulous Chronic diastolic heart fail ure ([facility]) 11/18/2017 03/31/2023 Overview (03/31/2023): Last Assessment & Plan: Controlled without medication. Followed by Dr. Bermeo. Heterozygous alpha 1-antitry psin deficiency ([facility]) 03/28/2017 03/31/2023 Adenomatous polyp of colon 11/28/2016 0 03/31/2023 Overview (03/31/2023): Last Assessment & Plan: Request colonoscopy report. Essential hypertension 01/17/201103/31 Overview (03/31/2023): Last Assessment & Plan: Hypertension is improving with lifestyle modifications. Regular aerobic exercise. Blood pressure will be reassessed at the next regular appointment. Immunizations Immunization Administration Dates Next Due Arexvy Respiratory Syncytial Virus (RSV, adjuvanted) 0.5 mL, PF 12/12/2022 Fluzone High Dose - >Age 65 (Prefilled Syringe) 10/27/2022,10/20/2021,11/03/2020 Influenza (Generic) 12/13/2018, 8,11/07/2011,2010 Influenza Adult (Generic) 11/24/2019,10/2016,12/02/2015,2014,12/03/2013 MODERNA COVID-19 ([employer]ELVA), MRNA, LNP-S, PF, 50 MCG/ 0.25 ML DOSE 06/05/2021 Pneumococcal (Pneumovax 23) 11/07/2011 Pneumococcal (Prevnar 13) 12/13/2018,11/10/2014 Pneumococcal (Prevnar 20) 06/08/2023 Shingrix 03/27/2020 Tdap (Generic) 02/02/2011 Family History Medical History Relation Comments COPD Father Atrial fibrillation Mother Heart Disease Mother chf Relation Status Comments Father Mother Social History Tobacco Use Types Packs/Day Years Used Date Smoking Tobacco: Former Cigarettes 1 30 1 2010 Passive Smoke Exposure: Current Smokeless Tobacco: Never Alcohol Use Standard Drinks/Week Comments Yes 11.7 (1 standard drink = 0.6 oz pure alcohol) socially PHQ-2 Answer Date Recorded Patient Health Questionnaire-2 Score 0 03/31/2023 Comments No Sex and Gender Information Value Date Recorded Sex Assigned at Not on file Legal Sex Female 3:48 PM CDT Gender Identity Not on file Sexual Orientation Not on file Last Filed Vital Signs Vital Sign Reading Time Taken Comments Blood Pressure 142/86 11/03/2023 1:22 PM CDT Pulse 71 11/03/2023 1:22 PM CDT Temperature 36.3 C (97.4 F) 08/28/2023 10:59 AM CDT Respiratory Rate 18 08/18/2023 1:26 PM CDT Oxygen Saturation 99% 11/03/2023 1:22 PM CDT Inhaled Oxygen Concentration - - Weight 52.9 kg (116 lb 9.6 oz) 11/03/2023 1:22 P M CDT Height 170.2 cm (5' 7) 11/03/2023 1:22 PM CDT Body Mass Index 18.26 11/03/2023 1:22 PM CDT Plan of Treatment Health Maintenance Due Date Last Done Comments ASCVD Statin 1950 Hepatitis C 01/14[birth year]1966 Annual Medicare Wellness Visit 01/14/2013 Lung Cancer Screening 04/28/2018 04/28/2017 Zoster Vaccines (2 of 2) 05/22/2020 03/27/2020 DTaP, Tdap and Td Vaccines (2 - Td or Tdap) 02/02/2021 02/02/2011 COVID-19 Vaccine ( season) 2023 12/12/2022, 06/05/2021, 12/23/2020, Additional history exists PHQ-2 (Physician Magdalena) 02/21/2024 03/31/2023 ASCVD LDL 08/17/2024 08/18/2023 Dexa Scan (General) Completed 02/01/2016, 5 RSV Immunization or 60+ Years Completed 12/12/2022 Pneumococcal Vaccine: 50+ Years Completed 06/08/2023, 12/13/2018, 11/10/2014, Additional history exists Meningococcal B Vaccine Aged Out No l onger eligible based on patient's age to complete this topic Meningococcal Vaccine Aged Out No xiang geo eligible based on patient's age to complete this topic RSV Immunizations Under 20 Months Aged Out No longer eligible based on patient's age to complete this topic Procedures Procedure Name Priority Date/Time Associated Diagnosis Comments LIPID PANEL Routine 08/18/2023 2:01 PM CDT Parkinson's disease, unspecified whether dyskinesia present, unspecified whether manifestations fluctuate Hyperlipidemia, unspecified hyperlipidemia type Age-related osteoporosis without current pathological fracture from Last 3 Months or Most Recently Relevant to Health Maintenance Results * LIPID PANEL (08/18/2023 2:01 PM CDT) CHOLESTEROL 171 <200 MG/DL 08/18/2023 7:33 PM CDT [facility] TRIGLYCERIDES 42 <150 MG/DL 08/18/2023 7:33 PM CDT [facility] HDL 94 >40 MG/DL 08/18/2023 7:33 PM CDT [facility] LDL-C 69 <100 MG/DL 08/18/2023 7:33 PM CDT [facility] VLDL CALCULATION 8 5 - 28 MG/DL 08/18/2023 7:33 PM CDT [facility] CHOL/HDL RATIO 1.8 0.0 - 4.0 08/18/2023 7:33 PM CDT [facility] LDL/HDL 0.7 0.41 - 2.13 08/18/2023 7:33 PM CDT [facility] [place] NON HDL CHOLESTEROL 77 <140 MG/DL 08/18/2023 7:33 PM CDT [facility] [place] 08/18/2023 2:01 PM CDT Kingsley Jane DO LABORATORY Final Re sult [facility] [place] [address] [facility] [place] [address], from Last 3 Months or Most Recently Relevant to Health Maintenance Insurance [employer] Care Teams Psychology Assistant Relationship Specialty Start Date End Date Jovi Tran DO [address] [address] PCP - General INTERNAL MEDICINE 01/26/24
--- OUTSIDE RECORDS SUMMARY | 2024-09-24 14:44 | XMS_ITS | Encounter Summary ---
Author Organization [facility] Address [address] [place] [address] Phone Care Team Providers Care Finisher Card Tender Name Role Phone Ambrosio Whittington MD Primary Care Provider [phone] Ambrosio Whittington MD Primary Care Provider [phone] Jarvis Castillo MD Primary Care Provider [phone] No, Physician Primary Care Provider [phone] Jovi Tran DO Primary Care Provider Jarvis Castillo MD Primary Care Provider [phone] Jarvis Castillo MD Primary Care Provider [phone] Jarvis Castillo MD Unavailable [phone] Thomas Ly MD Unavailable [phone] Lan Bermeo MD Unavailable [phone] Brady POTTER MD, John J. Unavailable [phone] Riki Andres MD Unavailable [phone] Jarvis Castillo MD Unavailable [phone] Encounter Details Date Type Department Care Team (Latest Contact Info) Description 03/29/2017 Orders Only [facility] CONVERSION Scanning, Provider Social History Tobacco Use Types Packs/Day Years Used Date Smoking Tobacco: Former Comments Unknown Sex and Gender Information Value Date Recorded Sex Assigned at Not on file Legal Sex Female 7:17 PM SPEECH AND LANGUAGE SPECIALIST Gender Identity Female 08/19/2018 6:19 PM CDT Sexual Orientation Not on file documented as of this encounter Plan of Treatment Not on file documented as of this encounter Procedures Procedure Name Priority Date/Time Associated Diagnosis Comments PULMONARY FUNCTION TEST (PFT) 03/29/2017 1:08 PM SPEECH AND LANGUAGE SPECIALIST documented in this encounter Results * PULMONARY FUNCTION TEST (PFT) (03/29/2017 1:08 PM SPEECH AND LANGUAGE SPECIALIST) Anatomical Region Laterality Modality PFT us Provider Scanning PFT ORDERABLES Final Result documented in this encounter Visit Diagnoses Not on filedocumented in this encounter Care Teams Finisher Card Tender Relationship Specialty Start Date End Date Ambrosio Whittington MD [address] [place] [address] BRADEN ROSARIO [address] [place] [address] PCP - General Internal Medicine 11/10/16 01/01/18 Ambrosio Whittington MD [address] [place] [address] BRADEN ROSARIO [address] [place] [address] PCP - General 01/03/18 01/08/18 Jarvis Castillo MD [address] [facility] [address] [facility] [address] [place] [address] PCP - General Internal Medicine 01/09/18 10/10/18 No, Physician PCP - General 10/11/18 11/14/18 Jovi Tran DO PCP - General Internal Medicine 11/15/18 01/30/19 Jarvis Castillo MD [address] [place] [address] [place] [address] PCP - General Internal Medicine 01/31/19 04/03/19 Jarvis Castillo MD [address] [place] [address] [place] [address] PCP - General 04/04/19 Jarvis Castillo MD [address] [place] [address] [place] [address] Internal Medicine 04/04/19 Thomas Ly MD [address] [place] [address] [place] [address] Rheumatology 02/07/17 Lan Bermeo MD [address] [facility] [address] [place] [place] [address] Consulting Physician Cardiology 11/29/17 Sarmad Abreu III, MD [address] [place] [address] [place] [address] Consulting Physician Rheumatology 11/29/17 01/01/18 Riki Andres MD [address] [place] [address] [place] [address] Referring Physician Transplant 11/29/17 Jarvis Castillo MD [address] [place] [address] [place] [address] Referring Physician Internal Medicine 01/02/18 8 documented as of this encounter
--- OUTSIDE RECORDS SUMMARY | 2024-09-24 14:44 | XMS_ITS | Clinical Summary ---
Author Organization [facility] [address] Address [address] [place] [address] Phone Care Team Providers Care Youth Director Name Role Phone Jarvis Castillo MD Primary Care Provider [phone] Jarvis Castillo MD Unavailable [phone] Thomas Ly MD Unavailable [phone] Lan Bermeo MD Unavailable [phone] Riki Andres MD Unavailable [phone] Allergies Active Allergy Reactions Criticality Noted Date Comments Enalapril Cough,Fatigue Low 08/14/2017 Medications aspirin 81 MG oral suspension Take 325 mL (325 mg total) by mouth daily as needed Active cholecalciferol (cholecalcifero l) 1,000 unit Take 1 tablet by mouth. 1 Active folic acid (FOLVITE) 1 mg tablet Take 1 tablet (1 mg total) by mouth daily 30 tablet 5 9 Active fluticasone/ume clidin/vilanter (TRELEGY ELLIPTA INHAL) Inhale Activ e alendronate (FOSAMAX) 70 mg tablet TAKE 1 TABLET BY MOUTH WEEKLY 1 Active rosuvastatin (CRESTOR) 10 mg tablet Take 1 tablet (10 mg total) by mouth daily 1 Active upadacitinib 15 mg tablet extended release 24 hr Take 15 mg by mouth daily 90 tablet 3 1 Active albuterol HFA (PROVENTIL HFA,VENTOLIN HFA,PROAIR HFA) 90 mcg/actuation inhaler INHALE 1 PUFF BY MOUTH EVERY 4 HOURS NEEDED FOR SHORTNESS OF BREATH OR WHEEZING 1 Active midodrine (PROAMATINE) 10 mg tablet Take 1 tablet (10 mg total) by mouth 3 (three) times a day 3 Active primidone (MYSOLINE) 50 mg tablet Take 1 tablet (50 mg total) by mouth 3 (three) times a day 3 Active predniSONE (DELTASONE) 10 mg tablet Take 5 tabs (50mg) daily for 2 days, then take 4 tabs (40mg) daily for 2 days. Continue to decrease by 1 tab (10mg) every 2 days until gone. 30 tablet 3 Active azithromycin (ZITHROMAX) 250 mg tablet Take 2 tabs (500 mg) by mouth today, than 1 tab (250 mg) daily for 4 days. 6 tablet 3 Active Active Problems Problem Noted Date Diagnosed Date Physical deconditioning 08/25/2018 Hyperlipidemia 08/25/2018 Pulmonary air trapping 08/25/2018 Impaired gas exchange 08/25/2018 Atherosclerosis 08/25/2018 COPD (chronic obstructive pulmonary disease) Dyspnea 01/02/[address] scan, esophagus 01/02/2018 Overview (01/02/2018): Patulous Low body weight due to inadequate caloric intake 01/02/2018 Multiple nevi 01/02/2018 Cough 01/02/2018 Encounter for screening for lung cancer 12/01/19 18 Assessment & Plan (11/30/2017 11:04 AM CDT): Lung cancer screening Eligibility: 1. Does the patient meet all of the following 3 eligibility criteria: 1) Age 55 to 80; and 2) smoking history at least 30 pack years; and 3) if ex-smoker, quit within the last 15 years? Yes 2. Does the patient have any symptoms that could be due to lung cancer, such as chest pain, new shortness of breath, new or changing cough, coughing up blood, or unexplained significant weight loss? No 3. Current smoker (Packs per day X years smoked)? No 4. If former smoker, then year quit? 2010 How many pack years smoked? 45 5. Is this an Initial Screening or an Annual Follow Up Screening? 6. Did the patient participate in a shared decision making session during which potential benefits and risks of CT Lung Screening were discussed? Yes 7. Was the patient informed of the importance of adherence to annual screening, impact of comorbidities, and ability/willingness to undergo diagnosis and treatment? Yes 8. Was the patient informed of the importance of smoking cessation and/or maintaining smoking abstinence, and informed about tobacco cessation counseling services, if applicable? Yes Osteoporosis 11/30/2017 Assessment & Plan (01/31/2019 12:08 PM FINANCIAL ANALYST ACCOUNTANT): Last DEXA 2015 - BONE MINERAL DENSITY (BMD) lumbar spine [...] due to concern for lingering side effects. Assessment & Plan (11/14/2018 8:44 AM CDT): Last DEXA 2015 - BONE MINERAL DENSITY (BMD) lumbar spine (L1-4): Osteoporosis; T-score -2.8, previously -2.9. BONE MINERAL DENSITY (BMD) left femoral neck: Osteoporosis; T-score -2.6, previously -2.6. Discussed need for repeat DEXA and for osteoporosis treatment. At first she adamantly declines noting previous adverse effect to Fosamax, after reviewing the implications of steroid use on osteoporosis and the need to limit steroids, she indicates that she will consider initiating treatment but not until next year. Indicates that she would prefer oral medication to injectable due to concern for lingering side effects. Assessment & Plan (10/11/2018 9:13 AM CDT): Last DEXA 2015 - BONE MINERAL DENSITY (BMD) lumbar spine (L1-4): Osteoporosis; T-score -2.8, previously -2.9. BONE MINERAL DENSITY (BMD) left femoral neck: Osteoporosis; T-score -2.6, previously -2.6. Discussed need for repeat DEXA and for osteoporosis treatment. At first she adamantly declines noting previous adverse effect to Fosamax, after reviewing the implications of steroid use on osteoporosis and the need to limit steroids, she indicates that she will consider initiating treatment but not until next year. Indicates that she would prefer oral medication to injectable due to concern for lingering side effects. Assessment & Plan (11/30/2017 11:13 AM CDT): Previously TX with Fosamax, but did not tolerate. We discussed options. Refer to [facility]. Chronic diastolic heart failure 11/18/2017 Assessment & Plan (11/30/2017 11:02 AM CDT): Controlled without medication. Followed by Dr. Bermeo. Mitral regurgitation 07/31/2017 Mitral valve prolapse 07/31/2017 Macrocytic anemia 05/25/2017 Heterozygous alpha 1-antitrypsin deficiency 07/2017 Emphysema lung 11/28/2016 Overview (11/30/2017): Assessment & Plan (11/30/2017 11:01 AM CDT): COPD is stable.. Continue current medications. Adenomatous polyp of colon 11/28/2016 Overview (11/30/2017): Assessment & Plan (11/30/2017 11:01 AM CDT): Request colonoscopy report. Impaired fasting glucose 11/28/2016 Assessment & Plan (11/30/2017 11:02 AM CDT): Counseled on exercise, diet. Migraine headache 11/27/2016 Rheumatoid arthritis involvi ng multiple sites with positive rheumatoid factor 08/02/2016 Overview (08/02/2016): Positive RF and anti-ccp abs with erosive changes in hands per xrays. US L hand revealed marked synovitis and effusions. Unable to tolerate MTX due to GI intolerance. HCQ and leflunomide worsened headaches. Pt reluctant to start biologics. Maintained on SSZ 1500 mg bid Assessment & Plan (10/31/2020 4:53 PM CDT): Doing very well on current therapy with upadicitinib XR 15 mg daily. She self weaned off the sulfasalazine and has not had any flares of her joint disease. We discussed the risks and benefits of therapy with a YUE inhibitor including increased risk of heart disease, [...] discontinue sulfasalazine as patient already stop taking Assessment & Plan (01/31/2019 12:08 PM FINANCIAL ANALYST ACCOUNTANT): Moderate cdai. Will continue methotrexate to 20 mg po weekly, folic acid 1 mg daily, as well as sulfasalazine 1500 mg bid. Based upon ongoing joint complaints and synovitis once again discussed the addition of a biologic such as Rinvoq or Xeljanz, though coverage may be an option, vs Juanjose baron. She states that she does not feel ready to start a new medication at this time but is willing to read about them and reconsider at next visit. In the future may need the addition of a biologic such as Xeljanz. Will obtain labs as below. Follow-up in 3 months or sooner as needed. Assessment & Plan (11/15/2018 9:27 AM CDT): Moderate cdai. No profound improvement with recent course of prednisone which is atypical for her and goes against inflammatory arthritis as the source of her pain, ?2/2 OA. Improving this week. For now will continue methotrexate to 20 mg po weekly, folic acid 1 mg daily, as well as sulfasalazine 1500 mg bid and allow more time for effect. In the future may need the addition of a biologic such as Xeljanz. Will obtain labs as below. Follow-up in 3 months or sooner as needed. Assessment & Plan (10/11/2018 9:15 AM CDT): High cdai with increasing joint complaints in the last month, likely due to being further removed from last steroid course. She has been on methotrexate 15 mg po weekly x1 month without adverse effect. At this time will increase methotrexate to 20 mg po weekly, continue folic acid 1 mg daily as well as sulfasalazine 1500 mg bid. In the future may need the addition of a biologic such as Xeljanz. Due to burden of disease will give one week course of prednisone but emphasized the risks (including effects on bone density, HTN, elevated glucose, cataracts, glaucoma, and AVN) once again and our need to avoid the use of steroids going forward. Will obtain labs as below. Follow-up in 1 month or sooner as needed. Assessment & Plan (08/28/2018 11:48 AM CDT): Pt experienced a flares of joint pain in the last couple months which affected her elbows, wrists, and hands requiring multiple courses of prednisone; given this, methotrexate was added which she is tolerating without adverse effect. In the past noted GI upset with MTX but realizes now that she had been taking it without food, taking with food has resolved that issue. Will continue sulfasalazine 1500 mg bid and increase methotrexate to 15 mg po weekly with folic acid 1 mg daily. In the future may consider Xeljanz if needed. Will obtain labs as below. Follow-up in 1 month or sooner as needed. Assessment & Plan (05/29/2018 12:56 PM CDT): Pt experienced a flare of joint pain in the last couple months which affected her elbows, wrists, and hands, now improved after 2 courses of prednisone. She has a low cdai today with several swollen but no tender joints. She remains reluctant to escalate her maintenance regimen and now feels improved after second course of steroids. Will continue sulfasalazine 1500 mg bid. In the future may consider either methotrexate or Xeljanz, though approval may prove to be an obstacle. Will obtain labs as below. Follow-up in 3 months or sooner as needed. Assessment & Plan (04/17/2018 12:32 PM FINANCIAL ANALYST ACCOUNTANT): Pt experienced a flare of joint pain last month which affected her elbows, wrists, and hands. Prednisone 20 mg x7 days improved the elbow pain significantly, but has ongoing pain and swelling in her wrists and throughout her MCPs and PIPs. She has a moderate cdai today with swelling in several joints and a few tender joints. She remains reluctant to escalate therapy at this time, requests an additional course of prednisone to try to manage the flare before adding other maintenance medication. Will continue sulfasalazine 1500 mg b.i.d. and begin course of prednisone at 30 mg daily with plan to decrease by 5 mg every 4 days until off. If symptoms persist or flare once again after completing this course then pt is agreeable to consider either methotrexate or Xeljanz, though approval may prove to be an obstacle. Will obtain labs as below. Follow-up in 6 weeks Assessment & Plan (01/09/2018 8:54 AM FINANCIAL ANALYST ACCOUNTANT): She is doing well with minimal complaints. She does report a couple of months ago she did have a flare-up involving the MCP and PIP joints with pain and swelling which she attributes to overuse of her hands. This has resolved and she reports she has not had any pain whatsoever over the last month. She does have some swelling over the right 2nd and 3rd MCP joints which is unchanged. She does appear stable clinically with no joint tenderness or pain complaints. Continue sulfasalazine 1500 mg b.i.d.. She is reluctant to start biologic treatment although if symptoms progress will consider Xeljanz versus azathioprine. Will obtain labs as below. Follow-up in 3 months. Assessment & Plan (09/05/2017 9:31 AM CDT): She is doing better since her last visit with much improvement in her pain over her MCP joints although she still has some stiffness over the right 2nd and 3rd MCP joints. Her pain has essentially resolved. She no longer is having any shoulder discomfort. She remains on sulfasalazine and is still hesitant to pursue additional medications particularly biologic medications as she is concerned about adverse effects. She does have synovitis over the right 2nd and 3rd MCP joints although no tenderness on exam today. Continue sulfasalazine 1500 mg b.i.d.. I did discuss with her if she does decide to pursue additional medications then we can pursue biologic medications vs xeljanz vs azathioprine at that time. Obtain labs as below. Follow-up in 3 months. Assessment & Plan (06/06/2017 9:10 AM CDT): Had been doing very well until 1 month ago when had flare up in right 2nd, 3rd mcp joints and right shoulder. Prednisone 20 mg daily for 7 days helped symptoms although symptoms recurred. Right shoulder pain has resolved although bilat mcp joints bothering her R>L. She does have synovitis over right 2nd, 3rd mcp joints, left 4th mcp joints. I discussed addition of biologics vs xeljanz vs AZA. Pt still wants to defer due to concern of adverse effects although at next visit she may reconsider. I discussed a triamcinolone IM injection today due to her disease burden although she wants to defer. If she changes her mind I informed her to call and she can come in for injection. Cont SSZ 1500 mg bid. Labs as below. f/u 3 months. Assessment & Plan (02/07/2017 9:11 AM FINANCIAL ANALYST ACCOUNTANT): Doing very well with essentially no complaints on SSZ. Has no acute synovitis on exam and no pain complaints. Cont SSZ 1500 mg bid. Labs as below. F/u 3 months. Assessment & Plan (11/08/2016 8:58 AM CDT): CDAI 12: Moderate disease activity Positive RF and anti-ccp abs with erosive changes in hands per xrays. US L hand revealed marked synovitis and effusions. Pt had been doing well until July when had flare up in L shoulder, hand. Was seen in ER and symptoms resolved with prednisone course. Pt feels she is doing well now and still not wanting more aggressive treatment. Pt does have some synovitis in R wrist, 2nd, 3rd MCP joints on exam today. I discussed addition of biologic med although pt wanting to hold off for now. Cont SSZ 1500 mg bid. Labs as below. F/u 3 months Assessment & Plan (08/02/2016 9:35 AM CDT): CDAI 10: Low disease activity Positive RF and anti-ccp abs with erosive changes in hands per xrays. US L hand revealed marked synovitis and effusions. Unable to tolerate MTX due to GI intolerance. HCQ and leflunomide worsened headaches. Pt reluctant to start biologics. Maintained on SSZ 1500 mg bid and doing well enough per pt report and still not wanting to pursue additional meds for Ra. Symptoms appear stable. With positive serology and erosive changes will likely benefit from biologics although she is reluctant. Cont SSZ 1500 mg bid. Labs as below. F/u 3 months Chronic back pain 08/02/2016 Overview (08/02/2016): More so between shoulders blades and worse at night. No daytime symptoms. Flexeril offered no benefit. Assessment & Plan (08/02/2016 9:36 AM CDT): Had been giving her trouble between shoulder blades at night when she tries to sleep. This has essentially resolved. Not really requiring baclofen or meloxicam. High risk medication use 08/02/2016 Assessment & Plan (10/31/2020 4:54 PM CDT): On upadicitinib for RA. Patient has had baseline CBC, CMP, HBV, HCV and TB screening. -we discussed the risks and benefits of using a YUE inhibitor including increased risk of heart disease, blood clots and she would like to change medications. We will do so when she finds out what TNF inhibitor her insurance will cover -CBC and CMP every 3 months -Ok to continue upadicitinib for now, will switch when insurance information obtained Essential hypertension 01/17/2011 Assessment & Plan (11/30/2017 11:02 AM CDT): Hypertension is improving with lifestyle modifications. Regular aerobic exercise. Blood pressure will be reassessed at the next regular appointment. Perennial allergic rhinitis 01/17/2011 Resolved Problems Problem Noted Date Diagnosed Date Resolved Date Viral respiratory illness 01/02/2018 Gastroesophageal reflux dise ase without esophagitis 04/21/2015 11/30/2017 Immunizations Immunization Administration Dates Next Due Influenza, Quadrivalent, Rec ombinant, Egg Free, Preservative Free, Intramuscular 11/30/2017 Influenza, Split 01/17/2011 Influenza, Trivalent, High D ose, Split, Preservative Free, Intramuscular 11/28/2016,12/02/2015,11/10/2014,12/03 Influenza, Trivalent, Split, Preservative Free, Intradermal 11/07/2011 Pneumococcal Conjugate PCV 13 11/10/2014 Pneumococcal Polysaccharide PPV23 11/07/2011 Tdap 02/02/2011 ZOSTER Recombinant 03/27/2020 Surgical History Surgery Date Site/Laterality Comments TUBAL LIGATION tubal ligation OTHER SURGICAL HISTORY lymph node removal SINUS SURGERY Sinus Surgery - (Added by [facility] Conv) DC TONSILLECTOMY PRIMARY/SEC ONDARY <AGE 10 Tonsillectomy - (Added by [facility] Conv) Medical History Medical History Date Comments COPD (chronic obstructive pu lmonary disease) 01/02/2018 Dyspnea 01/02/[address] scan, esophagus 01/02/2018 Patu lous Essential hypertension 01/17/2011 Adenomatous polyp of colon 11/28/2016 Anemia 05/25/2017 Chronic back pain 08/02/2016 More so betwee n shoulders blades and worse at night. No daytime symptoms. Flexeril offered no benefit. Chronic diastolic heart failure (HCC) 11/18/2017 Emphysema lung 11/28/2016 Heterozygous alpha 1-antitry psin deficiency (HCC) 03/28/2017 Migraine headache 11/27/2016 Mitral regurgitation 07/31/2017 Osteoporosis 11/30/2017 Perennial allergic rhinitis 01/17/2011 Rheumatoid arthritis involvi ng both hands with positive rheumatoid factor (HCC) 11/28/2016 Rheumatoid arthritis involvi ng multiple sites with positive rheumatoid factor (HCC) 08/02/2016 Positive RF and anti-ccp abs with erosive changes in hands per xrays. US L hand revealed marked synovitis and effusions. Unable to tolerate MTX due to GI intolerance. HCQ and leflunomide worsened headaches. Pt reluctant to start biologics. Maintained on SSZ 1500 mg bid Low body weight due to inade quate caloric intake 01/02/2018 Multiple nevi 01/02/2018 Physical deconditioning 08/25/2018 Macrocytic anemia 05/25/2017 Hyperlipidemia 08/25/2018 Pulmonary air trapping 08/25/2018 Impaired gas exchange 08/25/2018 Atherosclerosis 08/25/2018 Family History Medical History Relation Name Comments Ankylosing spondylitis Cousin 1 Ankylosing spondylitis Cousin 2 Migraines Daughter 1 Asthma Daughter 2 Asthma Daughter 3 Emphysema Father Atrial fibrillation Mother Hypertension Mother Liver cancer Paternal Grandfather Stroke Paternal Grandmother Relation Name Status Comments Cousin 1 Cousin 2 Daughter 1 Daughter 2 Daughter 3 Father Mother Paternal Grandfather Paternal Grandmother Social History Tobacco Use Types Packs/Day Years Used Date Smoking Tobacco: Former Cigarettes 1.5 35 1 976 - 2010 Smokeless Tobacco: Never Alcohol Use Standard Drinks/Week Comments Yes 0 (1 standard drink = 0.6 oz pur e alcohol) social PHQ-2 Answer Date Recorded PHQ-2 Score 0 10/11/2018 Comments Unknown Sex and Gender Information Value Date Recorded Sex Assigned at Not on file Legal Sex Female 7:17 PM FINANCIAL ANALYST ACCOUNTANT Gender Identity Female 08/19/2018 6:19 PM CDT Sexual Orientation Not on file Obstetrics History Last Filed Vital Signs Vital Sign Reading Time Taken Comments Blood Pressure 126/78 12/23/2022 10:25 AM CDT Pulse 84 12/23/2022 10:25 AM CDT Temperature 36.8 C (98.2 F) 12/23/2022 10:25 AM CDT Respiratory Rate 18 12/23/2022 10:25 AM CDT Oxygen Saturation 95% 12/23/2022 10:25 AM CDT Inhaled Oxygen Concentration - - Weight 51.7 kg (114 lb) 12/23/2022 10:25 AM CDT Height 170.2 cm (5' 7) 12/23/2022 10:25 AM CDT Body Mass Index 17.85 12/23/2022 10:25 AM CDT Plan of Treatment Health Maintenance Due Date Last Done Comments Hepatitis B Screening 01/14/1968 Osteoporosis Screening-Bone Density Scan 01/31/2018 02/01/2016 Lung Cancer Screening 04/28/2018 04/28/2017, 018 Depression Screening 11/30/2018 11/30/2017 Fall Risk Assessment 11/30/2018 11/30/2017 Well Visit 65+ 11/30/2018 11/30/2017 Zoster Vaccine (2 of 2) 05/22/2020 03/27/2020 DTaP/Tdap/Td Vaccine (2 - Td or Tdap) 02/02/2021 02/02/2011 Pneumococcal vaccine 65+ (3 of 3 - PCV20 or PCV21) 12/14/2023 12/13/2018, 11/10/2014, 11/07/2011 Influenza Vaccine (#1) 2024 8, 11/20/2017, 11/28/2016, Additional history exists Colon Cancer Screening-CT Colonography Discontinued 12/22/2014 Colon Cancer Screening-Colonoscopy Discontinued 12/22/2014 Colon Cancer Screening-DNA Stool Discontinued 12/23/19 15 Colon Cancer Screening-FIT Discontinued 12/22/2014 Colon Cancer Screening-FOBT Discontinued 12/22/2014 Colon Cancer Screening-Sigmoidoscopy Discontinued 12/22/2014 Colorectal Cancer Screening Discontinued Breast Cancer Screening-Mammogram Discontinued 018 Hepatitis C Screening Completed 03/27/2020 , 06/22/2015, 06/22/2015, Additional history exists Procedures Procedure Name Priority Date/Time Associated Diagnosis Comments HEPATITIS C ANTIBODY Routine 03/27/2020 11:53 AM FINANCIAL ANALYST ACCOUNTANT Need for hepatitis C screening test SCREENING MAMMOGRAM BILATERAL W JORDY Schedule Routine, Read Routine (OP Routine) 11/30/2017 12:11 PM CDT Breast cancer screening LUNG CANCER SCREENING Routine 04/28/2017 DEXA SCAN Routine 02/01/2016 COLONOSCOPY Routine 12/22/2014 from Last 3 Months or Most Recently Relevant to Health Maintenance Results * Hepatitis C antibody (03/27/2020 11:53 AM FINANCIAL ANALYST ACCOUNTANT) Hep C Ab Nonreactive Nonreactive COURTNEY ESPINOZA Comment:Antibodies to HCV no t detected. Does NOT exclude the possibility of recent exposure to HCV. Blood specimen (specimen) 03/27/2020 11:53 AM FINANCIAL ANALYST ACCOUNTANT 03/27/2020 12:07 PM FINANCIAL ANALYST ACCOUNTANT us Phillip Jones MD LAB MICROBIOLOGY - GENERAL O RDERABLES Edited Result - Final COURTNEY ESPINOZA [facility] Department [place] [address] * Screening Mammogram Bilateral W Jordy (11/30/2017 12:11 PM CDT) Anatomical Region Laterality Modality Breast Bilateral Digital Radiogra phy Narrative 12/12/2017 10:50 AM CDT Mammogram Technique: Bilateral Digital Breast Tomosynthesis, Bilateral C-view 2D Screening mammogram. Views obtained: bilateral craniocaudal and bilateral mediolateral oblique. Computer Aided Detection was performed. Mammogram Findings: No prior imaging studies are available for comparison. The breasts are heterogeneously dense, which may obscure small masses. There is no suspicious abnormality in either breast. Impression: Annual screening mammography is recommended. OVERALL FINAL ASSESSMENT: BI-RADS CATEGORY 1: Negative. Procedure Note Derick Mclean MD - 12/12/2017 Mammogram Technique: Bilateral Digital Breast Tomosynthesis, Bilateral C-view 2D Screening mammogram. Views obtained: bilateral craniocaudal and bilateral mediolateral oblique. Computer Aided Detection was performed. Mammogram Findings: No prior imaging studies are available for comparison. The breasts are heterogeneously dense, which may obscure small masses. There is no suspicious abnormality in either breast. Impression: Annual screening mammography is recommended. OVERALL FINAL ASSESSMENT: BI-RADS CATEGORY 1: Negative. Ambrosio Whittington MD IMG MAMMO PROCEDURES Pretty l Result * LUNG CANCER SCREENING (04/28/2017) Lung CT Abnormal Historical Provider HEALTH MAINTENANCE Final Result * DEXA SCAN (02/01/2016) DEXA Scan Abnormal Historical Provider HEALTH MAINTENANCE Final Result * COLONOSCOPY (12/22/2014) Colonoscopy Abnormal Historical Provider HEALTH MAINTENANCE Final Result from Last 3 Months or Most Recently Relevant to Health Maintenance Insurance MEDICARE [facility] MEDICARE SUPPLEMENT INSURANCE MEDICARE [facility] MEDICARE SUPPLEMENT INSURANCE [place]ANIELS [id number] [facility] MEDICARE SUPPLEMENT INSURANCE [place]ANIELS [id number] MEDICARE Member Subscriber Plan / Payer (Ef fective 2022-Present) Name:Chandrika Munoz Relation to Subscriber:Self Name:Chandrika Munoz Payer ID:[id number] (NAIC) Type:[facility] MEDICARE Address: [place] [id number] UHC MEDICARE ADVANTAGE Care Teams Youth Director Relationship Specialty Start Date End Date Jarvis Castillo MD [address] [place] [address] PCP - General 04/04/19 Jarvis Castillo MD [address] [place] [address] Internal Medicine 04/04/19 Thomas Ly MD [address] [place] [address] Rheumatology 02/07/17 Lan Bermeo MD [address] [facility] [address] [place] [address] Consulting Physician Cardiology 11/29/17 Riki Andres MD [address] [facility] [address] [facility] [address] [place] [address] Referring Physician Transplant 11/29/17
--- OUTSIDE RECORDS SUMMARY | 2024-09-24 14:44 | XMS_ITS | Referral Summary ---
Author Organization [facility] [address] Address [address] [place] [address] Phone Care Team Providers Care Student Name Role Phone Jarvis Castillo MD Primary Care Provider [phone] Jarvis Castillo MD Unavailable [phone] Thomas Ly MD Unavailable [phone] Lan Bermeo MD Unavailable [phone] Riki Andres MD Unavailable [phone] Allergies Active Allergy Reactions Criticality Noted [...] 11/30/2017 Assessment & Plan (01/31/2019 12:08 PM BRUSHER AND SHEARER): Last DEXA 2015 - BONE MINERAL DENSITY [...] taking Assessment & Plan (01/31/2019 12:08 PM BRUSHER AND SHEARER): Moderate cdai. Will continue methotrexate to 20 [...] needed. Assessment & Plan (04/17/2018 12:32 PM BRUSHER AND SHEARER): Pt experienced a flare of joint pain [...] weeks Assessment & Plan (01/09/2018 8:54 AM BRUSHER AND SHEARER): She is doing well with minimal complaints. [...] months. Assessment & Plan (02/07/2017 9:11 AM BRUSHER AND SHEARER): Doing very well with essentially no complaints [...] PPV23 11/07/2011 Tdap 02/02/2011 ZOSTER Recombinant 03/27/2020 Social History Tobacco Use Types Packs/Day Years Used Date Smoking Tobacco: Former Cigarettes 1.5 35 1 976 - 2011 Smokeless Tobacco: Never Alcohol Use Standard Drinks/Week Comments Yes 0 (1 standard drink = 0.6 oz pur e alcohol) social PHQ-2 Answer Date Recorded PHQ-2 Score 0 10/11/2018 Comments Unknown Sex and Gender Information Value Date Recorded Sex Assigned at Not on file Legal Sex Female 7:17 PM BRUSHER AND SHEARER Gender Identity Female 08/19/2018 6:19 PM CDT Sexual Orientation Not on file Last Filed [...] 12/23/2022 10:25 AM CDT Plan of Treatment Not on file Procedures Procedure Name Priority Date/Time Associated Diagnosis Comments HEPATITIS C ANTIBODY Routine 03/27/2020 11:53 AM BRUSHER AND SHEARER Need for hepatitis C screening test SCREENING MAMMOGRAM BILATERAL W JORDY Schedule Routine, Read Routine (OP Routine) 11/30/2017 12:11 PM CDT Breast cancer screening HM LUNG CANCER SCREENING Routine 04/28/2017 DEXA SCAN Routine 02/01/2016 COLONOSCOPY Routine 12/22/2014 from Last 3 Months or Most Recently Relevant to Health Maintenance Results * Hepatitis C antibody (03/27/2020 11:53 AM BRUSHER AND SHEARER) Hep C Ab Nonreactive Nonreactive [facility] Comment:Antibodies to HCV no t detected. Does NOT exclude the possibility of recent exposure to HCV. Blood specimen (specimen) 03/27/2020 11:53 AM BRUSHER AND SHEARER 03/27/2020 12:07 PM BRUSHER AND SHEARER us Phillip Jones MD LAB MICROBIOLOGY - GENERAL O RDERABLES Edited Result - Final [facility] Department [place] [address] * Screening Mammogram Bilateral W Jordy (11/30/2017 [...] Recently Relevant to Health Maintenance Insurance MEDICARE [employer] [facility] MEDICARE SUPPLEMENT INSURANCE MEDICARE [facility] MEDICARE SUPPLEMENT INSURANCE [facility] MEDICARE SUPPLEMENT INSURANCE MEDICARE [facility] MEDICARE ADVANTAGE [facility] MEDICARE ADVANTAGE Care Teams Student Relationship Specialty Start Date End Date Jarvis Castillo MD [address] [place] [address] PCP - General 04/04/19 Jarvis Castillo MD [address] [place] [address] Internal Medicine 04/04/19 Thomas Ly MD [address] [place] [address] Rheumatology 02/07/17 Lan Bermeo MD [address] [place] [address] Consulting Physician Cardiology 11/29/17 Riki Andres MD [address] [place] [address] Referring Physician Transplant 11/29/17
== END 2024-09-24 14:39 | disposition home or self-care (01) ==
PROVIDERS: PCP Internal Medicine; Visit Provider Internal Medicine
DX: Z12.2 Encounter for screening for malignant neoplasm of respiratory organs (principal); J43.9 Emphysema, unspecified; R09.89 Other specified symptoms and signs involving the circulatory and respiratory systems; Z87.891 Personal history of nicotine dependence
CPT/HCPCS: 70486; 71271

== ENCOUNTER 2024-10-04 07:16 | Day surgery (SDC) | payer OTHER, SELFPAY ==
[2024-09-17 13:36] VITALS: BMI 17.1
--- OUTSIDE RECORDS SUMMARY | 2024-10-04 07:19 | XMS_ITS | Clinical Summary ---
Author Organization [facility] Address [address] [facility] [address] [place] [place] [address] Care Team Providers Care Safety Spec Name Role Phone Chilo Shah MD Primary Care Provider [phone] Source Comments [facility],non-owned Affiliates and Associated Physician Practices is amultiple site organization consisting of ambulatory clinics and hospital sitesin [place], [place], [place] and [place]. This disclosure is being madepursuant to the Care Everywhere program and may not contain all information available regarding this patient. Last updated 17.[facility] Medications * Be aware that medications may [...] DENSITY AXIAL SKELETON Routine 02/01/2016 9:00 AM CLINICAL LAB ASSISTANT HEPATITIS SCREEN ACUTE Routine 07/15/2014 10:18 AM CDT from Last 3 Months or Most Recently Relevant to Health Maintenance Results * DEXA BONE DENSITY AXIAL SKELETON (02/01/2016 9:00 AM CLINICAL LAB ASSISTANT) Anatomical Region Laterality Modality Other Narrative 02/02/2016 8:41 AM CLINICAL LAB ASSISTANT Examination: Dual energy x-ray absorptiometry of the lumbar spine and hip. Clinical Indication: 66-year-old female with prolonged steroid use screening for osteoporosis Findings: Detailed data from the exam is sent separately to the ordering physician and is also available on [employer], the Radiology Department's computerized picture archive system [...] the orderingphysician and is also available on [employer], the Radiology Department'[employer] picture archive system SUMMARY: Comparison made with [...] CDT) Hepatitis A Virus Antibody IgM Non-react [facility] Hepatitis B Virus Surface Antigen Non-react [facility] Hepatitis B Core Virus Antibody IgM Non-react [facility] Hepatitis C Antibody Non-react [facility] Comment: Hepatitis C Antibody screen indicates no [...] LAB - CHEMISTRY OR DERABLES Final Result [address] [phone] from Last 3 Months or Most Recently Relevant to Health Maintenance [place] [address] [place] [address] MEDICARE [facility] Care Teams Safety Spec Relationship Specialty Start Date End Date Chilo Shah MD [address] [place] [address] PCP - General 06/20/17
--- OUTSIDE RECORDS SUMMARY | 2024-10-04 07:19 | XMS_ITS | Clinical Summary ---
Author Organization [facility] [address] Address [address] [place] [address] Phone Care Team Providers Care Cigarette Tipper Name Role Phone Jarvis Castillo MD Primary Care Provider [phone] Jarvis Castillo MD Unavailable [phone] Thomas Ly MD Unavailable [phone] Lan Bermeo MD Unavailable [phone] Riki Andres MD Unavailable [phone] Allergies Active Allergy Reactions Criticality Noted [...] 11/30/2017 Assessment & Plan (01/31/2019 12:08 PM SENIOR LITIGATION PARALEGAL): Last DEXA 2015 - BONE MINERAL DENSITY [...] taking Assessment & Plan (01/31/2019 12:08 PM SENIOR LITIGATION PARALEGAL): Moderate cdai. Will continue methotrexate to 20 [...] needed. Assessment & Plan (04/17/2018 12:32 PM SENIOR LITIGATION PARALEGAL): Pt experienced a flare of joint pain [...] weeks Assessment & Plan (01/09/2018 8:54 AM SENIOR LITIGATION PARALEGAL): She is doing well with minimal complaints. [...] months. Assessment & Plan (02/07/2017 9:11 AM SENIOR LITIGATION PARALEGAL): Doing very well with essentially no complaints [...] Sinus Surgery - (Added by TW Conv) [facility] TONSILLECTOMY PRIMARY/SEC ONDARY <AGE 10 Tonsillectomy - [...] on file Legal Sex Female 7:17 PM SENIOR LITIGATION PARALEGAL Gender Identity Female 08/19/2018 6:19 PM CDT [...] HEPATITIS C ANTIBODY Routine 03/27/2020 11:53 AM SENIOR LITIGATION PARALEGAL Need for hepatitis C screening test SCREENING MAMMOGRAM BILATERAL W JORDY Schedule Routine, Read Routine (OP Routine) 11/30/2017 12:11 PM CDT Breast cancer screening LUNG CANCER SCREENING Routine 04/28/2017 DEXA SCAN Routine 02/01/2016 COLONOSCOPY Routine 12/22/2014 from Last 3 Months or Most Recently Relevant to Health Maintenance Results * Hepatitis C antibody (03/27/2020 11:53 AM SENIOR LITIGATION PARALEGAL) Hep C Ab Nonreactive Nonreactive [facility] Comment:Antibodies to HCV no t detected. Does NOT exclude the possibility of recent exposure to HCV. Blood specimen (specimen) 03/27/2020 11:53 AM SENIOR LITIGATION PARALEGAL 03/27/2020 12:07 PM SENIOR LITIGATION PARALEGAL us Phillip Jones MD LAB MICROBIOLOGY - GENERAL O RDERABLES Edited Result - Final [facility] [place] [address] * Screening Mammogram Bilateral W Jordy (11/30/2017 [...] Recently Relevant to Health Maintenance Insurance MEDICARE [facility] MEDICARE SUPPLEMENT INSURANCE MEDICARE [facility] MEDIC[facility] SUPPLEMENT INSURANCE [place] [id number] [facility] MEDICARE SUPPLEMENT INSURANCE [place] [id number] MEDICARE Member Subscriber Plan / Payer (Ef fective 2022-Present) Name:Chandrika Munoz Relation to Subscriber:Self Name:Chandrika Munoz Payer ID:[id number] (NAIC) Type:[facility] MEDICARE Address: [place] [id number] UHC MEDICARE ADVANTAGE Care Teams Cigarette Tipper Relationship Specialty Start Date End Date Jarvis Castillo MD [address] [place] [address] PCP - General 04/04/19 Jarvis Castillo MD [address] [place] [address] Internal Medicine 04/04/19 Thomas Ly MD [address] [place] [address] Rheumatology 02/07/17 Lan Bermeo MD [address] [facility] [address] [place] [address] Consulting Physician Cardiology 11/29/17 Riki Andres MD [address] [facility] [address] [facility] [address] [place] [address] Referring Physician Transplant 11/29/17
--- OUTSIDE RECORDS SUMMARY | 2024-10-04 07:19 | XMS_ITS | Encounter Summary ---
Author Organization [facility] Address [address] [place] [address] Phone Care Team Providers Care Dairy Truck Driver Name Role Phone Ambrosio Whittington MD Primary Care Provider [phone] Ambrosio Whittington MD Primary Care Provider [phone] Jarvis Castillo MD Primary Care Provider [phone] No, Physician Primary Care Provider [phone] Jovi Tran DO Primary Care Provider [phone] Jarvis Castillo MD Primary Care Provider [phone] Jarvis Castillo MD Primary Care Provider [phone] Jarvis Castillo MD Unavailable [phone] Thomas Ly MD Unavailable [phone] Lan Bermeo MD Unavailable [phone] Brady POTTER MD, John J. Unavailable [phone] Riki Andres MD Unavailable [phone] Jarvis Castillo MD Unavailable [phone] Encounter Details Date Type Department Care Team (Latest Contact Info) Description 03/29/2017 Orders Only [facility] CONVERSION Scanning, Provider Social History Tobacco Use Types Packs/Day Years Used Date Smoking Tobacco: Former Comments Unknown Sex and Gender Information Value Date Recorded Sex Assigned at Not on file Legal Sex Female 7:17 PM RECOVERY OPERATOR HELPER Gender Identity Female 08/19/2018 6:19 PM CDT Sexual Orientation Not on file documented as of this encounter Plan of Treatment Not on file documented as of this encounter Procedures Procedure Name Priority Date/Time Associated Diagnosis Comments PULMONARY FUNCTION TEST (PFT) 03/29/2017 1:08 PM RECOVERY OPERATOR HELPER documented in this encounter Results * PULMONARY FUNCTION TEST (PFT) (03/29/2017 1:08 PM RECOVERY OPERATOR HELPER) Anatomical Region Laterality Modality PFT us Provider Scanning PFT ORDERABLES Final Result documented in this encounter Visit Diagnoses Not on filedocumented in this encounter Care Teams Dairy Truck Driver Relationship Specialty Start Date End Date Ambrosio Whittington MD [address] [place] [address] [address]ARIO [address] [place] [address] PCP - General Internal Medicine 11/10/16 01/01/18 Ambrosio Whittington MD [address] [place] [address] [address] [place] [address] PCP - General 01/03/18 01/08/18 Jarvis Castillo MD [address] [facility] [address] [facility] [address] [place] [address] PCP - General Internal Medicine 01/09/18 10/10/18 No, Physician PCP - General 10/11/18 11/14/18 Jovi Tran DO PCP - General Internal Medicine 11/15/18 01/30/19 Jarvis Castillo MD [address] [place] [address] PCP - General Internal Medicine 01/31/19 04/03/19 Jarvis Castillo MD [address] [place] [address] PCP - General 04/04/19 Jarvis Castillo MD [address] [place] [address] Internal Medicine 04/04/19 Thomas Ly MD [address] [place] [address] Rheumatology 02/07/17 Lan Bermeo MD [address] [facility] [address] [place] [address] Consulting Physician Cardiology 11/29/17 Sarmad Abreu III, MD [address] [place] [address] Consulting Physician Rheumatology 11/29/17 01/01/18 Riki Andres MD [address] [place] [address] Referring Physician Transplant 11/29/17 Jarvis Castillo MD [address] [place] [address] Referring Physician Internal Medicine 01/02/18 8 documented as of this encounter
--- OUTSIDE RECORDS SUMMARY | 2024-10-04 07:19 | XMS_ITS | Continuity of Care Document ---
Author Organization [facility] Address [address] [place] [address] [place] [address] Phone Care Team Providers Care Record Changer Tester Name Role Phone Epperson OD, Bobby Unavailable Unavailable Advance Directives Directive Yes / No Effective Date File Name No Information Encounters Encounter Description Practice Location Reason(s) For Visit Diagnoses Date Provider Providers Copied on Encounter [facility], [address] [place] [address] [address], [place], [place], [id number], [place] tel:[phone] [facility]3] No Information Sep- 8-200 3 Epperson OD Bobby. [address] , [address], [place], [address], [place]. tel:[phone] Family History Family Member Type Diagnosis Age At Onset No Information Payers Payer name Insurance type Covered green party ID Authoriza tion(s) No Information Social [...]
[2024-10-04 13:14] VITALS: BP 137/65; PULSE 90; RESP 20; TEMP 36.9; O2SAT 91; BMI 16.4
[2024-10-04] MEDS: LACTATED RINGERS 1,000 ML 150 ML IV CONT (13:23)
--- NOTE | 2024-10-04 14:15 | WPDANESEPPF ---
Anes - Initial Pre Proc Eval Procedure: Operation Date: 10/04/24 14:30 Proposed Procedures p Diagnostic Colonoscopy - Nguyễn Parker MD Date/Time: 10/04/24 14:15 Surgeon: Nguyễn Parker MD Pre Op Diagnosis: Unspecified abdominal pain Patient Data Age: 74 Gender: F Height: 1.7 m Weight: 47.6 kg Last Vital Signs Temp 98.5 F 10/04/24 13:14 Pulse 90 10/04/24 13:14 Resp 20 10/04/24 13:14 BP 137/65 10/04/24 13:14 Pulse Ox 91 10/04/24 13:14 O2 Del Method Room Air 10/04/24 13:14 Allergies Allergy/AdvReac Type Severity Reaction Status Date / Time No Known Allergies Allergy Verified 10/04/24 13:13 Home Medications ?Medication ?Instructions ?Recorded ?Confirmed ?Type folic acid 1 mg tablet 1 mg PO DAILY 01/07/19 10/04/24 History mecobalamin (vitamin B12) 1,000 1,000 mcg sublingual DAILY 11/21/19 10/04/24 History mcg disintegrating tablet,sublingual aspirin 325 mg tablet 325 mg PO Q4H PRN Migraine Headache 07/18/22 10/04/24 History fluticasone fur. 100 mcg-umeclid See Rx Instructions .Route 02/19/24 10/04/24 Rx 62.5 mcg-vilant 25 mcg .COMPLEX #180 ea inhalat.powder (Trelegy Ellipta) rosuvastatin 10 mg tablet See Rx Instructions .Route 03/15/24 10/04/24 Rx .COMPLEX #90 tabs albuterol sulfate 90 mcg/actuation 1 inh inhalation Q4H PRN shortness 09/11/24 09/17/24 Rx aerosol inhaler (ProAir HFA) of breath or wheezing #6.7 grams azithromycin 250 mg tablet 250 mg PO QMWF #36 tabs 09/11/24 10/04/24 Rx cholecalciferol (vitamin D3) 50 5,000 unit PO DAILY 09/11/24 10/04/24 History mcg (2,000 unit) tablet magnesium BYMOUTH 09/11/24 09/11/24 History carbidopa 25 mg-levodopa 100 mg 1 tablet PO BID 09/17/24 10/04/24 History tablet (Sinemet) Patient hx anesthesia problems: none Family hx anesthesia problems: none Results Review: All pre-operative results and documents have been reviewed as part of the pre-operative evaluation. [facility] Past Medical History Medical History (Updated 09/30/24 @ 14:48 by Taisha Lomax MA) Constipation Personal history of nicotine dependence Left knee pain Sprain of left foot Fall from ground level Personal history of COVID-19 Need for COVID-19 vaccine History of colonic polyps Elevated coronary artery calcium score Hematuria Pneumonia Sinus drainage Trigger finger of both hands Colon cancer screening Adult BMI <19 kg/sq m Post menopausal problems Cervicalgia Radicular pain of shoulder Abnormal finding of blood chemistry, unspecified MVP (mitral valve prolapse) Rheumatoid arthritis Encounter for Medicare annual wellness exam Follow up Elevated homocysteine Hyperlipidemia Mitral valve regurgitation Encounter for screening mammogram for malignant neoplasm of breast Resting tremor DJD (degenerative joint disease), multiple sites Vitamin D deficiency COPD (chronic obstructive pulmonary disease) Encounter for routine adult health examination without abnormal findings On fci drug therapy Chronic mitral valve regurgitation Migraines Surgical History Surgical History H/O colonoscopy with polypectomy S/P tonsillectomy History of lymph node excision Hx of tubal ligation 1972 Hx of breast surgery 1974 Family History Family History Mother Hypertension Family history of atrial fibrillation Family history of congestive heart failure Family history of hearing loss Father Family history of chronic obstructive pulmonary disease Other Cerebrovascular accident Family history of liver disease Social History Social History Social History: She lives alone and is ( he is now ) and had 2 children. 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 her children on the durable power grain combine driver for healthcare. The patient is a former smoker. Full code. Smoking packs per day: 1 Smoking cigarettes per day: 20.0 Years smoked: 36 Smoking pack-years: 36.00 Smoking status: Former smoker Smoking end date: 01/23/11 Alcohol intake: current Drinks per week: 1 Alcohol use details: socially Substance use: never Substance use type: does not use Lack of Transportation: No Lack of Food: Never True Current Housing: I Do Not Have Housing Concerned About Future Housing: No Difficulty Paying Gas/Electric Bills: No Difficulty Paying for Meds: No Currently Unemployed: No Education: Associate Degree Difficulty w/ Childcare or Family Care: No Living arrangements: alone Occupation/Education: occupation Gender identity (if verbalized by the patient): Female Spiritual care concerns: No Anes - Eval Final PreProcedure Day of Procedure 10/04/24 14:15 Patient weight: normal and cachectic Lungs: normal air movement Airway: Mallampati scale class II Neurological: alert and oriented Last oral intake: >/= 8 hours ASA classification: III Emergent: no Anesthetic plan: proceed Anesthesia type and monitoring: general GIVS and standard monitoring Results Review: All pre-operative results and documents have been reviewed as part of the pre-operative evaluation. Hyperlipidemia, ex smoker, quit 2010, COPD noted. Informed Consent: The patient's anesthetic plan and its attendant risks and benefits were discussed with the patient/family/POA. Questions were solicited and answers provided to the satisfaction of the patient/family/POA.
--- NOTE | 2024-10-04 14:26 | P.HP_ITS ---
H&P: HPI History of Present Illness Date/Time: 10/04/24 14:26 Chief Complaint: History of polyps Narrative: The patient has a history of colonic polyps, the last colonoscopy was in 2020, there are no polyps. However on previous colonoscopy she was told that she had polyps. Review of Systems Review of Systems: All systems reviewed & are unremarkable except as noted in HPI and below PMFSH Past Medical History Medical History (Updated 09/30/24 @ 14:48 by Taisha Lomax MA) Constipation Personal history of nicotine dependence Left knee pain Sprain of left foot Fall from ground level Personal history of COVID-19 Need for COVID-19 vaccine History of colonic polyps Elevated coronary artery calcium score Hematuria Pneumonia Sinus drainage Trigger finger of both hands Colon cancer screening Adult BMI <19 kg/sq m Post menopausal problems Cervicalgia Radicular pain of shoulder Abnormal finding of blood chemistry, unspecified MVP (mitral valve prolapse) Rheumatoid arthritis Encounter for Medicare annual wellness exam Follow up Elevated homocysteine Hyperlipidemia Mitral valve regurgitation Encounter for screening mammogram for malignant neoplasm of breast Resting tremor DJD (degenerative joint disease), multiple sites Vitamin D deficiency COPD (chronic obstructive pulmonary disease) Encounter for routine adult health examination without abnormal findings On iron miner blasting drug therapy Chronic mitral valve regurgitation Migraines Surgical History Surgical History H/O colonoscopy with polypectomy S/P tonsillectomy History of lymph node excision Hx of tubal ligation 1972 Hx of breast surgery 1974 Family History Family History Mother Hypertension Family history of atrial fibrillation Family history of congestive heart failure Family history of hearing loss Father Family history of chronic obstructive pulmonary disease Other Cerebrovascular accident Family history of liver disease Social History Social History Social History: She lives alone and is ( he is now ) and had 2 children. 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 her children on the durable power criminal attorney for [employer]. The patient is a former smoker. Full code. Smoking packs per day: 1 Smoking cigarettes per day: 20.0 Years smoked: 36 Smoking pack-years: 36.00 Smoking status: Former smoker Smoking end date: 01/23/11 Alcohol intake: current Drinks per week: 1 Alcohol use details: socially Substance use: never Substance use type: does not use Lack of Transportation: No Lack of Food: Never True Current Housing: I Do Not Have Housing Concerned About Future Housing: No Difficulty Paying Gas/Electric Bills: No Difficulty Paying for Meds: No Currently Unemployed: No Education: Associate Degree Difficulty w/ Childcare or Family Care: No Living arrangements: alone Occupation/Education: occupation Gender identity (if verbalized by the patient): Female Spiritual care concerns: No Meds Home Medications and Allergies Home Medications ?Medication ?Instructions ?Recorded ?Confirmed ?Type folic acid 1 mg tablet 1 mg PO DAILY 01/07/19 10/04/24 History mecobalamin (vitamin B12) 1,000 1,000 mcg sublingual DAILY 11/21/19 10/04/24 History mcg disintegrating tablet,sublingual aspirin 325 mg tablet 325 mg PO Q4H PRN Migraine Headache 07/18/22 10/04/24 History fluticasone fur. 100 mcg-umeclid See Rx Instructions .Route 02/19/24 10/04/24 Rx 62.5 mcg-vilant 25 mcg .COMPLEX #180 ea inhalat.powder (Trelegy Ellipta) rosuvastatin 10 mg tablet See Rx Instructions .Route 03/15/24 10/04/24 Rx .COMPLEX #90 tabs albuterol sulfate 90 mcg/actuation 1 inh inhalation Q4H PRN shortness 09/11/24 09/17/24 Rx aerosol inhaler (ProAir HFA) of breath or wheezing #6.7 grams azithromycin 250 mg tablet 250 mg PO QMWF #36 tabs 09/11/24 10/04/24 Rx cholecalciferol (vitamin D3) 50 5,000 unit PO DAILY 09/11/24 10/04/24 History mcg (2,000 unit) tablet magnesium BYMOUTH 09/11/24 09/11/24 History carbidopa 25 mg-levodopa 100 mg 1 tablet PO BID 09/17/24 10/04/24 History tablet (Sinemet) Allergies Allergy/AdvReac Type Severity Reaction Status Date / Time No Known Allergies Allergy Verified 10/04/24 13:13 Vital Signs Vital Signs - 24 hr 10/04/24 13:14 Temperature 98.5 F Pulse Rate 90 Respiratory Rate 20 Blood Pressure 137/65 Pulse Oximetry 91 Oxygen Delivery Room Air Exam Const: General: cooperative and healthy appearing Resp: Effort & Inspection: normal respiratory effort and able to speak in complete sentences Auscultation: clear to auscultation bilaterally Cardio: Rate: regular rate Rhythm: regular rhythm GI: Inspection: normal to inspection GI Palp: No No hepatosplenomegaly present Auscultation: normal bowel sounds Rectal Exam: deferred Skin: General skin exam: normal color Psych: Appearance: grossly normal Mental Status: mental status grossly normal Assessment and Plan Assessment and plan (1) History of colon polyps: Code(s): Z86.010 - Personal history of colon polyps Status: Acute Assessment and Plan: The patient is deemed a good candidate for the procedure. Consent signed. Will proceed.
[2024-10-04 14:52] VITALS: BP 105/63; PULSE 81; RESP 21; O2SAT 98
[2024-10-04 15:02] VITALS: BP 118/65; PULSE 82; RESP 20; O2SAT 98
[2024-10-04 15:12] VITALS: BP 128/64; PULSE 80; RESP 17; O2SAT 97
== END 2024-10-04 15:20 | disposition home or self-care (01) ==
PROVIDERS: PCP Internal Medicine; Referring Provider Internal Medicine; Visit Provider Internal Medicine Gastroenterology
PROC: 0DJD8ZZ Inspection of Lower Intestinal Tract, Via Natural or Artificial Opening Endoscopic (ICD-10-PCS; CPT 45378; principal; 2024-10-04 14:30)
DX: Z12.11 Encounter for screening for malignant neoplasm of colon (principal); K64.8 Other hemorrhoids; E78.5 Hyperlipidemia, unspecified; E55.9 Vitamin D deficiency, unspecified; J44.9 Chronic obstructive pulmonary disease, unspecified; I34.0 Nonrheumatic mitral (valve) insufficiency; G25.2 Other specified forms of tremor; M15.0 Primary generalized (osteo)arthritis; M06.9 Rheumatoid arthritis, unspecified; Z79.82 Long term (current) use of aspirin; Z79.51 Long term (current) use of inhaled steroids; Z79.899 Other long term (current) drug therapy; Z98.890 Other specified postprocedural states; Z98.51 Tubal ligation status; Z87.891 Personal history of nicotine dependence; Z86.0100 Personal history of colon polyps, unspecified; Z86.79 Personal history of other diseases of the circulatory system; Z82.49 Family history of ischemic heart disease and other diseases of the circulatory system
CPT/HCPCS: G0105; J2003; J2704; J7120

== ENCOUNTER 2024-11-13 10:57 | Outpatient (CLI) | payer OTHER, SELFPAY ==
--- OUTSIDE RECORDS SUMMARY | 2002-11-07 10:30 | XMS_ITS | Continuity of Care Document ---
Author Organization [facility] Address [id number] [place] [address] [place] [address] Phone Care Team Providers Care Client Technical Support Associate Name Role Phone Epperson OD, Bobby Unavailable Unavailable Advance Directives Directive Yes / No Effective Date File Name No Information Encounters Encounter Description Practice Location Reason(s) For Visit Diagnoses Date Provider Providers Copied on Encounter [facility], [id number] [place] [address] [address], [place], [place], [id number], [place] tel:[phone] [facility] No Information Sep- 8-200 3 Epperson OD Bobby. [address] , [address], [place], [address], [place]. tel:[phone] Family History Family Member Type Diagnosis Age At Onset No Information Payers Payer name Insurance type Covered constitution party ID Authoriza tion(s) No Information Social History Type Description Quantity Date Captured Comments Sex Female Smoking Status No Information Chief Complaint And Reason For Visit No Information Reason For Referral Reason For Referral No Information History Of Present Illness Encounter Date Complaint History Of Prese nt Illness No Information Functional Status Date Functional Assessmen t No Information Instructions Date Instruction Additional Infor mation No Information Assessments Type Assessment Date No Information Patient Care Teams Name Effective Dates (start - stop) Status Members No Information
--- NOTE | ~2024-11-13 | US_ITS ---
Examination: US abdomen complete Clinical History: R10.9 - Unspecified abdominal pain . Comparison: CT abdomen and pelvis 05/12/2021 Technique: Complete abdominal sonography Findings: Liver: Normal size. Normal echotexture. No intrahepatic biliary ductal dilatation. Normal hepatopedal flow main portal vein. Common duct: 8 mm. Gallbladder: Stones. No wall thickening. No pericholecystic fluid. Negative sonographic Muñoz's sign per technologist report. Spleen: Unremarkable. Pancreas: Visualized portions unremarkable. Kidneys: Unremarkable. Aorta: No aneurysmal dilatation. Retrohepatic IVC: Unremarkable. IMPRESSION: 1. No acute findings. 2. Gallstones. No evidence of acute cholecystitis. 3. Common bile duct mildly dilated at 8 mm. If elevated bilirubin, consider choledocholithiasis. Reviewed, dictated and finalized at location R. IMPRESSION: 1. No acute findings. 2. Gallstones. No evidence of acute cholecystitis. 3. Common bile duct mildly dilated at 8 mm. If elevated bilirubin, consider ch oledocholithiasis.
[2024-11-13 11:23] LABS: Hematocrit 40.5 % (37.0-47.0); Hemoglobin 12.8 g/dL (12.0-15.0); Immature Granulocyte Percent A 0.5 % (0-0.5); Lymphocytes Absolute Auto 0.71 K/mm3 (0.9-3.2); Mean Corpuscular HGB Conc 31.6 g/dl (32-36); Mean Corpuscular Hemoglobin 30.1 pg (26-34); Mean Corpuscular Volume 95.3 fl (80-100); Nucleated Red Blood Cells Absolute Auto 0.000 K/mm3 (0.0-0.012); Nucleated Red Blood Cells Perc 0.0 % (0.0-0.2); Platelet Count Result 216 k/mm3 (150-375); Red Blood Count 4.25 M/mm3 (4.2-5.4); White Blood Count 6.4 K/mm3 (4.5-10.0)
--- OUTSIDE RECORDS SUMMARY | 2024-11-13 11:54 | XMS_ITS | Clinical Summary ---
Author Organization [facility] [address] Address [address] [place] [address] Phone Care Team Providers Care Social Security Benefits Interviewer Name Role Phone Jarvis Castillo MD Primary Care Provider [phone] Jarvis Castillo MD Unavailable [phone] Thomas Ly MD Unavailable [phone] Lan Bermeo MD Unavailable [phone] Riki Andres MD Unavailable [phone] Allergies Active Allergy Reactions Criticality Noted [...] 11/30/2017 Assessment & Plan (01/31/2019 12:08 PM CHICKEN CLEANER): Last DEXA 2015 - BONE MINERAL DENSITY [...] taking Assessment & Plan (01/31/2019 12:08 PM CHICKEN CLEANER): Moderate cdai. Will continue methotrexate to 20 [...] needed. Assessment & Plan (04/17/2018 12:32 PM CHICKEN CLEANER): Pt experienced a flare of joint pain [...] weeks Assessment & Plan (01/09/2018 8:54 AM CHICKEN CLEANER): She is doing well with minimal complaints. [...] months. Assessment & Plan (02/07/2017 9:11 AM CHICKEN CLEANER): Doing very well with essentially no complaints [...] Sinus Surgery - (Added by TW Conv) [place] TONSILLECTOMY PRIMARY/SEC ONDARY <AGE 10 Tonsillectomy - [...] on file Legal Sex Female 7:17 PM CHICKEN CLEANER Gender Identity Female 08/19/2018 6:19 PM CDT [...] HEPATITIS C ANTIBODY Routine 03/27/2020 11:53 AM CHICKEN CLEANER Need for hepatitis C screening test SCREENING MAMMOGRAM BILATERAL W JORDY Schedule Routine, Read Routine (OP Routine) 11/30/2017 12:11 PM CDT Breast cancer screening LUNG CANCER SCREENING Routine 04/28/2017 DEXA SCAN Routine 02/01/2016 COLONOSCOPY Routine 12/22/2014 from Last 3 Months or Most Recently Relevant to Health Maintenance Results * Hepatitis C antibody (03/27/2020 11:53 AM CHICKEN CLEANER) Hep C Ab Nonreactive Nonreactive COURTNEY ESPINOZA Comment:Antibodies to HCV no t detected. Does NOT exclude the possibility of recent exposure to HCV. Blood specimen (specimen) 03/27/2020 11:53 AM CHICKEN CLEANER 03/27/2020 12:07 PM CHICKEN CLEANER us Phillip Jones MD LAB MICROBIOLOGY - GENERAL O RDERABLES Edited Result - Final COURTNEY ESPINOZA [facility] Department [place] [address] * Screening Mammogram Bilateral W Jordy (11/30/2017 [...] Recently Relevant to Health Maintenance Insurance MEDICARE [facility] INS CO [facility] MEDICARE SUPPLEMENT INSURANCE MEDICARE [facility] MEDICARE SUPPLEMENT INSURANCE JEN DANIELS [id number] [facility] MEDICARE SUPPLEMENT INSURANCE JEN DANIELS [id number] MEDICARE [facility] MEDICARE Address: [place] [id number] UHC MEDICARE ADVANTAGE [facility] MEDICARE Address: [place] [id number] Care Teams Social Security Benefits Interviewer Relationship Specialty Start Date End Date Jarvis Castillo MD [address] [place] [address] PCP - General 04/04/19 Jarvis Castillo MD [address] [place] [address] Internal Medicine 04/04/19 Thomas Ly MD [address] [place] [address] Rheumatology 02/07/17 Lan Bermeo MD [address] [facility] [address] [place] [address] Consulting Physician Cardiology 11/29/17 Riki Andres MD [address] [facility] [address] [facility] [address] [place] [address] Referring Physician Transplant 11/29/17
--- OUTSIDE RECORDS SUMMARY | 2024-11-13 11:54 | XMS_ITS | Clinical Summary ---
Author Organization [facility] Address [address] [place] [address] Care Team Providers Care Ice Delivery Driver Name Role Phone Adrian Trandichasity Tracey Primary Care Provider Allergies No known active allergies Medications Upadacitinib [...] by mouth nightly at bedtime. 4 Active TRELEGY ELLIPTA 100-62.5-25 MCG/ACT AEROSOL POWDER, BREATH ACTIVATEDIndication s:Chronic cough take 1 puff by mouth every day 120 each 4 Active metoprolol succinate ER (TOPROL XL) 12.5 mg TABLET SR 24 HR 24 hr tabletIndications:T juan Take 1 split tab (12.5 mg total) by mouth daily. 90 tablet 3 4 11/03/19 25 Active Problems Problem Noted Date Diagnosed Date Urinary incontinence, unspecified type 4 Parkinson's disease 05/26/2023 Emphysema of lung ([facility]) 03/31/2023 Tremor 03/31/2023 Hyperlipidemia 08/25/2018 Osteoporosis 11/30/2017 Overview (03/31/2023): Last Assessment & Plan: Last DEXA 2015 - BONE MINERAL DENSITY [...] ng multiple sites with positive rheumatoid factor ([facility]) 08/02/2016 Overview (03/31/2023): Positive RF and anti-ccp [...] (03/31/2023): Patulous Chronic diastolic heart fail ure ([facility]) 11/18/2017 03/31/2023 Overview (03/31/2023): Last Assessment & Plan: Controlled without medication. Followed by Dr. Bermeo. Heterozygous alpha 1-antitry psin deficiency ([facility]) 03/28/2017 03/31/2023 Adenomatous polyp of colon 11/28/2016 [...] 8,11/07/2011,2010 Influenza Adult (Generic) 11/24/2019,10/2016,12/02/2015,2014,12/03/2013 MODERNA COVID-19 (CIGARETTE MAKING MACHINE OPERATOR DARREL MELVA), MRNA, LNP-S, PF, 50 MCG/ [...] Maintenance Due Date Last Done Comments Hepatitis C 01/14/1968 Annual Medicare Wellness Visit 01/14/2013 Zoster Vaccines (2 of 2) 05/22/2020 03/27/2020 DTaP, Tdap and Td Vaccines (2 - Td or Tdap) 02/02/2021 02/02/2011 PHQ-2 (Physician Kashia) 02/21/2024 03/31/2023 COVID-19 Vaccine ( season) 2024 12/12/2022, 06/05/2021, 12/23/2020, Additional history exists Dexa Scan (General) Completed 02/01/2016, 5 RSV [...] on patient's age to complete this topic Insurance [employer] Care Teams Ice Delivery Driver Relationship Specialty Start Date End Date Jovi Tran DO [address] [address] PCP - General INTERNAL MEDICINE 01/26/24
--- OUTSIDE RECORDS SUMMARY | 2024-11-13 11:54 | XMS_ITS | Encounter Summary ---
Author Organization [facility] Address [address] [place] [address] Phone Care Team Providers Care Wad Compressor Operator Adjuster Name Role Phone Ambrosio Whittington MD Primary Care Provider [phone] Ambrosio Whittington MD Primary Care Provider [phone] Jarvis Castillo MD Primary Care Provider [phone] No, Physician Primary Care Provider Jovi Tran DO Primary Care Provider [phone] Jarvis Castillo MD Primary Care Provider [phone] Jarvis Castillo MD Primary Care Provider [phone] Jarvis Castillo MD Unavailable [phone] Thomas Ly MD Unavailable [phone] Lan Bermeo MD Unavailable [phone] Brady POTTER MD, John J. Unavailable [phone] Riki Andres MD Unavailable [phone] Jarvis Castillo MD Unavailable [phone] Encounter Details Date Type Department Care Team (Latest Contact Info) Description 03/29/2017 Orders Only [facility] CONVERSION Scanning, Provider Social History Tobacco Use Types Packs/Day Years Used Date Smoking Tobacco: Former Comments Unknown Sex and Gender Information Value Date Recorded Sex Assigned at Not on file Legal Sex Female 7:17 PM RETREAD MOLD OPERATOR Gender Identity Female 08/19/2018 6:19 PM CDT Sexual Orientation Not on file documented as of this encounter Plan of Treatment Not on file documented as of this encounter Procedures Procedure Name Priority Date/Time Associated Diagnosis Comments PULMONARY FUNCTION TEST (PFT) 03/29/2017 1:08 PM RETREAD MOLD OPERATOR documented in this encounter Results * PULMONARY FUNCTION TEST (PFT) (03/29/2017 1:08 PM RETREAD MOLD OPERATOR) Anatomical Region Laterality Modality PFT us Provider Scanning PFT ORDERABLES Final Result documented in this encounter Visit Diagnoses Not on filedocumented in this encounter Care Teams Wad Compressor Operator Adjuster Relationship Specialty Start Date End Date Ambrosio Whittington MD [address] [place] [address] BRADEN ROSARIO [address] [place] [address] PCP - General Internal Medicine 11/10/16 01/01/18 Ambrosio Whittington MD [address] [place] [address] BRADEN ROSARIO [address] [place] [address] PCP - General 01/03/18 01/08/18 Jarvis Castillo MD [address] [facility] [address] [facility] [address] [place] [address] PCP - General Internal Medicine 01/09/18 10/10/18 No, Physician PCP - General 10/11/18 11/14/18 Jovi Tran DO PCP - General Internal Medicine 11/15/18 01/30/19 Jarvis Castillo MD [address] [place] [address] PCP - General Internal Medicine 01/31/19 04/03/19 Jarvis Castillo MD [address] [place] [address] PCP - General 04/04/19 Jarvis Castillo MD [address] [place] [address] Internal Medicine 04/04/19 Thomas Ly MD [address] [place] [address] Rheumatology 02/07/17 Lan Bermeo MD [address] [facility] [address] [place] [address] Consulting Physician Cardiology 11/29/17 Sarmad Abreu III, MD [address] [place] [address] Consulting Physician Rheumatology 11/29/17 01/01/18 Riki Andres MD [address] [place] [address] Referring Physician Transplant 11/29/17 Jarvis Csatillo MD [address] [place] [address] Referring Physician Internal Medicine 01/02/18 8 documented as of this encounter
--- OUTSIDE RECORDS SUMMARY | 2024-11-13 11:54 | XMS_ITS | Clinical Summary ---
Author Organization [facility] Address [address] [facility] [place] [address] Care Team Providers Care Kaiawhina Name Role Phone Chilo Shah MD Primary Care Provider [phone] Source Comments [facility],non-owned Affiliates and Associated Physician Practices is amultiple site organization consisting of ambulatory clinics and hospital sitesin [place], [place], [place] and [place]. This disclosure is being madepursuant to the Care Everywhere program and may not contain all information available regarding this patient. Last updated 17.[facility] Medications * Be aware that medications may [...] yrs (1 - 1-dose 75+ series) 01/14/2023 DEPRESSION SCREENING 02/21/2024 COVID-19 VACCINE (1 - 2023-2 5 season) 2024 INFLUENZA VACCINE (#1) 2024 5, 12/03/2013 HEPATITIS [...] DENSITY AXIAL SKELETON Routine 02/01/2016 9:00 AM MASSAGE COORDINATOR HEPATITIS SCREEN ACUTE Routine 07/15/2014 10:18 AM CDT from Last 3 Months or Most Recently Relevant to Health Maintenance Results * DEXA BONE DENSITY AXIAL SKELETON (02/01/2016 9:00 AM MASSAGE COORDINATOR) Anatomical Region Laterality Modality Other Narrative 02/02/2016 8:41 AM MASSAGE COORDINATOR Examination: Dual energy x-ray absorptiometry of the lumbar spine and hip. Clinical Indication: 66-year-old female with prolonged steroid use screening for osteoporosis Findings: Detailed data from the exam is sent separately to the ordering physician and is also available on [employer], the Radiology Department's computerized picture archive system [...] the orderingphysician and is also available on [employer], the Radiology Department'[employer] picture archive system SUMMARY: Comparison made with [...] CDT) Hepatitis A Virus Antibody IgM Non-react [facility] Hepatitis B Virus Surface Antigen Non-react [facility] Hepatitis B Core Virus Antibody IgM Non-react [facility] Hepatitis C Antibody Non-react [facility] Comment: Hepatitis C Antibody screen indicates [...] LAB - CHEMISTRY OR DERABLES Final Result [address] [phone] from Last 3 Months or Most Recently Relevant to Health Maintenance [place] [address] MEDICARE [facility] Care Teams Kaiawhina Relationship Specialty Start Date End Date Chilo Shah MD [address] [place] [address] PCP - General 06/20/17
[2024-11-13 12:01] LABS: Alanine Aminotransferase 28 U/L (6-35); Albumin Level 4.4 g/dL (3.5-5.1); Alkaline Phosphatase 75 U/L (38-126); Amylase 94 U/L (30-110); Anion Gap 8 mmol/L (4-12); Aspartate Amino Transferase 33 U/L (14-36); Bilirubin,Total 0.5 mg/dL (0.2-1.3); Blood Urea Nitrogen 20 mg/dL (7-17); Calcium 9.2 mg/dL (8.4-10.2); Carbon Dioxide 25 mmol/L (22-30); Chloride 104 mmol/L (98-107); Estimated Glomerular Filt Rate > 60; Glucose 96 mg/dL (65-110); Lipase 127 U/L (23-300); Potassium 3.9 mmol/L (3.4-5.0); Sodium 137 mmol/L (137-145); Total Protein 7.7 g/dL (6.3-8.2)
== END 2024-11-13 10:58 | disposition home or self-care (01) ==
PROVIDERS: PCP Internal Medicine; Visit Provider Internal Medicine
DX: R19.8 Other specified symptoms and signs involving the digestive system and abdomen (principal); R79.9 Abnormal finding of blood chemistry, unspecified; K59.00 Constipation, unspecified; R19.7 Diarrhea, unspecified; R11.0 Nausea; Z79.899 Other long term (current) drug therapy
CPT/HCPCS: 36415; 76700; 80053; 82150; 83690; 85025

== ENCOUNTER 2024-11-21 07:35 | Outpatient (CLI) | payer OTHER, SELFPAY ==
--- OUTSIDE RECORDS SUMMARY | 2002-11-07 10:30 | XMS_ITS | Continuity of Care Document ---
Author Organization [facility] Address [id number] [place] [address] [place] [address] Phone Care Team Providers Care Family Protection Specialist Name Role Phone Epperson OD, Bobby Unavailable Unavailable Advance Directives Directive Yes / No Effective Date File Name No Information Encounters Encounter Description Practice Location Reason(s) For Visit Diagnoses Date Provider Providers Copied on Encounter [facility], [id number] [place] [address] [address], [place], [place], [id number], [place] tel:[phone] [facility] No Information Sep- 8-200 3 Epperson OD Bobby. [address] , [address], [place], [address], [place]. tel:[phone] Family History Family Member Type Diagnosis Age At Onset No Information Payers Payer name Insurance type Covered alliance party ID Authoriza tion(s) No Information Social [...]
--- NOTE | ~2024-11-21 | NM_ITS ---
EXAMINATION: NM_HEPATWOEF_NM DATE: 11/21/2024 10:49 INDICATION: Right upper quadrant abdominal pain. COMPARISON: Ultrasound 11/13/2024 TECHNIQUE: 5 mCi Tc-99m mebrofenin (Choletec) was administered intravenously. Scintigraphic images of the abdomen were obtained for one hour. Delayed images were obtained at 4 hours. FINDINGS: There is normal clearance of radiotracer from the blood pool. There is homogeneous tracer uptake by the liver. Activity progresses to the bowel and gallbladder. IMPRESSION: 1. Patent cystic duct and common duct. Reviewed, dictated and finalized at location E.
--- OUTSIDE RECORDS SUMMARY | 2024-11-21 07:39 | XMS_ITS | Clinical Summary ---
Author Organization [facility] Address [address] [facility] [place] [address] Care Team Providers Care Global Cmo Name Role Phone Chilo Shah MD Primary Care Provider [phone] Source Comments [facility],non-owned Affiliates and Associated Physician Practices is amultiple site organization consisting of ambulatory clinics and hospital sitesin [place], [place], [place] and [place]. This disclosure is being madepursuant to the Care Everywhere program and may not contain all information available regarding this patient. Last updated 17.[facility] Medications * Be aware that medications may [...] DENSITY AXIAL SKELETON Routine 02/01/2016 9:00 AM NON ACOUSTIC OPERATOR HEPATITIS SCREEN ACUTE Routine 07/15/2014 10:18 AM CDT from Last 3 Months or Most Recently Relevant to Health Maintenance Results * DEXA BONE DENSITY AXIAL SKELETON (02/01/2016 9:00 AM NON ACOUSTIC OPERATOR) Anatomical Region Laterality Modality Other Narrative 02/02/2016 8:41 AM NON ACOUSTIC OPERATOR Examination: Dual energy x-ray absorptiometry of the lumbar spine and hip. Clinical Indication: 66-year-old female with prolonged steroid use screening for osteoporosis Findings: Detailed data from the exam is sent separately to the ordering physician and is also available on [employer], the Radiology Department's computerized picture archive system [...] the orderingphysician and is also available on [employer], the Radiology Department'[employer] picture archive system SUMMARY: Comparison made with [...] CDT) Hepatitis A Virus Antibody IgM Non-react [facility] Hepatitis B Virus Surface Antigen Non-react [facility] Hepatitis B Core Virus Antibody IgM Non-react [facility] Hepatitis C Antibody Non-react [facility] Comment: Hepatitis C Antibody screen indicates no [...] LAB - CHEMISTRY OR DERABLES Final Result [address] [phone] from Last 3 Months or Most Recently Relevant to Health Maintenance [place] [address] MEDICARE [facility] Care Teams Global Cmo Relationship Specialty Start Date End Date Chilo Shah MD [address] [place] [address] PCP - General 06/20/17
--- OUTSIDE RECORDS SUMMARY | 2024-11-21 07:39 | XMS_ITS | Encounter Summary ---
Author Organization [facility] Address [address] [place] [address] Phone Care Team Providers Care Solid Waste Analyst Name Role Phone Ambrosio Whittington MD Primary Care Provider [phone] Ambrosio Whittington MD Primary Care Provider [phone] Jarvis Castillo MD Primary Care Provider [phone] No, Physician Primary Care Provider [phone] Jovi Tran DO Primary Care Provider [phone] Jarvis Castillo MD Primary Care Provider [phone] Jarvis Castillo MD Primary Care Provider [phone] Jarvis Castillo MD Unavailable [phone] Thomas Ly MD Unavailable [phone] Lan Bermeo MD Unavailable [phone] Brady POTTER MD, John J. Unavailable [phone] Riki Andres MD Unavailable [phone] Jarvis Castillo MD Unavailable [phone] Encounter Details Date Type Department Care Team (Latest Contact Info) Description 03/29/2017 Orders Only [facility] CONVERSION Scanning, Provider Social History Tobacco Use Types Packs/Day Years Used Date Smoking Tobacco: Former Comments Unknown Sex and Gender Information Value Date Recorded Sex Assigned at Not on file Legal Sex Female 7:17 PM MATTE CUTTER Gender Identity Female 08/19/2018 6:19 PM CDT Sexual Orientation Not on file documented as of this encounter Plan of Treatment Not on file documented as of this encounter Procedures Procedure Name Priority Date/Time Associated Diagnosis Comments PULMONARY FUNCTION TEST (PFT) 03/29/2017 1:08 PM MATTE CUTTER documented in this encounter Results * PULMONARY FUNCTION TEST (PFT) (03/29/2017 1:08 PM MATTE CUTTER) Anatomical Region Laterality Modality PFT us Provider Scanning PFT ORDERABLES Final Result documented in this encounter Visit Diagnoses Not on filedocumented in this encounter Care Teams Solid Waste Analyst Relationship Specialty Start Date End Date Ambrosio Whittington MD [facility] ZUNILDA ROSARIO [address] [place] [address] PCP - General Internal Medicine 11/10/16 01/01/18 Ambrosio Whittington MD [facility] ZUNILDA ROSARIO [address] [place] [address] PCP - General 01/03/18 01/08/18 Jarvis Castillo MD [facility] ZUNILDA ROSARIO [address] [place] [id number] PCP - General Internal Medicine 01/09/18 10/10/18 No, Physician PCP - General 10/11/18 11/14/18 Jovi Tran DO PCP - General Internal Medicine 11/15/18 01/30/19 Jarvis Castillo MD [address] [place], [place] [address]IRENA ROSARIO [address] [place] [address] [place] [address] PCP - General Internal Medicine 01/31/19 04/03/19 Jarvis Castillo MD [address] [place] [address] DR Angie [address]AR[address] [place] [address] PCP - General 04/04/19 Jarvis Castillo MD [address] [place] [address] DR Angie [address] [place] [address] Internal Medicine 04/04/19 Thomas Ly MD [address] [place] [address] Rheumatology 02/07/17 Lan Bermeo MD [address] [place] [address] Consulting Physician Cardiology 11/29/17 Sarmad Abreu III, MD [address] [place] [address] Consulting Physician Rheumatology 11/29/17 01/01/18 Riki Andres MD [address] [place] [address] Referring Physician Transplant 11/29/17 Jarvis Castillo MD [address] [place], [place] [address]MYRA [address]IO [address] [place] [address] Referring Physician Internal Medicine 01/02/18 8 documented as of this encounter
--- OUTSIDE RECORDS SUMMARY | 2024-11-21 07:39 | XMS_ITS | Clinical Summary ---
Author Organization [facility] [address] Address [address] [place] [address] Phone Care Team Providers Care Burnisher And Bumper Name Role Phone Jarvis Castillo MD Primary Care Provider [phone] Jarvis Castillo MD Unavailable [phone] Thomas Ly MD Unavailable [phone] Lan Bermeo MD Unavailable [phone] Riki Andres MD Unavailable [phone] Allergies Active Allergy Reactions Criticality Noted [...] 11/30/2017 Assessment & Plan (01/31/2019 12:08 PM PAYROLL CONSULTANT): Last DEXA 2015 - BONE MINERAL DENSITY [...] taking Assessment & Plan (01/31/2019 12:08 PM PAYROLL CONSULTANT): Moderate cdai. Will continue methotrexate to 20 [...] needed. Assessment & Plan (04/17/2018 12:32 PM PAYROLL CONSULTANT): Pt experienced a flare of joint pain [...] weeks Assessment & Plan (01/09/2018 8:54 AM PAYROLL CONSULTANT): She is doing well with minimal complaints. [...] months. Assessment & Plan (02/07/2017 9:11 AM PAYROLL CONSULTANT): Doing very well with essentially no complaints [...] Sinus Surgery - (Added by TW Conv) [place] TONSILLECTOMY PRIMARY/SEC ONDARY <AGE 10 Tonsillectomy - [...] on file Legal Sex Female 7:17 PM PAYROLL CONSULTANT Gender Identity Female 08/19/2018 6:19 PM CDT [...] HEPATITIS C ANTIBODY Routine 03/27/2020 11:53 AM PAYROLL CONSULTANT Need for hepatitis C screening test SCREENING MAMMOGRAM BILATERAL W JORDY Schedule Routine, Read Routine (OP Routine) 11/30/2017 12:11 PM CDT Breast cancer screening LUNG CANCER SCREENING Routine 04/28/2017 DEXA SCAN Routine 02/01/2016 COLONOSCOPY Routine 12/22/2014 from Last 3 Months or Most Recently Relevant to Health Maintenance Results * Hepatitis C antibody (03/27/2020 11:53 AM PAYROLL CONSULTANT) Hep C Ab Nonreactive Nonreactive COURTNEY ESPINOZA Comment:Antibodies to HCV no t detected. Does NOT exclude the possibility of recent exposure to HCV. Blood specimen (specimen) 03/27/2020 11:53 AM PAYROLL CONSULTANT 03/27/2020 12:07 PM PAYROLL CONSULTANT us Phillip Jones MD LAB MICROBIOLOGY - GENERAL O RDERABLES Edited Result - Final COURTNEY ESPINOZA [facility] Department [place] [address] * Screening Mammogram Bilateral W Jordy (11/30/2017 [...] Relevant to Health Maintenance Insurance MEDICARE [facility] INS CO [facility] MEDICARE SUPPLEMENT INSURANCE MEDICARE [facility] MEDICARE SUPPLEMENT INSURANCE [place]ANIELS [id number] [facility] MEDICARE SUPPLEMENT INSURANCE [place] [id number] MEDICARE Member Subscriber Plan / Payer (Ef fective 2022-Present) Name:Chandrika Munoz Relation to Subscriber:Self Name:Chandrika Munoz Payer ID:[id number] (NAIC) Type:[facility] MEDIC[facility] Address: [place] [id number] [place] [id number] UHC MEDICARE ADVANTAGE Care Teams Burnisher And Bumper Relationship Specialty Start Date End Date Jarvis Castillo MD PCP - General 04/04/19 Jarvis Castillo MD Internal Medicine 04/04/19 Thomas Ly MD [address] [place] [address] Rheumatology 12/19/17 Lan Bermeo MD [address] [facility] [address] [facility] [address] [place] [address] Consulting Physician Cardiology 11/29/17 Riki Andres MD [address] [facility] [address] [facility] [address] [place], [place] [id number] Referring Physician Transplant 11/29/17
--- OUTSIDE RECORDS SUMMARY | 2024-11-21 07:39 | XMS_ITS | Clinical Summary ---
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 Followed by Dr. Bermeo. 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 03/31/2023 Adenomatous polyp of [...] 8,11/07/2011,2010 Influenza Adult (Generic) 11/24/2019,10/2016,12/02/2015,2014,12/03/2013 MODERNA COVID-19 (MYSTERY SHOPPER DARREL MELVA), MRNA, LNP-S, PF, 50 MCG/ [...] Td or Tdap) 02/02/2021 02/02/2011 PHQ-2 (Physician Lima) 02/21/2024 03/31/2023 COVID-19 Vaccine ( season) 2024 12/12/2022, 06/05/2021, 12/23/2020, Additional history exists Influenza Adult (#1) 2024 10/27/2022, 10/20/2021, 11/03/2020, Additional history exists Dexa Scan (General) Completed [...] complete this topic Insurance [employer] Care Teams Typesetters Printer Relationship Specialty Start Date End Date Jovi Tran DO [address] [facility] [address] [place] [address] PCP - General INTERNAL MEDICINE 01/26/24
== END 2024-11-21 07:36 | disposition home or self-care (01) ==
PROVIDERS: PCP Internal Medicine; Visit Provider Internal Medicine
DX: K80.20 Calculus of gallbladder without cholecystitis without obstruction (principal)
CPT/HCPCS: 78226; A9537